=== PATIENT | female | born 1965 | race Caucasian/White ===

== ENCOUNTER 2017-01-15 09:50 | Emergency (ER) | payer MEDICAID ==
[~2017-01-15] VITALS: Ht 172.7 cm; Wt 79.4 kg
[~2017-01-15 09:50] MED LIST: ARTHROTEC50 MG PO; ATARAX,VISTARIL50 MG PO; CIPROFLOXACIN500 MG PO; CLARITIN10 MG PO; EFFEXOR75 MG PO; IRON50 MG PO; NICOTINE T21 MG/24 H T; NORCO 325 MG-51 TAB PO; PRILOSEC40 MG PO; PYRIDIATE200 MG PO; ROBAXIN750 MG PO; THERA1 TAB PO; VITAMIN B-11 TAB PO; Zofran4 MG PO
[2017-01-15 10:38] LABS: BASO % 0.4 % (0.0-1.0); EOS # 0.2 10*3/uL (0.0-0.4); EOS % 3.8 % (1.0-4.0); HEMATOCRIT 32.9 % (37.0-47.0); HEMOGLOBIN 10.8 g/dl (12.0-16.0); LYMPH # 0.6 10*3/uL (1.3-4.4); LYMPH % 11.5 % (27.0-41.0); MEAN CORPUSCULAR HGB 32.8 pg (27.0-31.0); MEAN CORPUSCULAR HGB CONC 32.8 g/dl (33.0-37.0); MEAN PLATELET VOLUME 9.4 fl (9.6-12.3); MONO # 0.5 10*3/uL (0.1-1.0); MONO % 8.6 % (3.0-9.0); NEUT % 75.3 % (47.0-73.0); PLATELET COUNT AUTOMATED 303 10*3/uL (130-400); RED BLOOD COUNT 3.29 10*6/uL (4.10-5.10); RED CELL DISTRI WIDTH 12.9 % (0-14.5); WHITE BLOOD COUNT 5.2 10*3/uL (4.8-10.8)
[2017-01-15 10:52] LABS: ALBUMIN 2.7 gm/dl (3.1-4.5); ALKALINE PHOSPHATASE 180 U/L (45-117); BILIRUBIN, TOTAL 0.3 mg/dl (0.2-1.0); BUN 7 mg/dl (7-24); CARBON DIOXIDE 25 mmol/L (21-32); CHLORIDE 105 mmol/L (98-107); EST GLOM FILT AFRICAN AMERICAN > 60 ml/min; GLUCOSE 94 mg/dL (65-99); SGOT/AST 26 IU/L (3-35); SGPT/ALT 46 U/L (12-78); SODIUM 139 mmol/L (136-145); TOTAL PROTEIN 6.9 gm/dL (6.4-8.2)
[2017-01-15 11:09] LABS: BILIRUBIN 1+ (NEGATIVE); BLOOD NEGATIVE (NEGATIVE); CLARITY CLOUDY (CLEAR); COLOR YELLOW (YELLOW); GLUCOSE NEGATIVE (NEGATIVE); KETONE TRACE (NEGATIVE); LEUKO ESTERASE NEGATIVE (NEGATIVE); NITRITE NEGATIVE (NEGATIVE); PROTEIN TRACE (NEGATIVE); SPECIFIC GRAVITY 1.015 (1.005-1.030)
[2017-01-15 11:33] LABS: BACTERIA TRACE; RBC 0-2 rbc/hpf (0-2); URINE REFLEX COMMENT NO (NO)
== END 2017-01-15 15:06 | disposition short-term general hospital (02) ==
LOC: ED 09:50
PROVIDERS: Nurse Practitioner Family
DX: K46.0 Unspecified abdominal hernia with obstruction, without gangrene (principal); D64.9 Anemia, unspecified; R03.0 Elevated blood-pressure reading, without diagnosis of hypertension; E46 Unspecified protein-calorie malnutrition; F17.200 Nicotine dependence, unspecified, uncomplicated; K21.9 Gastro-esophageal reflux disease without esophagitis; Z79.899 Other long term (current) drug therapy; Z88.5 Allergy status to narcotic agent; Z90.710 Acquired absence of both cervix and uterus; Z98.84 Bariatric surgery status; Z98.890 Other specified postprocedural states; Z88.1 Allergy status to other antibiotic agents; Z88.8 Allergy status to other drugs, medicaments and biological substances

== ENCOUNTER → 2017-01-28 | Outpatient (CLI) | payer MEDICAID ==
[~2017-01-28] MED LIST changes: +EFFEXOR XR37.5 MG PO; +IBU800 M1 PO; +LASIX20 MG PO; +PRILOSEC20 M1 PO
== END | disposition home or self-care (01) ==
LOC: US 13:29
DX: R60.0 Localized edema (principal)

== ENCOUNTER 2017-01-29 10:57 | Emergency (ER) | payer MEDICAID ==
[~2017-01-29] VITALS: Ht 172.7 cm; Wt 94.3 kg
[~2017-01-29 10:57] MED LIST changes: -EFFEXOR XR37.5 MG PO; -IBU800 M1 PO; -LASIX20 MG PO; -PRILOSEC20 M1 PO
[2017-01-29] MEDS ORDERED: EFFEXOR XR37.5 MG PO (11:06)
[2017-01-29] MEDS ORDERED: PRILOSEC20 M1 PO (11:06)
[2017-01-29] MEDS ORDERED: IBU800 M1 PO (11:07)
[2017-01-29] MEDS ORDERED: LASIX20 MG PO (11:07)
[2017-01-29 11:52] LABS: HEMATOCRIT 31.1 % (37.0-47.0); HEMOGLOBIN 9.7 g/dl (12.0-16.0); MEAN CELL VOLUME 100.6 fl (81.0-99.0); MEAN CORPUSCULAR HGB 31.4 pg (27.0-31.0); MEAN CORPUSCULAR HGB CONC 31.2 g/dl (33.0-37.0); MEAN PLATELET VOLUME 10.1 fl (9.6-12.3); PLATELET COUNT AUTOMATED 612 10*3/uL (130-400); RED BLOOD COUNT 3.09 10*6/uL (4.10-5.10); RED CELL DISTRI WIDTH 13.6 % (0-14.5); WHITE BLOOD COUNT 8.6 10*3/uL (4.8-10.8)
[2017-01-29 12:01] LABS: INTERNATIONAL NORM RATIO 1.2 (2.0-3.5); PROTHROMBIN TIME 13.2 SECONDS (9.0-12.4)
[2017-01-29 12:06] LABS: ALBUMIN 1.8 gm/dl (3.1-4.5); ALKALINE PHOSPHATASE 179 U/L (45-117); BILIRUBIN, TOTAL 0.6 mg/dl (0.2-1.0); BUN 10 mg/dl (7-24); CARBON DIOXIDE 29 mmol/L (21-32); CHLORIDE 106 mmol/L (98-107); EST GLOM FILT AFRICAN AMERICAN > 60 ml/min; GLUCOSE 72 mg/dL (65-99); POTASSIUM 3.2 mmol/L (3.5-5.1); SGOT/AST 19 IU/L (3-35); SGPT/ALT 12 U/L (12-78); SODIUM 145 mmol/L (136-145); TOTAL PROTEIN 6.3 gm/dL (6.4-8.2)
[2017-01-29 12:10] LABS: BASOPHIL # 0.2 10*3/uL (0-0.1); BASOPHILS 2 % (0-1); LYMPHOCYTE # 1.2 10*3/uL (1.3-4.4); METAMYELOCYTES 1 % (0-0); MONOCYTE # 0.4 10*3/uL (0.1-1.0); NEUTROPHIL # 6.7 10*3/uL (2.3-7.9); NEUTROPHILS 78 % (47-73); PLATELET SUFFICIENCY HIGH (NORMAL); TOTAL CELLS COUNTED 100 #CELLS
== END 2017-01-29 14:54 | disposition short-term general hospital (02) ==
LOC: ED 10:57
PROVIDERS: Emergency Medicine
DX: K56.60 Unspecified intestinal obstruction (principal); K21.9 Gastro-esophageal reflux disease without esophagitis; F17.200 Nicotine dependence, unspecified, uncomplicated; D64.9 Anemia, unspecified; Z90.710 Acquired absence of both cervix and uterus; Z98.890 Other specified postprocedural states; Z85.048 Personal history of other malignant neoplasm of rectum, rectosigmoid junction, and anus; Z98.84 Bariatric surgery status; Z79.899 Other long term (current) drug therapy; Z88.5 Allergy status to narcotic agent; Z88.1 Allergy status to other antibiotic agents

== ENCOUNTER 2017-02-07 19:08 | Emergency (ER) | payer OTHER ==
[~2017-02-07] VITALS: Ht 172.7 cm; Wt 81.6 kg
[~2017-02-07 19:08] MED LIST changes: +EFFEXOR XR37.5 MG PO; +IBU800 M1 PO; +LASIX20 MG PO; +PRILOSEC20 M1 PO
[2017-02-07 20:20] LABS: HEMATOCRIT 29.9 % (37.0-47.0); HEMOGLOBIN 9.5 g/dl (12.0-16.0); MEAN CORPUSCULAR HGB 31.1 pg (27.0-31.0); MEAN CORPUSCULAR HGB CONC 31.8 g/dl (33.0-37.0); MEAN PLATELET VOLUME 10.3 fl (9.6-12.3); PLATELET COUNT AUTOMATED 499 10*3/uL (130-400); RED BLOOD COUNT 3.05 10*6/uL (4.10-5.10); RED CELL DISTRI WIDTH 14.6 % (0-14.5); WHITE BLOOD COUNT 9.1 10*3/uL (4.8-10.8)
[2017-02-07 20:37] LABS: ALBUMIN 1.9 gm/dl (3.1-4.5); ALKALINE PHOSPHATASE 187 U/L (45-117); BILIRUBIN, TOTAL 0.3 mg/dl (0.2-1.0); BUN 2 mg/dl (7-24); CARBON DIOXIDE 24 mmol/L (21-32); CHLORIDE 105 mmol/L (98-107); EST GLOM FILT AFRICAN AMERICAN > 60 ml/min; GLUCOSE 106 mg/dL (65-99); POTASSIUM 3.9 mmol/L (3.5-5.1); SGOT/AST 17 IU/L (3-35); SGPT/ALT 11 U/L (12-78); SODIUM 141 mmol/L (136-145); TOTAL PROTEIN 6.3 gm/dL (6.4-8.2)
[2017-02-07 20:38] LABS: LYMPHOCYTE # 0.4 10*3/uL (1.3-4.4); MONOCYTE # 0.2 10*3/uL (0.1-1.0); NEUTROPHIL # 8.6 10*3/uL (2.3-7.9); NEUTROPHILS 94 % (47-73); TOTAL CELLS COUNTED 100 #CELLS
[2017-02-07 20:39] LABS: PLATELET SUFFICIENCY HIGH (NORMAL); POLYCHROMASIA SLIGHT
[2017-02-07 20:40] LABS: BILIRUBIN, DIRECT 0.2 mg/dL (0.0-0.2)
[2017-02-07] MEDS ORDERED: SENOKOT PO (21:16)
== END 2017-02-08 00:55 | disposition short-term general hospital (02) ==
LOC: ED 19:08
PROVIDERS: Emergency Medicine
DX: K56.60 Unspecified intestinal obstruction (principal); K21.9 Gastro-esophageal reflux disease without esophagitis; Z88.6 Allergy status to analgesic agent; Z88.1 Allergy status to other antibiotic agents; Z79.899 Other long term (current) drug therapy; Z85.038 Personal history of other malignant neoplasm of large intestine; Z98.84 Bariatric surgery status; Z90.49 Acquired absence of other specified parts of digestive tract; Z98.890 Other specified postprocedural states

== ENCOUNTER 2017-02-22 00:53 | Emergency (ER) | payer OTHER ==
[~2017-02-22] VITALS: Ht 172.7 cm; Wt 77.1 kg
[~2017-02-22 00:53] MED LIST changes: +SENOKOT PO
[2017-02-22 01:25] LABS: BASO % 0.5 % (0.0-1.0); EOS # 0.4 10*3/uL (0.0-0.4); EOS % 4.7 % (1.0-4.0); HEMATOCRIT 36.8 % (37.0-47.0); HEMOGLOBIN 11.5 g/dl (12.0-16.0); LYMPH % 23.3 % (27.0-41.0); MEAN CELL VOLUME 100.5 fl (81.0-99.0); MEAN CORPUSCULAR HGB 31.4 pg (27.0-31.0); MEAN CORPUSCULAR HGB CONC 31.3 g/dl (33.0-37.0); MEAN PLATELET VOLUME 9.9 fl (9.6-12.3); MONO # 1.1 10*3/uL (0.1-1.0); MONO % 12.9 % (3.0-9.0); NEUT % 58.2 % (47.0-73.0); PLATELET COUNT AUTOMATED 518 10*3/uL (130-400); RED BLOOD COUNT 3.66 10*6/uL (4.10-5.10); RED CELL DISTRI WIDTH 18.4 % (0-14.5); WHITE BLOOD COUNT 8.5 10*3/uL (4.8-10.8)
[2017-02-22 01:41] LABS: ALBUMIN 2.3 gm/dl (3.1-4.5); ALKALINE PHOSPHATASE 254 U/L (45-117); BILIRUBIN, TOTAL 0.6 mg/dl (0.2-1.0); BUN 14 mg/dl (7-24); CARBON DIOXIDE 22 mmol/L (21-32); CHLORIDE 101 mmol/L (98-107); EST GLOM FILT AFRICAN AMERICAN 48 ml/min; GLUCOSE 98 mg/dL (65-99); MAGNESIUM 2.4 mg/dL (1.5-2.1); POTASSIUM 3.8 mmol/L (3.5-5.1); SGOT/AST 35 IU/L (3-35); SGPT/ALT 19 U/L (12-78); SODIUM 137 mmol/L (136-145); TOTAL PROTEIN 7.1 gm/dL (6.4-8.2); TROPONIN I < 0.015 ng/ml (<0.045)
[2017-02-22] MEDS ORDERED: MIRALAX POWDER255 GM PO (02:06)
[2017-02-22] MEDS ORDERED: DULCOLAX STOOL100 MG PO (02:07)
[2017-02-22] MEDS ORDERED: ZOFRAN4 MG PO (02:08)
== END 2017-02-22 05:39 | disposition short-term general hospital (02) ==
LOC: ED 00:53
PROVIDERS: Emergency Medicine Emergency Medical Services
DX: K56.60 Unspecified intestinal obstruction (principal); Z98.84 Bariatric surgery status; Z90.49 Acquired absence of other specified parts of digestive tract; K21.9 Gastro-esophageal reflux disease without esophagitis; F17.200 Nicotine dependence, unspecified, uncomplicated; Z88.1 Allergy status to other antibiotic agents; Z88.2 Allergy status to sulfonamides; Z88.6 Allergy status to analgesic agent; Z79.899 Other long term (current) drug therapy

== ENCOUNTER 2017-03-14 16:04 | Emergency (ER) | payer OTHER ==
[~2017-03-14] VITALS: Ht 172.7 cm; Wt 78.0 kg
[~2017-03-14 16:04] MED LIST changes: +DULCOLAX STOOL100 MG PO; +MIRALAX POWDER255 GM PO; +ZOFRAN4 MG PO
[2017-03-14] MEDS ORDERED: TPN ELECTROLYTE20 M1 IV (16:12)
[2017-03-14 17:07] LABS: BASO % 0.3 % (0.0-1.0); EOS # 0.3 10*3/uL (0.0-0.4); EOS % 3.8 % (1.0-4.0); HEMATOCRIT 25.5 % (37.0-47.0); HEMOGLOBIN 8.1 g/dl (12.0-16.0); LYMPH # 1.2 10*3/uL (1.3-4.4); LYMPH % 17.3 % (27.0-41.0); MEAN CELL VOLUME 102.4 fl (81.0-99.0); MEAN CORPUSCULAR HGB 32.5 pg (27.0-31.0); MEAN CORPUSCULAR HGB CONC 31.8 g/dl (33.0-37.0); MEAN PLATELET VOLUME 9.7 fl (9.6-12.3); MONO # 0.5 10*3/uL (0.1-1.0); MONO % 7.4 % (3.0-9.0); NEUT % 70.8 % (47.0-73.0); PLATELET COUNT AUTOMATED 533 10*3/uL (130-400); RED BLOOD COUNT 2.49 10*6/uL (4.10-5.10); RED CELL DISTRI WIDTH 17.9 % (0-14.5); WHITE BLOOD COUNT 7.1 10*3/uL (4.8-10.8)
[2017-03-14 17:24] LABS: ALBUMIN 1.8 gm/dl (3.1-4.5); ALKALINE PHOSPHATASE 141 U/L (45-117); BILIRUBIN, TOTAL 0.3 mg/dl (0.2-1.0); BUN 22 mg/dl (7-24); CARBON DIOXIDE 27 mmol/L (21-32); CHLORIDE 105 mmol/L (98-107); EST GLOM FILT AFRICAN AMERICAN > 60 ml/min; GLUCOSE 126 mg/dL (65-99); POTASSIUM 3.7 mmol/L (3.5-5.1); SGOT/AST 32 IU/L (3-35); SGPT/ALT 32 U/L (12-78); SODIUM 142 mmol/L (136-145); TOTAL PROTEIN 5.8 gm/dL (6.4-8.2)
== END 2017-03-14 18:31 | disposition short-term general hospital (02) ==
LOC: ED 16:04
PROVIDERS: Registered Nurse
DX: K56.60 Unspecified intestinal obstruction (principal); D64.9 Anemia, unspecified; M54.5 Low back pain; F17.200 Nicotine dependence, unspecified, uncomplicated; Z88.1 Allergy status to other antibiotic agents; Z88.6 Allergy status to analgesic agent; Z79.899 Other long term (current) drug therapy; Z90.49 Acquired absence of other specified parts of digestive tract; Z98.890 Other specified postprocedural states; Z90.710 Acquired absence of both cervix and uterus; Z98.84 Bariatric surgery status

== ENCOUNTER → 2017-04-28 | Outpatient (CLI) | payer OTHER ==
[~2017-04-28] MED LIST changes: +TPN ELECTROLYTE20 M1 IV
== END | disposition home or self-care (01) ==
LOC: LAB 12:26
DX: E53.8 Deficiency of other specified B group vitamins (principal)

== ENCOUNTER 2017-05-03 12:37 | Emergency (ER) | payer OTHER ==
[~2017-05-03] VITALS: Wt 72.1 kg
[2017-05-03 13:45] LABS: BILIRUBIN NEGATIVE (NEGATIVE); BLOOD NEGATIVE (NEGATIVE); CLARITY CLEAR (CLEAR); COLOR YELLOW (YELLOW); GLUCOSE NEGATIVE (NEGATIVE); KETONE NEGATIVE (NEGATIVE); LEUKO ESTERASE 1+ (NEGATIVE); NITRITE NEGATIVE (NEGATIVE); UROBILINOGEN 0.2 E.U./dl (0.2-1.0)
[2017-05-03 13:46] LABS: HEMATOCRIT 32.3 % (37.0-47.0); HEMOGLOBIN 10.1 g/dl (12.0-16.0); MEAN CELL VOLUME 95.8 fl (81.0-99.0); MEAN CORPUSCULAR HGB CONC 31.3 g/dl (33.0-37.0); MEAN PLATELET VOLUME 9.1 fl (9.6-12.3); PLATELET COUNT AUTOMATED 282 10*3/uL (130-400); RED BLOOD COUNT 3.37 10*6/uL (4.10-5.10); RED CELL DISTRI WIDTH 12.7 % (0-14.5); WHITE BLOOD COUNT 5.5 10*3/uL (4.8-10.8)
[2017-05-03 14:06] LABS: ALBUMIN 2.6 gm/dl (3.1-4.5); ALKALINE PHOSPHATASE 144 U/L (45-117); BUN 30 mg/dl (7-24); CHLORIDE 105 mmol/L (98-107); CREATININE 0.78 mg/dL (0.55-1.02); POTASSIUM 4.5 mmol/L (3.5-5.1); SGOT/AST 91 IU/L (3-35); SGPT/ALT 51 U/L (12-78); SODIUM 136 mmol/L (136-145); TOTAL PROTEIN 6.5 gm/dL (6.4-8.2)
[2017-05-03 14:06] LABS: BACTERIA 2+; CALCIUM OXALATE CRYSTALS 3+
[2017-05-03 14:12] LABS: BASOPHILS 1 % (0-1); PLATELET SUFFICIENCY NORMAL (NORMAL); TOTAL CELLS COUNTED 100 #CELLS
[2017-05-03 14:14] LABS: POLYCHROMASIA SLIGHT
[2017-05-03] MEDS ORDERED: TRAMADOL HCL50 MG PO (14:33)
== END 2017-05-03 15:00 | disposition home or self-care (01) ==
LOC: ED 12:37
PROVIDERS: Emergency Medicine
DX: M54.5 Low back pain (principal); R42 Dizziness and giddiness; K21.9 Gastro-esophageal reflux disease without esophagitis; F17.200 Nicotine dependence, unspecified, uncomplicated; Z88.6 Allergy status to analgesic agent; Z88.1 Allergy status to other antibiotic agents; Z79.899 Other long term (current) drug therapy

== ENCOUNTER → 2017-06-30 | Outpatient (CLI) | payer OTHER ==
[~2017-06-30] MED LIST changes: +TRAMADOL HCL50 MG PO
== END | disposition home or self-care (01) ==
LOC: RAD 06-23 08:00
DX: Z01.818 Encounter for other preprocedural examination (principal); L98.8 Other specified disorders of the skin and subcutaneous tissue

== ENCOUNTER → 2017-07-13 | Outpatient (CLI) | payer OTHER ==
[2017-07-13 10:34] LABS: HEMOGLOBIN 10.7 g/dl (12.0-16.0); MEAN CELL VOLUME 94.8 fl (81.0-99.0); MEAN CORPUSCULAR HGB 30.7 pg (27.0-31.0); MEAN CORPUSCULAR HGB CONC 32.4 g/dl (33.0-37.0); MEAN PLATELET VOLUME 10.1 fl (9.6-12.3); RED BLOOD COUNT 3.48 10*6/uL (4.10-5.10); RED CELL DISTRI WIDTH 18.8 % (0-14.5); WHITE BLOOD COUNT 4.4 10*3/uL (4.8-10.8)
[2017-07-13 10:55] LABS: ALBUMIN 1.9 gm/dl (3.1-4.5); ALKALINE PHOSPHATASE 239 U/L (45-117); BUN 6 mg/dl (7-24); CHLORIDE 110 mmol/L (98-107); CHOLESTEROL 77 mg/dL (<200); CREATININE 0.72 mg/dL (0.55-1.02); HDL CHOLESTEROL 51 mg/dl (40-60); LDL CHOLESTEROL 12 mg/dL (9-159); POTASSIUM 3.8 mmol/L (3.5-5.1); SGOT/AST 25 IU/L (3-35); SGPT/ALT 24 U/L (12-78); SODIUM 141 mmol/L (136-145); TOTAL PROTEIN 5.7 gm/dL (6.4-8.2); TRIGLYCERIDES 71 mg/dl (<150); VLDL CHOLESTEROL 14 mg/dL (6-40)
[2017-07-13 11:31] LABS: VITAMIN D, 25-HYDROXY 15.7 ng/mL (30-100)
== END | disposition home or self-care (01) ==
LOC: LAB 09:44
PROVIDERS: Family Medicine
DX: R53.83 Other fatigue (principal); K46.9 Unspecified abdominal hernia without obstruction or gangrene; R10.9 Unspecified abdominal pain; E55.9 Vitamin D deficiency, unspecified; E78.00 Pure hypercholesterolemia, unspecified; D64.9 Anemia, unspecified

== ENCOUNTER → 2017-07-23 | Outpatient (CLI) | payer OTHER | END | disposition home or self-care (01) | LOC: LAB 11:56 | DX: R05 Cough (principal); E16.2 Hypoglycemia, unspecified ==

== ENCOUNTER 2017-07-31 16:08 | Inpatient (IN) | payer OTHER ==
[~2017-07-31] VITALS: Ht 171.4 cm; Wt 72.6 kg
--- NOTE | ~2017-07-31 | WRIGHTHP ---
[place], [place] PATIENT HISTORY AND PHYSICAL EXAM NAME[id number] UN[facility] #: [id number] ROOM: 507 DOCTOR: DORIE STANLEY MD BIRTHDATE: [birth year] DOS: 07/31/2017 CONTINUATION DICTATION PAST MEDICAL HISTORY: 1. The patient severe protein-calorie malnutrition. 2. Disability and failure to thrive. 3. History of gastric bypass surgery 17 years back. 4. Conklin-Germain syndrome history. 5. History of alcohol abuse and dependence. 6. History of nicotine smoke dependence. The patient presented to the Emergency Department with adverse reaction to allergic reaction from Z-ELIZABETH, which she had taken a week earlier and was just finishing the treatment. The patient had developed swelling in her legs, rash in her lower extremities, lower abdomen, some soreness in her mouth and she was feeling weak. After evaluation in the Emergency Department, she was admitted and started on Solu-Medrol, Phenergan and diuresis with Lasix. The patient started improving with treatment. REVIEW OF SYSTEMS: LUNGS: No increasing shortness of breath or wheezing. GASTROINTESTINAL: No nausea, vomiting, diarrhea or constipation. CARDIOVASCULAR: No chest pains or palpitations. FAMILY HISTORY: Noncontributory. MEDICATIONS: Omeprazole, loratadine, Effexor, ibuprofen, sennosides, MiraLax, Colace, ondansetron. ALLERGIES: Known allergies to CODEINE, SULFUR, BACTRIM. PHYSICAL EXAMINATION: GENERAL: Alert, oriented x 3, moderately obese, generalized weakness. HEENT AND NECK: Extraocular movements are intact. Sclerae are anicteric. Oral mucosa is moist and clean. No obvious facial weakness. Neck is supple without any lymphadenopathy. No thyromegaly. No JVD. No carotid arterial bruits. LUNGS: Clear to auscultation. No wheezing. No rhonchi. CARDIOVASCULAR SYSTEM: Heart rate is regular in rate and rhythm. S1 and S2 normally audible. No significant murmur or any other abnormal cardiac sounds. ABDOMEN: Soft, nontender. No obvious organomegaly. Bowel sounds are present. No obvious herniation. The patient also has multiple scars from multiple previous abdominal surgeries in her lower abdomen and 2 fistulas, 1 in the midline below the umbilicus and 1 in the right lower quadrant. EXTREMITIES: 3+ leg and pedal edema CENTRAL NERVOUS SYSTEM: Alert and oriented x 3. Cranial nerves II-XII are intact. Speech is normal. The patient is able to move all extremities. Normal muscle strength. Deep tendon reflexes are equal on both sides. Plantars were downgoing. SKIN: With red striae over her lower extremities and lower abdomen. [place], [place] PATIENT HISTORY AND PHYSICAL EXAM NAME: ILENE WALKER UNIT #: [id number] ROOM: [facility] DOCTOR: DORIE STANLEY MD BIRTHDATE: [birth year] LABORATORY DATA: Hemoglobin 9.8, white cell count of 4500. Albumin level of 1.9 only. IMPRESSION: 1. Drug reaction to Z-ELIZABETH, treated with Solu-Medrol, Benadryl, diuresis with Lasix. The patient is starting to feel better. 2. Severe protein calorie malnutrition related to multiple bowel surgeries in the past. 3. History of colorectal cancer, status post resection in 2010 with fistulous, evaluated by Infectious Disease specialist. The patient to follow up with the GI surgeons for repeat surgery. The patient also seen by Dr. Hebert, the general surgeon here. 4. Dehydration and elevation of BUN and creatinine, improved with hydration, normal saline. 5. Chronic leukopenia and anemia from uncertain etiology. DORIE STANLEY MD CM:HISPHYS:PATIENT HISTORY AND PHYSICAL EXAMINATION 06 49 DORIE STANLEY MD 08/02/171850 interface
--- NOTE | ~2017-07-31 | PR ---
[place], [place] PROGRESS NOTE NAME: ILENE WALKER UNIT #: [id number] ROOM: 507 DOCTOR: DORIE STANLEY MD BIRTHDATE: [birth year] DOS: 08/02/2017 SUBJECTIVE: The patient is feeling much better with treatment with diuresis and Solu-Medrol and Benadryl. She is responding to treatment well. OBJECTIVE: VITAL SIGNS: Stable. GENERAL APPEARANCE: The patient is alert and oriented x 3, in no visible distress. HEENT AND NECK: Exam within normal limits. CARDIOVASCULAR SYSTEM: Heart rate is regular in rate and rhythm. S1 and S2 normally audible. LUNGS: Clear to auscultation. ABDOMEN: Soft, nontender. No obvious organomegaly. Bowel sounds are present. EXTREMITIES: Reduced leg edema. The patient has striae still over her lower extremities. IMPRESSION: 1. Overall poor health, severe protein calorie malnutrition and malnourishment related to multiple bowel surgeries. 2. Drug rash and leg edema related to ____. 3. Hypoalbuminemia, improving with diuresis with IV Lasix. 4. Chronic leukopenia and anemia related to her health status. Hemoglobin and white cell counts are being monitored. 5. 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 The patient to follow up as an outpatient with her GI surgeons. 6. Dehydration and elevation of BUN and creatinine has resolved with hydration and normal saline. DORIE STANLEY MD CM:PNTRANS 10 11 DORIE STANLEY MD 08/02/17 221 interface
--- NOTE | ~2017-07-31 | WRIGHTHP ---
[place], [place] PATIENT HISTORY AND PHYSICAL EXAM NAME: ILENE WALKER UNIT #: [id number] ROOM: 507 DOCTOR: LIZETH RATLIFF,DORIE Cosby BIRTHDATE: [birth year] DOS: 07/31/2017 HISTORY OF PRESENT ILLNESS: The patient is a 52-year-old female with a past medical history of: 1. Colorectal cancer, status post surgery in 2010 and fistulas. 2. History of gastric bypass surgery in year 1999. 3. History of cholecystectomy. 4. Previous history of renal abscess. 5. Multiple hernia surgeries DICTATION ENDS HERE DORIE STANLEY MD CM:HISPHYS:PATIENT HISTORY AND PHYSICAL EXAMINATION 1506 1627 DORIE STANLEY MD 08/03/17 1046 CHANCE CAUSEY.R
--- NOTE | ~2017-07-31 | CON ---
[place], [place] REPORT OF CONSULTATION NAME: ILENE WALKER UNIT #: [id number] ROOM: 507 DOCTOR: EDUAR LILLY,DECEMBER BIRTHDATE: [birth year] DOS: HISTORY OF PRESENT ILLNESS: The patient is a pleasant 52-year-old female who came to the Emergency Room with a swelling of her lower extremities. She has recently been on Z-ELIZABETH for upper respiratory infection, but no other antibiotics. She has lower abdominal chronic fistula from surgery that she had in January of this year. She had had an infected up abdominal mesh, which was removed in [place]. She does have plans of possibly repairing the fistula in September. She is very malnourished with low albumin, lower extremity edema. She has had no fevers. WBCs are 3.4. Also complains of her mouth burning when she eats or drinks. PAST MEDICAL HISTORY: As above as well as , cholecystectomy, hysterectomy, tonsils and adenoidectomy, gastric bypass, multiple hernia surgeries, renal abscess. SOCIAL HISTORY: She has greater than 66-isyg-euin history of smoking, states she stopped recently, occasional social alcohol use. Denies illicit drug use. CURRENT MEDICATIONS: Include Lac-Hydrin, nystatin, Effexor, Claritin, Wellbutrin, Prilosec, Benadryl, Solu-Medrol, Zofran, Motrin, Colace. LABORATORY DATA: WBC is 3.4, platelets 176. BUN 7, creatinine 0.94. Lactic acid 1.3. Blood and urine cultures negative. REVIEW OF SYSTEMS: As above in history of present illness. She has been afebrile since admission. PHYSICAL EXAMINATION: VITAL SIGNS: Show temperature 98.3, pulse 64, respirations 18, BP 107/63: GENERAL: A 52-year-old female, in no acute distress. HEAD, EYES, EARS, NOSE AND THROAT: Normocephalic. Tongue bright red and tender. LUNGS: Clear to auscultation bilaterally. Respirations even and unlabored. HEART: Regular rhythm. No murmur appreciated. ABDOMEN: Soft, extensive scarring, lower abdomen with small wound with purulent discharge. No tenderness. EXTREMITIES: +2 edema bilateral of lower extremities with cracking dry skin. No signs of cellulitis. SKIN: Warm, pale, dry, free of rashes. ASSESSMENT AND PLAN: Abdominal fistula for which no antibiotics are indicated at this point, as well as thrush for which nystatin swish and swallow has already been ordered. I did discuss the case with Dr. Hyde and Dr. Jessi Bateman. No further antibiotics are indicated at this point. Follow up on her cultures. ADDENDUM To the Infectious Disease consult on the patient from August 01. After [place], [place] REPORT OF CONSULTATION NAME: ILENE WALKER UNIT #: [id number] ROOM: [facility] DOCTOR: EDUAR LILLYDECEMBER BIRTHDATE: [birth year] reviewing the labs, microbiology and radiographs, I agree with the above plans as described. We will follow the patient up clinically and adjust accordingly. SUMIT WITT CNP JESSI BATEMAN MD CM:CONSTR:REPORT OF CONSULTATION 1636 08/03/17 0230 interface
--- NOTE | ~2017-07-31 | WRIGHTHP ---
[place], [place] PATIENT HISTORY AND PHYSICAL EXAM [id number] UNIT #: [id number] ROOM: 507 DOCTOR: DORIE STANLEY MD BIRTHDATE: [birth year] DOS: 07/31/2017 HISTORY OF PRESENT ILLNESS: The patient is a 52-year-old female with a past medical history of Colorectal cancer, status post surgery in 2010 and fistulas, history of gastric bypass surgery in year 1999, history of cholecystectomy, previous history of renal abscess, and multiple hernia surgeries. The patient presented with a drug allergic reaction from Z-ELIZABETH with skin rash, itching, leg edema, some irritation in her throat. The patient was taking this antibiotic for respiratory and sinus infection recently, about 5 days back. In the Emergency Department, she was found to have leg edema, red lines running over her lower abdomen, back and legs and the symptoms were getting progressively worse since Wednesday. After evaluation in the Emergency Department, she was found to have acute kidney injury with some elevation of creatinine, leukopenia, drug reaction and recommended for admission for the management. After admission, the patient says her leg swelling and rash is improving. The patient still has some irritation in her mouth and a sore throat. No chest pain. No shortness of breath. No GI or urinary symptoms. REVIEW OF SYSTEMS: LUNGS: No increasing shortness of breath or wheezing. GASTROINTESTINAL: No nausea, vomiting, diarrhea or constipation, but she has chronic fistulas in her lower abdomen and left lower quadrant, which drained slightly after her bowel surgery this year in April 2017. CARDIOVASCULAR: No palpitations or chest pains. FAMILY HISTORY: Noncontributory. SOCIAL HISTORY: Denies smoking cigarettes, alcohol and drug abuse. HOME MEDICATIONS: Omeprazole, Claritin, Effexor, ibuprofen, furosemide, Colace, Zofran. ALLERGIES: Known allergies to CODEINE, BACTRIM. PHYSICAL EXAMINATION: GENERAL: Alert, oriented x 3, in no visible distress. HEENT AND NECK: Extraocular movements are intact. Sclerae are anicteric. Oral mucosa is moist and clean. No obvious facial weakness. Neck is supple without any lymphadenopathy. No thyromegaly. No JVD. No carotid arterial bruits. LUNGS: Clear to auscultation. No wheezing. No rhonchi. CARDIOVASCULAR SYSTEM: Heart rate is regular in rate and rhythm. S1 and S2 normally audible. No significant murmur or any other abnormal cardiac sounds. ABDOMEN: The patient has healed surgical scars and two draining fistulas, one below the umbilicus and one to the left lower quadrant. EXTREMITIES: She has 2-3+ leg and pedal edema and pink striae, which are vertical is on her lower extremities. CENTRAL NERVOUS SYSTEM: Alert and oriented x 3. Cranial nerves II-XII are intact. Speech is normal. The patient is able to move all extremities. Normal muscle strength. Deep tendon reflexes are equal on both sides. Plantars were downgoing. [place], [place] PATIENT HISTORY AND PHYSICAL EXAM NAME: ILENE WALKER UNIT #: [id number] ROOM: [facility] DOCTOR: DORIE STANLEY MD BIRTHDATE: [birth year] LABORATORY DATA: Normal serum electrolytes. Potassium low at 3.2. Hemoglobin 9, white cell count low at 3400. Serum albumin low at 1.9. BUN and creatinine 13 and 1.2, improved to normal after hydration. IMPRESSION AND PLAN: 1. The patient with severe drug reaction to BACTRIM, leg edema, skin rash, stomatitis and pharyngitis, all improving with treatment with Solu-Medrol, Benadryl and diuresis with Lasix. 2. Candidal stomatitis, being treated with nystatin. 3. Suboptimal health with anemia and leukopenia and severe protein calorie malnutrition, apparently related to previous bowel surgeries. The patient apparently also has history of bowel resection for colon cancer in 2010. 4. Bowel resection in February 2017. 5. Chronic leukopenia from uncertain etiology. 6. Severe protein calorie malnutrition. DORIE STANLEY MD CM:HISPHYS:PATIENT HISTORY AND PHYSICAL EXAMINATION 1547 1655 DORIE STANLEY MD 08/03/17 1046 interface
--- NOTE | ~2017-07-31 | DS ---
[place], [place] DISCHARGE SUMMARY NAME: ILENE WALKER UNIT #: [id number] ROOM: 507 DOCTOR: DORIE STANLEY MD BIRTHDATE: [birth year] DOS: 08/03/2017 DISCHARGE DIAGNOSES: 1. Severe drug reaction to BACTRIM, resolved. 2. Candidiasis dermatitis, treated with nystatin. 3. Severe protein-calory malnutrition. 4. Chronic leukopenia from uncertain etiology. 5. Bowel resection in February 2017. 6. The patient with fistulas after gastric bypass surgery in 1999. 7. History of colorectal cancer, status post resection in 2010. 8. Multiple hernia surgeries. 9. History of renal abscess. HOSPITAL COURSE: The patient presented with what appeared like severe allergic reaction, skin rash, striae, leg edema and she was treated with corticosteroids and Benadryl and diuresis and her condition has resolved. The patient also seen by Cardiology and she was found to have multifocal atrial tachycardia, which was evaluated by retail presentation specialist. Dr. Mia Nicole. The patient is normal sinus rhythm now. The patient can get further cardiology workup and she has been asked to follow up with the retail presentation specialist. LABORATORY DATA: Cardiac enzymes were negative. TSH was normal. Blood cultures were negative. The patient needs to follow up with her surgeons who were following her for the fistulas. White cell count low at 3400, which is chronic, hemoglobin at 9 and stable. Normal serum electrolytes. DISCHARGE MANAGEMENT: Venlafaxine 37.5 mg daily, loratadine 10 mg daily, Effexor 150 mg daily, Wellbutrin SR 150 mg a day, omeprazole 40 mg a day, ibuprofen p.r.n., Colace 100 mg b.i.d. [place], [place] DISCHARGE SUMMARY NAME: ILENE WALKER UNIT #: [id number] ROOM: 507 DOCTOR: DORIE STANLEY MD BIRTHDATE: [birth year] DORIE STANLEY MD CM:DISCHARG 48 32 DORIE STANLEY MD 08/03/171933 interface
--- NOTE | 2017-07-31 00:10 | NUR ---
PT. STATED RELIEF OF NAUSEA AND PAIN AT THIS TIME. STILL C/O OF ITCHING. AWAITING [facility] VERIFICATION OF BENADRYL.
[~2017-07-31 16:08] MED LIST changes: -SENOKOT PO; +SENOKOT8.6 MG PO
[2017-07-31 16:15] VITALS: BP 121/59
[2017-07-31 17:59] LABS: BASO % 0.9 % (0.0-1.0); EOS # 0.3 10*3/uL (0.0-0.4); EOS % 6.1 % (1.0-4.0); HEMATOCRIT 30.6 % (37.0-47.0); HEMOGLOBIN 9.8 g/dl (12.0-16.0); LYMPH # 1.1 10*3/uL (1.3-4.4); LYMPH % 25.5 % (27.0-41.0); MEAN CORPUSCULAR HGB 31.7 pg (27.0-31.0); MEAN PLATELET VOLUME 10.1 fl (9.6-12.3); MONO # 0.4 10*3/uL (0.1-1.0); MONO % 9.8 % (3.0-9.0); NEUT # 2.5 10*3/uL (2.3-7.9); NEUT % 57.5 % (47.0-73.0); PLATELET COUNT AUTOMATED 211 10*3/uL (130-400); RED BLOOD COUNT 3.09 10*6/uL (4.10-5.10); RED CELL DISTRI WIDTH 19.9 % (0-14.5); WHITE BLOOD COUNT 4.3 10*3/uL (4.8-10.8)
--- NOTE | 2017-07-31 18:00 | NUR ---
PT PLACED ON CONTINOURS PULSE OX AFTER MORPHINE ADMINISTRATION. 99%
[2017-07-31 18:18] LABS: ALBUMIN 1.9 gm/dl (3.1-4.5); CREATININE 1.2 mg/dL (0.55-1.02); POTASSIUM 4.3 mmol/L (3.5-5.1); TOTAL PROTEIN 5.4 gm/dL (6.4-8.2)
[2017-07-31 18:20] LABS: ACT PARTIAL THROMBO TIME 26.7 SECONDS (20.8-31.5)
[2017-07-31 19:43] LABS: BILIRUBIN NEGATIVE (NEGATIVE); BLOOD NEGATIVE (NEGATIVE); CLARITY CLEAR (CLEAR); COLOR YELLOW (YELLOW); GLUCOSE NEGATIVE (NEGATIVE); KETONE NEGATIVE (NEGATIVE); LEUKO ESTERASE 1+ (NEGATIVE); NITRITE NEGATIVE (NEGATIVE); PH 5.5 (5.0-9.0); SPECIFIC GRAVITY <= 1.005 (1.005-1.030); UROBILINOGEN 0.2 E.U./dl (0.2-1.0)
[2017-07-31 19:49] LABS: BACTERIA 2+; RBC 0-2 rbc/hpf (0-2)
[2017-07-31 20:25] VITALS: BP 116/80
--- NOTE | 2017-07-31 20:27 | NUR ---
A 52, admitted to 5E, under the services of Dr. LIZETH RATLIFF,DORIE Cosby with a diagnosis of PALOMA. Chief complaint is LOWER LEG EDEMS. Patient arrived via stretcher from ER. Monitor applied. Initial assessment completed. Vital signs taken and recorded. DR. LIZETH RATLIFF,DORIE Cosby notified of admission to the unit. Orders received. See assessment for past medical history, medications and allergies. Patient and/or family oriented to unit. [facility] visitation policy reviewed. Clothing/patient valuable form completed. STEPHANIE ELIZABETH
[2017-07-31 20:30] VITALS: BP 116/80
--- NOTE | 2017-07-31 20:30 | NUR ---
A 52, admitted to 5E, under the services of Dr. LIZETH RATLIFF,DORIE Cosby with a diagnosis of ACUTE KIDNEY INJURY. Chief complaint is PAIN, ITCHING, SWELLING TO BLE. Patient arrived via ambulatory from ER. Monitor applied. Initial assessment completed. Vital signs taken and recorded. DR. LIZETH RATLIFF,DORIE Cosby notified of admission to the unit. ORDERS RECEIVED. See assessment for past medical history, medications and allergies. Patient and/or family oriented to unit. Clothing/patient valuable form completed. GERMÁN MOSELEY
[2017-07-31] MEDS ORDERED: PRILOSEC20 M1 PO (20:35)
[2017-07-31] MEDS ORDERED: IRON18 MG PO (20:36)
[2017-07-31] MEDS ORDERED: VITAMIN D5000 UNIT PO (20:37)
[2017-07-31] MEDS ORDERED: BUPROPION HCL150 M1 PO (20:41)
[2017-07-31] MEDS ORDERED: AVPAK AZITHROM250 M1 PO (20:42)
--- NOTE | 2017-07-31 20:44 | NUR ---
MED REC COMPLETED WITH PATIENT ALERT AND ORIENTED TO PERSON PLACE AND TIME. STATES WAS TAKING A ZPACK WHEN THIS ALL STARTED. ADDED TO MED REC WITH COMMENT. ALSO ADDED TO ALLERGY LIST
--- NOTE | 2017-07-31 21:53 | NUR ---
DR. GARRETT CONTACTED AT THIS TIME FOR CONSULT. PER DR. GARRETT, COVER SURGICAL WOUND SITES WITH DRY DRESSING. HE WILL SEE THE PT. IN THE MORNING.
--- NOTE | 2017-07-31 22:00 | NUR ---
SPOKE WITH ID AT THIS TIME. ID WILL SEE HER IN THE MORNING FOR DRAINING SURGICAL WOUND CONSULT.
--- NOTE | 2017-07-31 23:41 | NUR ---
PT. C/O NAUSEA AND PAIN TO BLE 5/10. PRN ZOFRAN AND MOTRIN ADM. AT THIS TIME.
[2017-08-01] VITALS: BP 125/87
--- NOTE | 2017-08-01 00:05 | NUR ---
SPOKE WITH DR. STANLEY AT THIS TIME IN REGARDS TO PTS. CONSTANT ITCHING. RECEIVED ORDER OF BENADRYL Q 6H PRN FOR ITCHING.
--- NOTE | 2017-08-01 00:59 | NUR ---
BENADRYL ADM. AT THIS TIME FOR PT. C/O ITCHING. WILL MONITOR FOR EFFECTIVENESS.
[2017-08-01 06:26] LABS: BASO % 0.3 % (0.0-1.0); EOS % 0.6 % (1.0-4.0); LYMPH # 0.4 10*3/uL (1.3-4.4); LYMPH % 10.3 % (27.0-41.0); MEAN CELL VOLUME 98.2 fl (81.0-99.0); MEAN CORPUSCULAR HGB 31.6 pg (27.0-31.0); MEAN CORPUSCULAR HGB CONC 32.1 g/dl (33.0-37.0); MEAN PLATELET VOLUME 10.2 fl (9.6-12.3); MONO # 0.1 10*3/uL (0.1-1.0); MONO % 2.3 % (3.0-9.0); NEUT # 2.9 10*3/uL (2.3-7.9); NEUT % 85.9 % (47.0-73.0); PLATELET COUNT AUTOMATED 176 10*3/uL (130-400); RED BLOOD COUNT 2.85 10*6/uL (4.10-5.10); RED CELL DISTRI WIDTH 19.6 % (0-14.5); WHITE BLOOD COUNT 3.4 10*3/uL (4.8-10.8)
[2017-08-01 06:54] LABS: BUN 7 mg/dl (7-24); CHLORIDE 106 mmol/L (98-107); CREATININE 0.94 mg/dL (0.55-1.02)
[2017-08-01 06:57] LABS: POTASSIUM 3.2 mmol/L (3.5-5.1); SODIUM 140 mmol/L (136-145)
[2017-08-01 08:00] VITALS: BP 98/50
--- NOTE | 2017-08-01 08:00 | NUR ---
CALL FROM [employer] THAT PT IS IN [facility]-TACH. UPON ENTEREING THE ROOM, PT IS STANDING, TALKING ON TELEPHONE ORDERING BREAKFAST. ALSO SCRATCHIN AT HER CHEST AREA. PT DENIES C/O CHEST PAIN OR S.O.B, DENIES VISUAL CHANGES. NO OBVIOUS S/S DISTRESS NOTED. WILL CONTINUE TO MONITOR. SEE SHIFT ASSESSMENT.
--- NOTE | 2017-08-01 08:29 | NUR ---
MEDICATED PO ORDERED PER PT REQUEST WITH BENADRYL FOR C/O ITCHING & MOTRIN FOR C/O "BURNING, TINGLING, ACHING LEGS" BILATERALLY. SEE EMAR.
--- NOTE | 2017-08-01 09:10 | NUR ---
DR GARRETT IN TO SEE PT, VIEWED WOUNDS TO ABDOMEN WELL SMALL AMOUNT GREENISH DRAINAGE. NO NEED TO CULTURE WOUND PER DR GARRETT.
[2017-08-01 12:00] VITALS: BP 107/63
--- NOTE | 2017-08-01 15:22 | NUR ---
DR STANLEY IN TO SEE PT.
[2017-08-01 16:00] VITALS: BP 115/68
--- NOTE | 2017-08-01 16:34 | NUR ---
DR STANLEY NOTIFIED OF HEMATURIA, NO NEW ORDERS. INFORMED UA & UC HAD PREVIOUSLY BEEN SENT.
[2017-08-01 20:00] VITALS: BP 111/68
--- NOTE | 2017-08-01 21:21 | NUR ---
PATIENT MEDICATED WITH PRN MOTRIN FOR PAIN IN LEGS RATED 8/10 ON A 0/10 PAIN SCALE
--- NOTE | 2017-08-01 22:49 | NUR ---
MEDICATED WITH PRN BENEDRYL FOR C/O ITCHINESS
[2017-08-02] VITALS: BP 107/63
--- NOTE | 2017-08-02 06:56 | NUR ---
PATIENT RESTING IN BED WITH NO S/S OF DISTRESS. BED IN LOWEST POSITION, CALL LIGHT IN REACH
[2017-08-02 07:11] LABS: BUN 9 mg/dl (7-24); CHLORIDE 109 mmol/L (98-107); CREATININE 0.76 mg/dL (0.55-1.02); POTASSIUM 3.8 mmol/L (3.5-5.1); SODIUM 141 mmol/L (136-145)
[2017-08-02 08:00] VITALS: BP 99/50
--- NOTE | 2017-08-02 08:00 | NUR ---
LAB RESULTS AND ORDERS REVIEWED. NO ACUTE DISTRESS NOTED AT THIS TIME. PT RESTING IN BED. CALL LIGHT IN REACH.
--- NOTE | 2017-08-02 09:35 | NUR ---
Desktop Analyst in to talk to patient. Patient states lives at HOME with HER . There are 14 steps in the home. Physician: DR MORAN Pharmacy: [facility] Home health services: NONE Patient's level of ADLs: INDEPENDENT Patient has working utilities: YES DME: NONE Follow-up physician's appointment after d/c: PREFERS TO MAKE HER OWN APPT Does patient want to access PORTAL?: Discharge plan HOME. SARANYA CHOWDARY
--- NOTE | 2017-08-02 11:02 | NUR ---
DEBRA SPOKE WITH PT ABOUT DISCHARGE PLANS AND 'S RECOMMENDATIO FOR SNF. pT REFUSES SNF. PT WILLING TO ACCEPT HOME HEALTH SERVICES [facility] OR [facility].
[2017-08-02 12:00] VITALS: BP 109/61
--- NOTE | 2017-08-02 15:11 | NUR ---
ILENE WALKER [id number] Please refer to the physician's history and physical for past medical history, comorbid conditions, and allergies. Diagnosis: ACUTE KIDNEY INJURY,LEUKOPENIA,PLEURAL EFFUSSION Omid Score: 22,LOW OR NO RISK WOUND DESCRIPTIONS: Location of the wound: Left lower quadrant Type of wound: Thickness: Full Size: 0.2cm 0.2cm x 0.4cm Tunneling: none Undermining: none Sinus Tract: none Presence of Exudate: Serous Amount: Light Color: Harris Odor: None Periwound Skin Appearance: Normal Wound edges: approximated Pain (associated with wound): patient states tender to touch at time of assessment How does patient state this happened? patient states she had surgery at [facility] and this area was from a drain from that surgery and never healed. Location of the wound: midline ABD Type of wound: surgical Thickness: Full Size: 0.5cm x 0.5cm 0.3cm Tunneling: none Undermining: none Sinus Tract: none Presence of Exudate: Serous Amount: Light Color: Harris Odor: None Periwound Skin Appearance: Normal Wound edges: approximated Pain (associated with wound): patient states tender to touch during assessment How does patient state this happened? patient states she had surgery at [facility] Surface the patient is resting on: Isoflex SKIN PREVENTION RECOMMENDATION: 1. Pressure redistribution support surface as appropriate 2. Elevate heels 3. Remove boots/TEDS every shift and reapply 4. Head of bed 30 degrees as tolerated 5. Assess nutrition and hydration 6. Manage moisture 7. Avoid the use of containment devices while in bed 8. Use absorptive products on surfaces limit layers of linens on bed 9. Turn and reposition every 1-2 hours in bed and every 1 hour in chair as tolerated 10. Weight shifts every 15 minutes while up in chair 11. Offloading with pillows or device to keep heels elevated off bed 12. Monitor skin at least every shift 13. Inspect under medical devices twice a day WOUND TREATMENT RECOMMENDATIONS: Cleanse wounds with normal saline and cover with 4x4s or ABD and secure with paper tape.
--- NOTE | 2017-08-02 15:36 | NUR ---
PHYSICAL THERAPY Physical Therapy Evaluation completed this date. See eval document for further details. Based on the I demonstrated with all functional testing, no ongoing PT intervention is needed at this time. Recommend d/c home [place] [id number] based on chart review and PT eval. Shagufta Wade, PT
[2017-08-02 16:00] VITALS: BP 114/51
--- NOTE | 2017-08-02 19:57 | NUR ---
PATIENT RESTING IN BED WITH NO S/S OF DISTRESS. WATCHING TV. DENIES ANY NEEDS AT THIS TIME. BED IN LOWEST POSITION, CALL LIGHT IN REACH
[2017-08-02 20:00] VITALS: BP 101/58
--- NOTE | 2017-08-02 21:41 | NUR ---
PATIENT MEDICATED WITH PRN MOTRIN FOR C/O PAIN IN THE LEGS RATED 6/10 ON A 0/10 PAIN SCALE
--- NOTE | 2017-08-02 22:06 | NUR ---
TOBACCO STRIPPING MACHINE OPERATOR CALLED. PATIENT IS HAVING EPISODES OF PAT WITH FREQEUENT PAC'S. STAT EKG ORDERED PER POLICY
--- NOTE | 2017-08-02 22:38 | NUR ---
DR GLASER AWARE OF PATIENT HAVING FREQUENT PAC'S AND GOING INTO PAT WITH HR IN THE 130'S. PATIENT DENIES CHEST PAIN OR SHORTNESS OF BREATH BUT DOES STATE SHE CAN FEEL PALPITATIONS. DR GLASER ORDERED CARDIOLOGY CONSULT FOR IN THE MORNING AND IF IT HAPPENS AGAIN TO CALL HER. ALSO MADE AWARE OF CALCIUM OF 7.3. STATES THAT IS OK.
--- NOTE | 2017-08-02 22:49 | NUR ---
DR FONTANEZ'S ANSWERING SERVICE AWARE OF CONSULT. AWAITING CALL BACK
[2017-08-03] VITALS: BP 105/55
--- NOTE | 2017-08-03 01:21 | NUR ---
DR GLASER AWARE OF PATIENT HAVING MORE FREQUENT PAC'S AND PAT. STATES THEY ARE NOTHING TO WORRY ABOUT. NO ORDERS RECEIVED.
[2017-08-03 07:21] LABS: BUN 8 mg/dl (7-24); CHLORIDE 109 mmol/L (98-107); SODIUM 140 mmol/L (136-145)
[2017-08-03 08:00] VITALS: BP 103/58
[2017-08-03 08:12] LABS: RHEUMATOID ARTHRITIS FACTOR <10.0 IU/mL (0.0-13.9)
[2017-08-03 12:00] VITALS: BP 128/76
--- NOTE | 2017-08-03 14:54 | NUR ---
[facility] ACCEPT PT'S INSURANCE. SW WILL MAKE REFERRAL TO [facility] WHEN PT IS DISCHARGED.
--- NOTE | 2017-08-03 14:56 | NUR ---
DRSG CHANGED PER ORDERS.
[2017-08-03 16:00] VITALS: BP 120/70
--- NOTE | 2017-08-03 16:33 | NUR ---
PT RESTING IN BED, NO DISTRESS NOTED. NO VOICED C/O. CALL LIGHT WITHIN REACH. WILL MONITOR
--- NOTE | 2017-08-03 18:53 | NUR ---
PT REFUSED DC PHOTOS OF ABD WOUNDS
--- NOTE | 2017-08-03 19:01 | NUR ---
Discharge instructions reviewed with patient/family. Patient receptive and verbalizes understanding. Follow-up care arranged. Written instructions given to patient/family. EZEKIEL SHARPE
--- NOTE | 2017-08-04 09:21 | NUR ---
SW FAXED HOME HEALTH REFERRAL TO [facility].
== END 2017-08-03 19:01 | disposition home health service (06) | DRG 606 ==
LOC: ED 16:08 → 5E 19:15 → EDHOLD 19:15 → 5E 19:25
PROVIDERS: Emergency Medicine; Nurse Practitioner; ADMIT Internal Medicine
DX: R21 Rash and other nonspecific skin eruption (principal); E43 Unspecified severe protein-calorie malnutrition; L51.1 Stevens-Johnson syndrome; K63.2 Fistula of intestine; B37.89 Other sites of candidiasis; N17.9 Acute kidney failure, unspecified; B37.0 Candidal stomatitis; I47.1 Supraventricular tachycardia; E86.0 Dehydration; B37.2 Candidiasis of skin and nail; I50.810 Right heart failure, unspecified; J02.9 Acute pharyngitis, unspecified; K13.70 Unspecified lesions of oral mucosa; R60.0 Localized edema; L90.6 Striae atrophicae; K21.9 Gastro-esophageal reflux disease without esophagitis; T37.0X5A Adverse effect of sulfonamides, initial encounter; F10.10 Alcohol abuse, uncomplicated; I49.1 Atrial premature depolarization; R26.2 Difficulty in walking, not elsewhere classified; D64.9 Anemia, unspecified; L98.8 Other specified disorders of the skin and subcutaneous tissue; L30.8 Other specified dermatitis; D72.819 Decreased white blood cell count, unspecified; Z90.49 Acquired absence of other specified parts of digestive tract; Z98.84 Bariatric surgery status; Z85.038 Personal history of other malignant neoplasm of large intestine; Z88.2 Allergy status to sulfonamides; Z88.6 Allergy status to analgesic agent; Z90.710 Acquired absence of both cervix and uterus; Z98.891 History of uterine scar from previous surgery; Z82.3 Family history of stroke; Z80.9 Family history of malignant neoplasm, unspecified; Z79.899 Other long term (current) drug therapy; Z87.891 Personal history of nicotine dependence; Y92.89 Other specified places as the place of occurrence of the external cause; Z87.440 Personal history of urinary (tract) infections; Z68.24 Body mass index [BMI] 24.0-24.9, adult

== ENCOUNTER 2017-09-07 07:38 | Emergency (ER) | payer OTHER ==
[~2017-09-07] VITALS: Ht 172.7 cm; Wt 70.3 kg
[~2017-09-07 07:38] MED LIST changes: +AVPAK AZITHROM250 M1 PO; +BUPROPION HCL150 M1 PO; +IRON18 MG PO; +VITAMIN D5000 UNIT PO
[2017-09-07 08:53] LABS: BASO % 0.7 % (0.0-1.0); EOS % 0.5 % (1.0-4.0); HEMATOCRIT 34.2 % (37.0-47.0); HEMOGLOBIN 11.1 g/dl (12.0-16.0); LYMPH # 0.6 10*3/uL (1.3-4.4); LYMPH % 10.8 % (27.0-41.0); MEAN CELL VOLUME 104.6 fl (81.0-99.0); MEAN CORPUSCULAR HGB 33.9 pg (27.0-31.0); MEAN CORPUSCULAR HGB CONC 32.5 g/dl (33.0-37.0); MEAN PLATELET VOLUME 9.5 fl (9.6-12.3); MONO # 0.3 10*3/uL (0.1-1.0); MONO % 4.7 % (3.0-9.0); NEUT # 4.9 10*3/uL (2.3-7.9); PLATELET COUNT AUTOMATED 189 10*3/uL (130-400); RED BLOOD COUNT 3.27 10*6/uL (4.10-5.10); RED CELL DISTRI WIDTH 14.8 % (0-14.5); WHITE BLOOD COUNT 5.9 10*3/uL (4.8-10.8)
[2017-09-07 09:12] LABS: ALBUMIN 1.9 gm/dl (3.1-4.5); ALKALINE PHOSPHATASE 138 U/L (45-117); BUN 12 mg/dl (7-24); CHLORIDE 109 mmol/L (98-107); CREATININE 0.98 mg/dL (0.55-1.02); LIPASE 37 U/L (73-393); POTASSIUM 4.2 mmol/L (3.5-5.1); SGOT/AST 53 IU/L (3-35); SGPT/ALT 27 U/L (12-78); SODIUM 139 mmol/L (136-145); TOTAL PROTEIN 5.4 gm/dL (6.4-8.2)
[2017-09-07 12:50] LABS: BILIRUBIN NEGATIVE (NEGATIVE); BLOOD NEGATIVE (NEGATIVE); CLARITY SL CLOUDY (CLEAR); COLOR YELLOW (YELLOW); GLUCOSE NEGATIVE (NEGATIVE); KETONE NEGATIVE (NEGATIVE); LEUKO ESTERASE 2+ (NEGATIVE); NITRITE NEGATIVE (NEGATIVE); PH 5.5 (5.0-9.0); UROBILINOGEN 0.2 E.U./dl (0.2-1.0)
[2017-09-07 13:07] LABS: WBC 21-30 wbc/hpf (0-5)
[2017-09-07 13:08] LABS: BACTERIA 2+; CALCIUM OXALATE CRYSTALS 1+
== END 2017-09-07 16:14 | disposition short-term general hospital (02) ==
LOC: ED 07:38
PROVIDERS: Emergency Medicine
DX: K56.699 Other intestinal obstruction unspecified as to partial versus complete obstruction (principal); K21.9 Gastro-esophageal reflux disease without esophagitis; F17.200 Nicotine dependence, unspecified, uncomplicated; Z88.6 Allergy status to analgesic agent; Z88.1 Allergy status to other antibiotic agents; Z88.2 Allergy status to sulfonamides; Z79.899 Other long term (current) drug therapy; Z98.84 Bariatric surgery status; Z90.710 Acquired absence of both cervix and uterus

== ENCOUNTER 2017-12-13 06:22 | Emergency (ER) | payer OTHER ==
[~2017-12-13] VITALS: Ht 170.1 cm; Wt 63.5 kg
[2017-12-13 06:53] LABS: HEMATOCRIT 33.1 % (37.0-47.0); HEMOGLOBIN 10.5 g/dl (12.0-16.0); MEAN CELL VOLUME 108.2 fl (81.0-99.0); MEAN CORPUSCULAR HGB 34.3 pg (27.0-31.0); MEAN CORPUSCULAR HGB CONC 31.7 g/dl (33.0-37.0); MEAN PLATELET VOLUME 9.7 fl (9.6-12.3); PLATELET COUNT AUTOMATED 265 10*3/uL (130-400); RED BLOOD COUNT 3.06 10*6/uL (4.10-5.10); RED CELL DISTRI WIDTH 14.6 % (0-14.5); WHITE BLOOD COUNT 4.6 10*3/uL (4.8-10.8)
[2017-12-13 07:08] LABS: ALBUMIN 1.6 gm/dl (3.1-4.5); ALKALINE PHOSPHATASE 163 U/L (45-117); BUN 5 mg/dl (7-24); CHLORIDE 108 mmol/L (98-107); CREATININE 0.74 mg/dL (0.55-1.02); POTASSIUM 3.2 mmol/L (3.5-5.1); SGOT/AST 26 IU/L (3-35); SGPT/ALT 17 U/L (12-78); SODIUM 142 mmol/L (136-145); TOTAL PROTEIN 4.9 gm/dL (6.4-8.2)
[2017-12-13 07:18] LABS: PLATELET SUFFICIENCY NORMAL (NORMAL); TOTAL CELLS COUNTED 100 #CELLS
[2017-12-13] MEDS ORDERED: CLOBETASOL EMOL15 GM T (08:14)
[2017-12-13] MEDS ORDERED: MEDROL DOSEPAK4 MG PO (08:14)
== END 2017-12-13 08:25 | disposition home or self-care (01) ==
LOC: ED 06:22
PROVIDERS: Emergency Medicine Emergency Medical Services
DX: L30.8 Other specified dermatitis (principal); K21.9 Gastro-esophageal reflux disease without esophagitis; F17.200 Nicotine dependence, unspecified, uncomplicated; Z90.710 Acquired absence of both cervix and uterus; Z98.890 Other specified postprocedural states; Z98.84 Bariatric surgery status; Z79.899 Other long term (current) drug therapy; Z88.1 Allergy status to other antibiotic agents; Z88.5 Allergy status to narcotic agent; Z88.8 Allergy status to other drugs, medicaments and biological substances

== ENCOUNTER 2018-01-21 23:37 | Emergency (ER) | payer OTHER ==
[~2018-01-21] VITALS: Ht 172.7 cm; Wt 65.3 kg
[~2018-01-21 23:37] MED LIST changes: +CLOBETASOL EMOL15 GM T; +MEDROL DOSEPAK4 MG PO; +PREDNISONE20 M1 PO; +VENLAFAXINE H37.5 M3 PO
[2018-01-22 00:22] LABS: BILIRUBIN NEGATIVE (NEGATIVE); BLOOD NEGATIVE (NEGATIVE); CLARITY CLEAR (CLEAR); COLOR YELLOW (YELLOW); GLUCOSE NEGATIVE (NEGATIVE); KETONE TRACE (NEGATIVE); LEUKO ESTERASE 1+ (NEGATIVE); NITRITE NEGATIVE (NEGATIVE); SPECIFIC GRAVITY 1.025 (1.005-1.030); UROBILINOGEN 0.2 E.U./dl (0.2-1.0)
[2018-01-22 00:31] LABS: HEMATOCRIT 30.7 % (37.0-47.0); HEMOGLOBIN 9.7 g/dl (12.0-16.0); MEAN CORPUSCULAR HGB 35.4 pg (27.0-31.0); MEAN CORPUSCULAR HGB CONC 31.6 g/dl (33.0-37.0); MEAN PLATELET VOLUME 9.4 fl (9.6-12.3); PLATELET COUNT AUTOMATED 402 10*3/uL (130-400); RED BLOOD COUNT 2.74 10*6/uL (4.10-5.10); RED CELL DISTRI WIDTH 16.6 % (0-14.5); WHITE BLOOD COUNT 3.8 10*3/uL (4.8-10.8)
[2018-01-22 00:42] LABS: EPITHELIAL CELLS 35-40
[2018-01-22 00:51] LABS: ALBUMIN 1.6 gm/dl (3.1-4.5); ALKALINE PHOSPHATASE 180 U/L (45-117); BUN 5 mg/dl (7-24); CHLORIDE 113 mmol/L (98-107); CREATININE 0.71 mg/dL (0.55-1.02); LIPASE 30 U/L (73-393); POTASSIUM 4.3 mmol/L (3.5-5.1); SGOT/AST 25 IU/L (3-35); SGPT/ALT 20 U/L (12-78); SODIUM 144 mmol/L (136-145); TOTAL PROTEIN 5.4 gm/dL (6.4-8.2)
[2018-01-22 00:55] LABS: TROPONIN I < 0.015 ng/ml (<0.045)
[2018-01-22 00:58] LABS: BASOPHILS 1 % (0-1); PLATELET SUFFICIENCY NORMAL (NORMAL); TOTAL CELLS COUNTED 100 #CELLS
== END 2018-01-22 03:52 | disposition short-term general hospital (02) ==
LOC: ED 23:37
PROVIDERS: Emergency Medicine Emergency Medical Services
DX: K56.690 Other partial intestinal obstruction (principal); K21.9 Gastro-esophageal reflux disease without esophagitis; F17.200 Nicotine dependence, unspecified, uncomplicated; Z90.710 Acquired absence of both cervix and uterus; Z98.84 Bariatric surgery status; Z79.899 Other long term (current) drug therapy; Z88.1 Allergy status to other antibiotic agents; Z88.5 Allergy status to narcotic agent; Z88.8 Allergy status to other drugs, medicaments and biological substances

== ENCOUNTER → 2018-03-17 | Outpatient (CLI) | payer OTHER ==
[~2018-03-17] MED LIST changes: +ADVAIR 250/501 EA INH; +Accuneb 0.1.25 MG/3 INH; +CEFTRIAXON2 GM/50 ML IV; +FUROSEMIDE40 MG PO; +NYSTATIN CREAM15 GM T; +POTASSIUM CHLO20 ME4 PO; +ULTRAM50 MG PO; +VENTOLIN,PR2 MG/5 ML PO; +ZOFRAN ODT4 MG SL; +Zofran4 MG SL
== END | disposition home or self-care (01) ==
LOC: CP 10:11
DX: F17.200 Nicotine dependence, unspecified, uncomplicated (principal)

== ENCOUNTER 2018-03-28 18:32 | Inpatient (IN) | payer OTHER ==
[~2018-03-28] VITALS: Ht 172.7 cm; Wt 76.7 kg
--- NOTE | ~2018-03-28 | PR ---
[place], [place] PROGRESS NOTE NAME: ILENE WALKER UNIT #: [id number] ROOM: 522 DOCTOR: ANA DOW MD,CARLOS BIRTHDATE: [birth year] DOS: 04/03/2018 SUBJECTIVE: She has been doing very well at this time, started on IV Rocephin for continuation of the management for acute pneumonia. The coughing has been improving. No symptoms of shortness of breath or chest pain at rest. OBJECTIVE: VITAL SIGNS: Normal temperature this morning, highest temperature 99.4 degree Fahrenheit, respiratory rate 20, heart rate of 80, blood pressure 116/66. Pulse ox saturation on 3 liters nasal cannula is 95% saturation. HEENT: Examination shows head was atraumatic. Eyes nonicterus. NECK: Supple. CARDIOVASCULAR: S1, S2 audible. LUNGS: Crackles noted in the left mid and lower portion of the lung. The right lung was clear. There was no wheezing. ABDOMEN: Soft, nontender. Bowel sounds are present. EXTREMITIES: Without acute edema. IMPRESSION: 1. Gram-negative pneumonia with Escherichia coli, currently treated with the antibiotics and IV Rocephin 2 g daily. 2. The patient with over debility, still remains persistent. 3. Hyperkalemia still noted. PLAN OF MANAGEMENT: Additional 40 mEq potassium will be given orally today in addition to 20 mEq already taken by the patient. Repeat BMP in the morning. The discharge planning for the patient is to be started by the Social Service tomorrow with PICC line placement for the patient and continuation of intravenous antibiotic outpatient for additional 7 days. CARLOS PEREZ MD CM:PNTRANS [id number] CARLOS DOW MD 04/03/18 1259 interface
--- NOTE | ~2018-03-28 | PR ---
[place], [place] PROGRESS NOTE NAME: ILENE WALKER UNIT #: [id number] ROOM: 522 DOCTOR: KENNEDI GLASER MD BIRTHDATE: [birth year] DOS: 03/31/2018 SUBJECTIVE: The patient states that she feels better. Still has a sore throat, but her cough is improving. She did undergo bronchoscopy and the pathology is pending. OBJECTIVE: VITAL SIGNS: Blood pressure is 111/68, pulse of 84, respirations 20, temperature 97.8. LUNGS: Diminished breath sounds. HEART: ____. ABDOMEN: Obese. EXTREMITIES: With decreased edema, rashes clearing on the extremities as well as in the buttock and the abdominal wall. Less drainage from the fistula. LABORATORY DATA: SGOT, SGPT is improving to ____ this morning, potassium is normal. Calcium is up to 7.1. White blood cell count is 8.1, hemoglobin 8.4, hematocrit 25.3, platelets 146. Urine culture shows heavy gram-negative bacteria and heavy yeast, which is E. coli, resistant to Floxin. ASSESSMENT AND PLAN: The patient who presents with: 1. Cough and shortness of breath with the possibility of hypersensitivity pneumonitis. Awaiting study of the bronchial washings. Discussed with Dr. Del Rosario. 2. Enterocutaneous fistula. Awaiting repair by [facility]. 3. Abnormal LFTs of unknown etiology. They are definitely improving. 4. Hypoproteinemia and hypokalemia and hypocalcemia. There is definite improvement in all these with the changes in her diet. Leg swelling has also improved. 5. Urinary tract infection with Escherichia coli, resistant to Floxin. We will continue Zosyn. We will discontinue Levaquin. Add ____. KENNEDI GLASER MD CM:PNTRANS [id number] KENNEDI GLASER MD 03/31/18 1614 interface
--- NOTE | ~2018-03-28 | PR ---
[place], [place] PROGRESS NOTE NAME: SALMA WALKER UNIT #: [id number] ROOM: 522 DOCTOR: SHAYNE SALMA BIRTHDATE: [birth year] DOS: 03/31/2018 SUBJECTIVE: The patient seen and evaluated today. She is status post bronchoscopy. She admits to shortness of breath and cough. She also admits to hoarseness. She states that she is otherwise feeling okay. She denies any fevers, chills, lightheadedness, chest pain, nausea, vomiting, diarrhea or lower extremity edema. She denies any hemoptysis, hematemesis, melena or hematochezia at this time. OBJECTIVE: VITAL SIGNS: Temperature 98.2, heart rate 86, respirations 18, blood pressure 106/73, pulse ox is 92% on 2 liters nasal cannula. She is satting 87% on room air. HEENT: Head is atraumatic. Eyes are nonicteric. NECK: Supple. CARDIOVASCULAR: S1, S2 audible. LUNGS: The patient continues to have diffuse wheezing. This is slightly improved from yesterday. No crackles noted. ABDOMEN: Soft, nontender, nondistended with bowel sounds present. EXTREMITIES: No acute edema. DERMATOLOGICAL: Visible skin, no lesions or rashes. LABORATORY DATA: White blood cells 8.1, hemoglobin 8.4, hematocrit 25.3, platelet count 146,000. CMP: Sodium 138, potassium 3.5, chloride 107, carbon dioxide 22, BUN 5, creatinine 0.69. AST 152, ALT 140, alkaline phosphatase 216. Albumin is 1.2 today. Hepatitis panel is negative. Cell count from the bronchial washings is neutrophil predominant consistent with an infectious process. Gram stain from the first bronchial washing specimen shows many white blood cells, rare gram-positive cocci in pairs, rare gram-positive bacilli. Culture specimen: 1. Preliminary results, early gram-negative bacilli. 2. Results of the urine culture show heavy Gram-negative bacteria and heavy yeast. 3. Blood culture showed no bacterial growth. IMPRESSION: 1. Interstitial infiltration related to acute pneumonia, gram-negative infection, currently treated with IV Zosyn. 2. Cough, mostly related to current active pneumonia. PLAN OF TREATMENT: Continue IV Zosyn. Levaquin was used previously and has been stopped. Monitor culture. Antibiotics will be adjusted according to culture results. Other supportive care to be continued. Oxygen supplementation as needed and bronchodilators. Additional treatment changes will be based on the progression of the illness. Salma Rodriguez DO [place], [place] PROGRESS NOTE NAME: SALMA WALKER UNIT #: [id number] ROOM: 522 DOCTOR: SALMA RODRIGUEZ DO BIRTHDATE: [birth year] CARLOS PEREZ MD CM:PNTRANS [phone] SALMA RODRIGUEZ DO 04/01/18 0304 interface
--- NOTE | ~2018-03-28 | PR ---
[place], [place] PROGRESS NOTE NAME: [facility]ENE [facility]ALKER [id number] UNIT #: [id number] ROOM: 522 DOCTOR: ANA DOW MDCARLOS BIRTHDATE: [birth year] DOS: 04/01/2018 PULMONARY PROGRESS NOTE SUBJECTIVE: The patient was independently seen and examined with offv-ri-cvql encounter, history was confirmed. Physical exam was performed. All the labs were reviewed. The patient change in medical management if necessary was ordered with the patient personally for today's assessment. The note done by the medical affairs manager was approved as well. The patient noted comfortable at this time without any acute distress. She has been noted symptoms of chest pain and hemoptysis. Coughing has been improving, resolving since bronchoscopy. Shortness breath was also improving. There were no symptoms of chest pain or wheezing. The patient denies any edema or pain of the lower extremity. Denies symptoms of nausea or vomiting. Denies symptoms of abdominal pain. Denies symptoms of hematemesis, melena, or hematochezia. Remaining systems were reviewed. They were noted all negative. OBJECTIVE: VITAL SIGNS: The patient showed normal temperature, respiration 16, heart rate of 94, blood pressure 106/68-134/65. The pulse oxygen saturation on 2 liters 93% saturation. HEENT: Examination shows head was atraumatic. Eyes nonicterus. NECK: Supple. CARDIOVASCULAR: S1, S2 audible. LUNGS: Basilar crackles, no wheezing. ABDOMEN: Soft, nontender, bowel sounds present. EXTREMITIES: Without any acute edema. LABORATORY DATA: Culture of the bronchial washing, the patient was noted with light growth of gram-negative bacilli, which are noted sensitive to cephalosporins and other antibiotics including IV Zosyn. CBC noted within normal WBC count, hemoglobin 8.5, hematocrit 25.9, platelet count 141,000. BMP this morning, normal BUN and creatinine. Anti-Dominga-1 antibody negative. Chest x-ray, which was ordered this morning showed basilar area of infiltration noted new finding as compared with the previous chest x-ray. IMPRESSION: 1. Acute pneumonia, the patient was noted with Escherichia coli at this time with the clinical improvement in the pneumonia noted, but the chest x-ray was noted adverse finding today. Possibility of some fluid overload. The patient cannot be completely excluded. The patient with localized edema of the lower part of the lungs. 2. Anemia of chronic disease. PLAN OF MANAGEMENT: Repeat a chest x-ray in the morning, patient after diuresis, which will be ordered in the form of Lasix to reassess. The patient's antibiotic was discontinue Zosyn and started on Ceftin high dose of 500 mg p.o. b.i.d. The infiltration patient remains persistent. Certainly, the antibiotic might need to be switched again intravenously. Otherwise, monitor respiratory [place], [place] PROGRESS NOTE NAME: ILENE WALKER UNIT #: [id number] ROOM: 522 DOCTOR: ANA DOW MD,CARLOS BIRTHDATE: [birth year] status. At this time, she remains afebrile. She does have a leukocytosis. Usual care, plan of therapy and care would be continues in progress. Supportive care therapy, plan of management and care plan. CARLOS PEREZ MD CM:PNTRANS [phone] CARLOS DOW MD 04/01/181855 interface
--- NOTE | ~2018-03-28 | PR ---
[place], [place] PROGRESS NOTE NAME: ILENE WALKER UNIT #: [id number] ROOM: 522 DOCTOR: ANA DOW MD,CARLOS BIRTHDATE: [birth year] DOS: 04/04/2018 SUBJECTIVE: The patient noted comfortable at this time. Mild cough was noted without any sputum expectoration. Denies symptoms of chest pain or any hemoptysis. The workup for the interstitial lung disease also became available noted with mild elevation of IgE level for the patient with elevation of serum aldolase. The workup for the vasculitis for the patient and IgG for the patient was noted as normal. OBJECTIVE: VITAL SIGNS: Normal temperature, respiratory rate 18, heart rate 72, blood pressure 120/75 to 112/70. Pulse ox saturation 5 liters nasal cannula 100% saturation at rest. HEENT: Examination shows head was atraumatic. Eyes nonicterus. NECK: Supple. CARDIOVASCULAR: S1, S2 audible. LUNGS: Noted without any wheezing. Mild crackles in the left side of the lung. ABDOMEN: Soft and nontender. EXTREMITIES: Without acute edema. LABORATORY DATA: BMP was noted potassium 3.3, otherwise normal. Antinuclear antibodies were negative. Aldolase was moderately elevated at 32.8. IgE was noted as 628. Acid-fast bacilli smears from the bronchial washing noted as negative smears. Pending culture results. IMPRESSION: Persistent mild hypokalemia with use of the diuretic, which was ordered at this time. Baseline supplement potassium 20 mEq was also noted previously, might require high amount of supplementation. She was given 40 mEq of potassium today orally. Antibiotic will be arranged for this patient as a 2 g Rocephin IV daily for 7 days and outpatient followup for the patient will be scheduled. In the meantime, continue other supportive therapy, plan of management. CARLOS PEREZ MD CM:PNTRANS [phone] CARLOS DOW MD 04/14/18 0853 interface
--- NOTE | ~2018-03-28 | CON ---
[place], [place] REPORT OF CONSULTATION NAME: ILENE WALKER UNIT #: [id number] ROOM: 522 DOCTOR: JENIFFER GENAO MD BIRTHDATE: [birth year] DOS: 03/30/2018 GASTRO ENDOSCOPIC REPORT HISTORY OF PRESENT ILLNESS: This is a 52-year-old patient with complex GI history, multi-abdominal surgeries, abdominal pain, shortness of breath, bronchitis, concern. Chest x-ray with possible interstitial infiltrate or pneumonia, enterocutaneous fistula of the bowel, history of complex bowel surgeries, mesh and removal of the mesh because of complications enterocutaneous fistulization all have been recognized. Her white blood cell was 5.9, H and H of 9 and 28, macrocytic indices at the time of admission with comprehensive metabolic panel, electrolyte elevated creatinine at 1.3. Potassium and electrolytes have been re-corrected. Lactic acid baseline was 2.[address] scan of the chest was done on her, bilateral upper lobe prominent ground-glass opacities, possible infiltrate pneumonia. Platelet function test was 100, normal. PAST MEDICAL HISTORY: Associated with bronchitis, colorectal carcinoma, partial colectomy , abdominal herniations, Enterocutaneous fistulization, status post mesh and failure and removal, abdominal hernia repair. PAST SURGICAL HISTORY: Partial colectomy, mesh removal and bariatric surgery, repair of abdominal hernia. SOCIAL HISTORY: Two pack smoker, has stopped, old history of alcohol. FAMILY HISTORY: Noncontributory. ALLERGIES: CODEINE, ERYTHROMYCIN, SULFA DRUGS, SURGICAL Tapes, PAPER ONES, PAPER BRAND. REVIEW OF SYSTEMS: HEENT: Denies double vision, blurred vision. RESPIRATORY: Admits to shortness of breath. CARDIOVASCULAR: Denies chest pain. DIGESTIVE SYSTEM: No hematemesis, no hematochezia; however, history of bariatric surgery, history of enterocutaneous fistula, who is on the schedule with [facility] for repair. PHYSICAL EXAMINATION: VITAL SIGNS: Relatively frail patient. HEENT: Head normocephalic, nontraumatic. Mouth and buccal mucosa benign, pale. There is aphthae ulcer in the right angle of the lip. NECK: Supple, no thyromegaly, no cervical lymphadenopathy. CHEST: Symmetric anatomy rhonchi through both lungs anteroposteriorly along with the decreased air entry, along with the wheezes diffusely. HEART: Normal sinus rhythm, no gallop, no murmur. ABDOMEN: Globular herniation on the surface can be noticed. There is a fistula formation in the left lower quadrant. Left upper, impression, left lower quadrant on the dressing. Bowel sounds present. No hepato-organomegaly can be [place], [place] REPORT OF CONSULTATION NAME: ILENE WALKER UNIT #: [id number] ROOM: 522 DOCTOR: JENIFFER GENAO MD BIRTHDATE: [birth year] elicited through this. EXTREMITIES: Stasis dermatitis still 2+ edema scaling of the skin. All has been noticed. NEUROLOGIC: Fully alert, oriented to time and place, person. Difficulty was with the speech with a raspy voice. Suspected pharyngitis. IMPRESSION: Shortness of breath, bronchitis, pneumonia, enterocutaneous fistula, colorectal carcinoma, status post partial colectomy, status post multiple abdominal hernia repair with mesh rejection and removal and all has been noticed. PLAN AND DISCUSSION: The patient on the schedule for enterocutaneous fistula repair in the [facility], already on the schedule and she is planning to be assessed and addressed on her schedule in the next couple of weeks. Therefore, we are withholding further GI investigation here at the present time, we are addressing with antibiotic for UTI, heavy gram-negative bacilli and anemia of H and H of 8.5 and 25.6 is noticed. We are keeping her on PPI bronchoscopy today, work in progress. OTHER ADJUNCTIVE DIAGNOSES: As has been already dictated in past medical and surgical history. Thank you very much indeed. JENIFFER GENAO MD CM:CONSTR:REPORT OF CONSULTATION 1242 03/30/18 0411 interface
--- NOTE | ~2018-03-28 | PR ---
[place], [place] PROGRESS NOTE NAME: ILENE WALKER UNIT #: [id number] ROOM: 522 DOCTOR: CARLOS MOLINA MD BIRTHDATE: [birth year] DOS: 03/31/2018 PULMONARY ADDENDUM NOTE SUBJECTIVE: The patient independently seen and examined in gsey-yn-efvs encounter. History was confirmed. Physical examination performed. The labs were reviewed. Assessment and management note were personally completed. She has a bronchoscopy done yesterday. BAL specimen was obtained from the left upper lobe as well. Bronchial washing sent for all the cultures. The patient was noted with reduction of the cough. The patient has been noted complete resolution. Denies symptoms of chest pain. Shortness breath was still reported. She denies any symptoms of abdominal pain. No chest pain. Denies symptoms of nausea, vomiting or any extremities pain or skin rashes. Remaining systems were reviewed. They were noted all negative. PHYSICAL EXAMINATION: VITAL SIGNS: For the patient which are recorded shows a normal temperature, respiratory rate 20, heart rate 84, blood pressure 111/68 to 112/67. The pulse ox saturation on 3 liter nasal cannula 94%-96% saturation recorded. HEENT: Examination shows head was atraumatic. Eyes nonicterus. NECK: Supple. CARDIOVASCULAR: S1, S2 is audible. LUNGS: Bowel sounds present. No tenderness. ABDOMEN: Mildly obese. VISIBLE SKIN: No lesions or rashes. CENTRAL NERVOUS SYSTEM: Cranial nerves 2-12 intact. EXTREMITIES: Without any acute edema. No clubbing or cyanosis. MUSCULOSKELETAL: No gross deformities. LABORATORY DATA: CMP this morning noted, AST 52, ALT 140, alkaline 216. Left upper lobe BAL was noted no bacterial growth. The culture of one of the left upper lobe specimens noted with finding of culture of light growth of gram-negative bacilli, pending identification and sensitivity. Gram stain for the patient, moderate white blood cells, no microorganism noted one of the cultures and the other one, many white blood cells, rare gram-positive cocci in pairs, rare gram-positive bacilli. BAL differential of the cell count, the patient was noted with predominance of lymphocytes and neutrophils 76%, highly suggestive of acute inflammatory process. Fungal stain noted as negative with pending culture results. Acid-fast bacillus smear and cultures were pending. IMPRESSION: 1. The patient who has been currently noted interstitial infiltration related to acute pneumonia, gram-negative infection, currently treated with IV Zosyn. The Levaquin was also used previously, which has been discontinued. 2. The patient with a cough is still noted mostly related to current acute pneumonia with other debility. PLAN OF TREATMENT: Plan of therapy, continuation of the IV Zosyn. Monitor culture results for the changes. Antibiotics to be done as needed afterwards. [place], [place] PROGRESS NOTE NAME: ILENE WALKER UNIT #: [id number] ROOM: 522 DOCTOR: ANA DOW MD,CARLOS BIRTHDATE: [birth year] Other supportive plan of management and progress will be continued. Usual care, other therapy, plan of management and treatment. Additional treatment changes will be made based on progression of the illness. CARLOS PEREZ MD CM:SOLOMON [phone] CARLOS DOW MD 03/31/18 1258 interface
--- NOTE | ~2018-03-28 | PR ---
[place], [place] PROGRESS NOTE NAME: ILENE WALKER UNIT #: [id number] ROOM: 522 DOCTOR: DORIE STANLEY MD BIRTHDATE: [birth year] DOS: 04/01/2018 SUBJECTIVE: The patient says she is improving. OBJECTIVE: VITAL SIGNS: Blood pressure 108/65, heart rate 90 beats per minute, breathing 20 times per minute, temperature 98.5 degrees Fahrenheit. GENERAL APPEARANCE: The patient is alert and oriented x 3, generalized weakness, in no visible distress. HEENT AND NECK: Exam within normal limits. CARDIOVASCULAR SYSTEM: Heart rate is regular in rate and rhythm. S1 and S2 normally audible. LUNGS: Clear to auscultation. ABDOMEN: Soft, nontender. No obvious organomegaly. Bowel sounds are present. EXTREMITIES: Without significant cyanosis or edema. IMPRESSION: 1. The patient with bilateral pneumonic infiltrates with acute over chronic respiratory failure, treated with antibiotics. 2. Severe protein-calorie malnutrition. The patient working with dietary. 3. The patient with colonic fistula, reevaluated by Dr. Willis. DORIE STANLEY MD CM:PNTRANS [id number] DORIE STANLEY MD 04/02/18 0330 interface
--- NOTE | ~2018-03-28 | WRIGHTHP ---
[place], [place] PATIENT HISTORY AND PHYSICAL EXAM NAME: [id number] UNIT #: [id number] ROOM: 522 DOCTOR: KENNEDI GLASER MD BIRTHDATE: [birth year] DOS: 03/28/2018 HISTORY OF PRESENT ILLNESS: The patient is 52 years old. The patient is not known to me, patient of Dr. Benitez. She was admitted. She comes in with complaints of cough and sputum production. She has had a cough, which is productive of scant amounts of sputum, most of the time, she is unable to cough up any mucus. She denies having any chest pains or palpitations, does not have any fever or chills. She has chronic leakage of stool from her fistula on to her abdominal wall and chronic irritation of the skin of both her legs, buttock and the abdominal wall. She denies having any nausea and emesis, but does not eat right. PAST MEDICAL HISTORY: Significant for history of gastric bypass surgery in 1999, history of hernia repair with mesh. The mesh was later removed because of complications resulting in a colonic fistula, history of colorectal CA, protein-calorie malnutrition, angular cheilosis, history of alcohol usage, history of a renal abscess. MEDICATIONS: She is currently on are venlafaxine 112 mg daily, potassium 20 daily, omeprazole 40 daily, multivitamin 1 tablet daily. SOCIAL HISTORY: Smoker of about half to 1 pack of cigarettes a day. States that she is dry of alcohol. PHYSICAL EXAMINATION: VITAL SIGNS: Graphic trend shows a pressure of 142/70, pulse of 76, respirations 14, afebrile. LUNGS: Diminished breath sounds. HEART: Regular. ABDOMEN: Obese with a lot of stool leaking on her abdominal wall. EXTREMITIES: Swollen with excoriations bilaterally with a large area of redness in the buttock area as well as perirectal and perineal area. LABORATORY DATA: Shows a WBC count of 5.9, hemoglobin 9.2, hematocrit 28.0, platelets 222. Comprehensive glucose 94, BUN 8, creatinine 1.32, sodium 137, potassium 3.2, chloride 109, bicarbonate 17, calcium 6.8, protein 4.4, albumin 1.3, SGOT 672, SGPT is 212. ASSESSMENT AND PLAN: 1. The patient with extensive medical problems, comes in with complaints of cough and increasing shortness of breath. Chest x-ray done in the Emergency Room shows possibility of pneumonia, left upper lobe. A CT of the chest was done to further delineate which shows bilateral upper lobe ground glass opacities, which most likely is infectious versus vascular congestion. She is placed on IV antibiotics. Dr. Del Rosario has been consulted and the patient is also ordered IV diuretics and an echocardiogram. 2. Severe protein-calorie malnutrition with extremely poor albumin level which is causing the calcium levels to go down. Calcium will be treated with 1 amp of calcium gluconate. We will try to give her increased protein in her diet and also supplement her potassium. [place], [place] PATIENT HISTORY AND PHYSICAL EXAM NAME: ILENE WALKER UNIT #: [id number] ROOM: 522 DOCTOR: KENNEDI GLASER MD BIRTHDATE: [birth year] 3. Fistula, which is continuing to leak stool on her abdominal wall. A CT of the abdomen and pelvis will be ordered, especially with the abnormal LFTs. 4. Abnormal LFTs, asked Dr. Willis for an opinion. KENNEDI GLASER MD CM:HISPHYS:PATIENT HISTORY AND PHYSICAL EXAMINATION [id number] KENNEDI GLASER MD 03/29/18 0846 interface
--- NOTE | ~2018-03-28 | PR ---
[place], [place] PROGRESS NOTE NAME: SALMA WALKER UNIT #: [id number] ROOM: 522 DOCTOR: SHAYNE OTM WHITESALMA BIRTHDATE: [birth year] DOS: 04/01/2018 SUBJECTIVE: The patient is feeling a little bit better today. She states that she is less short of breath. She still admits to cough. She is not bringing up much sputum. Her voice remains hoarse. She denies any fevers, chills, lightheadedness, chest pain, abdominal pain, nausea, vomiting, hemoptysis, hematemesis or hematochezia. PHYSICAL EXAMINATION: VITAL SIGNS: Temperature is 98.3, heart rate is 88, respirations are 24, blood pressure is 116/69, pulse ox is 96% on room air. While the patient was resting this morning, her respirations were 16. She was satting 93% on 2 liters by nasal cannula. HEENT: Head is atraumatic. Eyes are nonicteric. NECK: Supple. CARDIOVASCULAR: S1, S2 is audible. LUNGS: Diffuse wheezing. No crackles. ABDOMEN: Soft, nontender, nondistended. Bowel sounds present. Visible skin. No lesions or rashes. CENTRAL NERVOUS SYSTEM: Cranial nerves 2-12 grossly intact. No focal deficit. EXTREMITIES: No acute edema. MUSCULOSKELETAL: No gross deformities. LABORATORY DATA: CBC today, white blood cells 10.1, hemoglobin 8.5, hematocrit 25.9, platelet count 141,000. BMP today, sodium 137, potassium 3.7, chloride 106, CO2 of 23, BUN 4, creatinine 0.57. Culture of the bronchial washings is growing E. coli sensitive to Zosyn. The culture is also sensitive to several p.o. medications including cephalosporins. Urine is also growing E. coli, which is sensitive to p.o. cephalosporins. Blood culture showed no bacterial growth. Chest x-ray obtained today is consistent with pneumonia. IMPRESSION: 1. Interstitial infiltration related to gram-negative pneumonia. 2. Cough. This is mostly related to her current active pneumonia. PLAN OF TREATMENT: IV Zosyn has been discontinued. Ceftin 500 mg b.i.d. has been started. The patient has been weaned off oxygen. Continue supportive management. No further adjustments to patient's treatment at this time. Salma Bella DO [place], [place] PROGRESS NOTE NAME: OSMAN WALKERGUS Regan UNIT #: [id number] ROOM: 2 DOCTOR: SALMA BELLA DO BIRTHDATE: [birth year] CARLOS PEREZ MD CM:SOLOMON [id number] SALMA BELLA DO 04/01/182115 interface
--- NOTE | ~2018-03-28 | PR ---
[place], [place] PROGRESS NOTE NAME: ILENE WALKER UNIT #: [id number] ROOM: 522 DOCTOR: DORIE STANLEY MD BIRTHDATE: [birth year] DOS: SUBJECTIVE: The patient with generalized weakness and failure to thrive, waiting for PICC line placement as ordered by Dr. Del Rosario for IV antibiotics at home. PHYSICAL EXAMINATION: VITAL SIGNS: Blood pressure 116/66, heart rate 80 beats per minute, breathing 20 times per minute, temperature afebrile. GENERAL APPEARANCE: The patient is alert and oriented x 3, generalized weakness, in no visible distress. HEENT AND NECK: Exam within normal limits. CARDIOVASCULAR SYSTEM: Heart rate is regular in rate and rhythm. S1 and S2 normally audible. LUNGS: Clear to auscultation. ABDOMEN: Soft, nontender. No obvious organomegaly. Bowel sounds are present. EXTREMITIES: Without significant cyanosis or edema. IMPRESSION: 1. Bilateral pneumonia and acute over chronic respiratory failure, being treated with antibiotics, Ramos and Dr. De lRosario getting a PICC line placed, so she can go home with antibiotics. 2. Severe protein calorie malnutrition, being followed by dietary and she is on nutritional supplements. 3. Chronic enterocutaneous fistula, being reevaluated by Dr. Willis. 4. Major depression, recurrent, mild, treated with venlafaxine. 5. Gastroesophageal reflux disease and esophagitis, she is being treated with omeprazole. DORIE STANLEY MD CM:PNTRANS [id number] DORIE STANLEY MD 04/03/18 2301 interface
--- NOTE | ~2018-03-28 | PR ---
[place], [place] PROGRESS NOTE NAME: ILENE WALKER UNIT #: [id number] ROOM: 522 DOCTOR: ANA DOW MD,CARLOS BIRTHDATE: [birth year] DOS: 04/02/2018 SUBJECTIVE: She was noted comfortable at this time with reduction in shortness of breath, coughing has been improving gradually. There were no symptoms of chest pain. The patient given diuretics yesterday with significant diuresis noted. Denies symptoms of nausea, vomiting, diarrhea, abdominal pain, generalized weakness and fatigued were slowly improving. Denies symptoms of abdominal pain or hemoptysis. MEDICATIONS: Reviewed. They were noted all negative. PHYSICAL EXAMINATION: VITAL SIGNS: Normal temperature, respiratory rate 20, heart rate 84, blood pressure 109/68. The pulse oxygen saturation noted on 2 liters 93% saturation. HEENT: Head was atraumatic. Eyes nonicterus. NECK: Supple. CARDIOVASCULAR: S1, S2 audible. LUNGS: Occasional crackles noted in the left lung. There was no wheezing. ABDOMEN: Soft, nontender. Bowel sounds present. EXTREMITIES: Without any acute edema. VISIBLE SKIN: No lesions or rashes. MUSCULOSKELETAL: Without deformities, lesions or redness or tenderness. CENTRAL NERVOUS SYSTEM: Cranial nerves 2-12 intact. LABORATORY DATA: BMP was noted with potassium 3.0, otherwise normal. The chest x-ray done this morning shows improvement of the pleural fluid with persistent infiltration, consolidation noted in the left lower lobe. IMPRESSION: 1. Acute pneumonia with Escherichia coli, currently treated with antibiotics. Resolution of the fluid overload and bilateral pleural fluid. 2. Hyperkalemia secondary to diuretics. PLAN OF MANAGEMENT: Addition of 28, potassium was ordered with the baseline use of port 20 mg, potassium. The repeat BMP in the morning. The Ceftin was discontinued. The patient started on intravenous antibiotic because of persistent consolidation and infiltration. Consideration for discharge, the patient tomorrow morning with PICC line insertion at home and intravenous antibiotic. The Rocephin started a 2 gram IV daily. Other supportive therapy, plan of management and care plan. Additional treatment changes will be done based on progression of the illness. [place], [place] PROGRESS NOTE NAME: ILENE WALKER UNIT #: [id number] ROOM: 522 DOCTOR: CARLOS MOLINA MD BIRTHDATE: [birth year] CARLOS PEREZ MD CM:PNTRANS [id number] CARLOS DOW MD 04/02/18 1936 interface
--- NOTE | ~2018-03-28 | WRIGHTHP ---
[place], [place] PATIENT HISTORY AND PHYSICAL EXAM NAME: ILENE WALKER UNIT #: [id number] ROOM: 522 DOCTOR: JENIFFER GENAO MD BIRTHDATE: [birth year] DOS: 03/28/2018 CHIEF COMPLAINT: A 52-year-old patient has presented with multiple problems, among which has been abdominal fistulization with complex history of bowel surgery. Large ventral herniation. PAST MEDICAL HISTORY: Colectomy for colonic carcinoma and the enterocutaneous fistulization, status post mesh repair and failure of the repair. PAST SURGICAL HISTORY: Colectomy as mentioned above. She has been able to eat here. No nausea, vomiting, no diarrhea has been reported. Her CBC, H and H 8 and 25. Plans is to be on [facility] follow up with her surgeon for enterocutaneous fistula repair and herniation of the entire abdomen. REVIEW OF SYSTEMS: RESPIRATORY: No shortness of breath, no chest pain. DIGESTIVE SYSTEM: No hematemesis, no hematochezia, no diarrhea, nausea, vomiting. PHYSICAL EXAMINATION: VITAL SIGNS: Stable. HEENT: Benign. NECK: Supple, no thyromegaly. CHEST: Symmetric anatomy, decreased air entry. HEART: Normal sinus rhythm, no gallop, no murmur. ABDOMEN: Herniation of numerous area also on the surface of the abdomen, bowel and fistulization was noticed. Bowel sounds present. EXTREMITIES: 1+ pedal edema. NEUROLOGIC: Alert, oriented to time, place, person. IMPRESSION: Enterocutaneous fistula. PLAN: Defer to surgical followup in [facility] as she has already preplanned. Thank you very much indeed. [place], [place] PATIENT HISTORY AND PHYSICAL EXAM NAME: ILENE WALKER UNIT #: [id number] ROOM: 522 DOCTOR: JENIFFER GENAO MD BIRTHDATE: [birth year] JENIFFER GENAO MD CM:HISPHYS:PATIENT HISTORY AND PHYSICAL EXAMINATION [id number] JENIFFER GENAO MD 04/13/18 0715 interface
--- NOTE | ~2018-03-28 | PR ---
[place], [place] PROGRESS NOTE NAME[id number] UNIT #: [id number] ROOM: 522 DOCTOR: ANA DOW MDCARLOS BIRTHDATE: [birth year] DOS: 03/30/2018 PULMONARY PROGRESS NOTE SUBJECTIVE: The patient was independently seen and examined for today's visit. The history was completed, physical exam performed, and labs reviewed. Assessment and management personally completed. Note done by the medical coding manager was approved as well. The patient was noted n.p.o. past midnight for bronchoscopy. She has not been noted symptoms of chest pain or hemoptysis. Shortness of breath was noted with [id number] nonproductive cough. There were no symptoms of chest pain. No edema or pain of the lower extremities. Denies symptoms of abdominal pain. Review of systems of the patient was completed, otherwise noted as negative. The abdominal pain seems to be better. The remaining systems were reviewed, they were noted all negative. OBJECTIVE: VITAL SIGNS: Which has been recorded showed normal temperature, respiratory rate 18, heart rate 87, blood pressure 107/63 to 132/65. The pulse oxygen saturation on room air was 97% saturation. HEENT: Head was atraumatic, eyes nonicterus. NECK: Supple. CARDIOVASCULAR: S1, S2 audible. LUNGS: The patient was noted without any wheeze or crackles. ABDOMEN: Soft, nontender. Moderate obesity. Bowel sounds present. EXTREMITIES: Without any acute edema. VISIBLE SKIN: No lesions or rashes. LABORATORY AND DIAGNOSTIC DATA: Blood culture in the lab for the patient noted no bacterial growth from 03/28/2018 at this time. CBC this morning, hemoglobin 8.5, WBC count normal, platelet count normal. Urine culture with heavy growth of gram-negative bacilli. CMP of the patient this morning, BUN 6, creatinine was normal, potassium 3.1. The patient had CT scan of the abdomen, which was done without contrast, ordered by Dr. Tasha Wong, for assessment of the abdominal pain. The radiology report was noted redemonstration of broad-based ventral protrusion containing multiple bowel loops, mild wall thickening involving several loops consistent with underlying enteritis suggested. C-reactive protein was elevated at 9.01. ESR was noted at 13. IMPRESSION: 1. The patient has been currently noted with abnormal infiltration, ground glass opacity involving the upper lungs predominantly and some segments of the lungs, currently n.p.o. for bronchoscopy. 2. Abdominal pain, enteritis, viral etiology and other etiology remains in consideration. 3. Chronic moderate obesity as well. PLAN OF MANAGEMENT: Proceed with bronchoscopy with BAL specimen as planned for [place], [place] PROGRESS NOTE NAME: ILENE WALKER UNIT #: [id number] ROOM: 522 DOCTOR: ANA DOW MD,CARLOS BIRTHDATE: [birth year] this patient today. Continuation of bronchodilators, oxygen supplementation, and other medical management, plan of care and therapies. Additional treatment changes will be made based on the available new data. No changes otherwise in treatment need to be done today. CARLOS PEREZ MD CM:SOLOMON [id number] CARLOS DOW MD 03/30/18 1147 interface
--- NOTE | ~2018-03-28 | CON ---
[place], [place] REPORT OF CONSULTATION [id number] UNIT #: [id number] ROOM: 522 DOCTOR: CARLOS MOLINA MD BIRTHDATE: [birth year] DOS: 03/29/2018 CONSULTATION REQUESTED BY: Dr. Tasha Wong. REASON FOR CONSULTATION: Abnormal CT scan of the chest and possible consideration for bronchoscopy. HISTORY OF PRESENT ILLNESS: A 52-year-old white female presented to the hospital. The patient has been noted with symptoms of increased shortness of breath ongoing for the past few days with increased coughing. The coughing has been noted with small amount of sputum expectoration at times. The symptoms were not associated with symptoms of chest pain. She does have some symptoms of wheezing. Denies symptoms of fever with that. She has been admitted to the hospital. The patient has been assessed in the hospital and underwent CT scan of the chest that was completed yesterday as well that has been noted with evidence of ground glass opacity with pulmonary infiltration. REVIEW OF SYSTEMS: CONSTITUTIONAL: Fatigue and tiredness noted. Denies symptoms of fever or chills. EYES: Denies burning, redness, or tenderness. EARS, NOSE, THROAT SYMPTOMS: Denies sore throat, hoarseness, otalgia, postnasal drainage, or epistaxis. CARDIOVASCULAR: No angina pain, edema, pain in lower extremity. GASTROINTESTINAL: Denies dysphagia, nausea, vomiting, diarrhea, abdominal pain, hematemesis, melena, has a chronic colonic fistula at the abdomen with some leakage of the stool reported. GENITOURINARY SYMPTOMS: No dysuria, suprapubic pain, hematuria. MUSCULOSKELETAL: Denies acute joint pain, redness, or tenderness. SKIN: Denies any abnormal lesions or rashes except localization of abdomen at the site of the abdominal fistula. CENTRAL NERVOUS SYSTEM: No dizziness, headache, diplopia, syncopal episodes. Remaining systems were reviewed. They were noted all negative. PAST MEDICAL HISTORY: 1. The patient known with history of past morbid obesity, bariatric surgery in 1999. 2. Abdominal hernia repaired with mesh. 3. Removal of the mesh for complication from the mesh. 4. Chronic colonic fistula of the skin. 5. Colorectal cancer. The patient treated with partial colectomy. 6. History of protein-calorie malnutrition. SOCIAL HISTORY: The patient lives at home. She has been noted history of tobacco use, about a pack of cigarettes per day, stated not smoking cigarettes for about a month. Denies history of illicit drug use has been noted and history of alcohol use as well. PAST SURGICAL HISTORY: [place], [place] REPORT OF CONSULTATION NAME: ILENE WALKER UNIT #: [id number] ROOM: 522 DOCTOR: CARLOS MOLINA MD BIRTHDATE: [birth year] 1. Colorectal surgery partial colectomy. 2. Bariatric surgery in 1999. 3. Repair of the abdominal hernia with the mesh and later removal of the mesh as well. FAMILY HISTORY: Noncontributory. PHYSICAL EXAMINATION: GENERAL: A 52-year-old female who has been currently noted comfortably sitting on the bed without any acute distress this morning of assessment. The patient's height was recorded by the nursing staff on the current admission with height of 5 feet 8 inches, weight 169 pounds, BMI 25.7. VITAL SIGNS: For the patient shows a normal temperature 99.4 degree Fahrenheit, respiratory rate 18-20, heart rate of 104-68, blood pressure 98/81-112/66. Pulse oxygen saturation on room air was 97% saturation at rest. HEENT: Head was atraumatic. Eyes nonicterus. NECK: Supple. CARDIOVASCULAR: S1, S2 audible. LUNGS: The patient was noted without any wheezing or crackles. Breaths are noted mildly decreased bilaterally. ABDOMEN: Soft, bowel sounds present. EXTREMITIES: No acute edema. MUSCULOSKELETAL: No deformity. VISIBLE SKIN: No lesions or rashes. CENTRAL NERVOUS SYSTEM: Cranial nerves 2-12 intact without focal deficit. LABORATORY DATA: CBC yesterday, WBC count normal, hemoglobin 9.2, hematocrit 28.0, platelet count normal. CMP yesterday on admission, BUN 8, creatinine 1.32. CO2 of 17. Calcium uncorrected calcium 6.8. AST 672, ALT 212, alkaline phosphatase of 231. The ionized calcium noted mildly decreased at 4.33. Lactic acid 2.5 initially at 1.5. BMP was done this morning, normal BUN and creatinine. Potassium is decreased at 3.1, calcium still noted low at 6.5 without correction with albumin. The PT/INR were noted 1.6, PTT 34 this morning. Chest x-ray 1-view was noted interstitial marking increase in the upper lungs. The CT scan of chest, which was done without contrast was reviewed, mediastinal structure was noted essentially unremarkable. The finding noted limited because of the lack of IV contrast. The patient noted large ground glass opacity, which at present predominantly in the upper lung and somewhat in the periphery as well with scattered areas of ground glass opacities is noted right middle lobe as well as the left lower and the right lower lobe as well. A small tiny left pleural fluid noted, change of COPD and emphysema were visible. IMPRESSION: 1. Currently, the patient admitted to the hospital with recurrent respiratory symptoms were noted with current ground glass opacity with a differential diagnosis. The patient will be considered as a collagen vascular diseases, cryptogenic organizing pneumonia, acute hypersensitivity pneumonitis with the patient and acute eosinophilic pneumonia. Certainly, the differentials of infection to be considered bacterial, viral infections, as well as a [place], [place] REPORT OF CONSULTATION NAME: ILENE WALKER UNIT #: [id number] ROOM: 522 DOCTOR: ABENA MOLINA MDM BIRTHDATE: [birth year] pneumocystis as well in the differential diagnosis. 2. History of colon cancer, past colectomy. 3. History of bariatric surgery, with significant weight loss. 4. Hypocalcemia, most likely secondary to bariatric surgery and poor absorption of the calcium in the bone. 5. Abnormal liver function test. Etiology is unclear for the patient related to the infection. Hepatic steatosis viral infection and others to be explored. PLAN OF TREATMENT: The patient will benefit from bronchoscopy BAL specimen and the cultures to be obtained in the upper lobe including cytology. Monitor respiratory status closely. Usual workup for interstitial lung disease, which is available in this hospital has been ordered. Nicotine abstinence was advised. Continue other supportive therapy, plan of management and care plan. Usual treatment with further additional treatment changes will be made based on the progression of the illness and available any additional data. The patient was independently seen and examined for this consultation. History was personally obtained from the patient. Physical examination performed. All the labs were reviewed. The assessment and management of the patient for this note for this consultation was personally made as well for today's visit. The note done by the medical scientific liaison was approved as well. Obtain an ultrasound of the abdomen and/or CT scan of the chest for further assessment of current abnormal LFTs. Order the respiratory viral panel as well. Any additional treatment changes necessary will be ordered accordingly. CARLOS PEREZ MD CM:CONSTR:REPORT OF CONSULTATION 1104 03/29/18 6451 interface
--- NOTE | ~2018-03-28 | PR ---
[place], [place] PROGRESS NOTE NAME: ILENE WALKER UNIT #: [id number] ROOM: 522 DOCTOR: DORIE STANLEY MD BIRTHDATE: [birth year] DOS: 04/02/2018 SUBJECTIVE: The patient is feeling quite weak, but overall better, waiting for PICC line placement ordered by Dr. Del Rosario. OBJECTIVE: VITAL SIGNS: Blood pressure 109/68, heart rate 84 beats per minute, breathing 20 times per minute, temperature 98.2 degrees Fahrenheit. GENERAL APPEARANCE: The patient is alert and oriented x 3, generalized weakness, in no visible distress. HEENT AND NECK: Exam within normal limits. CARDIOVASCULAR SYSTEM: Heart rate is regular in rate and rhythm. S1 and S2 normally audible. LUNGS: Clear to auscultation. ABDOMEN: Soft, nontender. No obvious organomegaly. Bowel sounds are present. EXTREMITIES: Without significant cyanosis or edema. IMPRESSION: 1. The patient with bilateral pneumonia and acute over chronic respiratory failure, being treated with antibiotics, DuoNebs and Dr. Del Rosario, the manager administrative services, is following. 2. Severe protein calorie malnutrition, being followed by dietary and nutritional supplements. 3. Chronic enterocutaneous fistula, being reevaluated by Dr. Willis. DORIE STANLEY MD CM:PNTRANS [phone] DORIE STANLEY MD 04/03/18 0006 interface
--- NOTE | ~2018-03-28 | PR ---
[place], [place] PROGRESS NOTE [id number] UN[facility] #: [id number] ROOM: 522 DOCTOR: SHAYNE SALMA BIRTHDATE: [birth year] DOS: 03/30/2018 SUBJECTIVE: The patient was seen and evaluated today prior to bronchoscopy. She complains of no acute events overnight. She continues to be short of breath with a nonproductive cough. She denies any lightheadedness, headaches, chills, chest pain, hemoptysis, hematemesis, nausea, vomiting, diarrhea, melena or hematochezia. OBJECTIVE: VITAL SIGNS: Temperature 97.6, heart rate 92, respirations 18, blood pressure 112/70, pulse ox 96% on 3 liters nasal cannula. HEENT: Head is atraumatic. Eyes are nonicteric. NECK: Supple. CARDIOVASCULAR: S1, S2 audible. LUNGS: The patient has diffuse wheezing. No crackles noted. ABDOMEN: Soft, nontender, nondistended. Bowel sounds present. EXTREMITIES: No acute edema. SKIN: Visible skin, no lesions or rashes. LABORATORY DATA: CBC today, white blood cells 7.3, hemoglobin 8.5, hematocrit 25.6, platelet count ____. CMP today, sodium 173, potassium 3.1, chloride 107, BUN 6, creatinine 1.02, AST 308, ALT 205, alkaline phosphatase 245. LFTs are decreased from yesterday with the exception of alkaline phosphatase. Albumin today is 1.3. Workup for connective tissue diseases is pending. Acute hepatitis panel is also pending. Blood cultures thus far show no bacterial growth. Urine culture shows greater than 100,000 colonies of heavy Gram-negative bacteria. Abdominal CT shows mild wall thickening involving several loops of bowel suggesting an underlying enteritis. There is no evidence of obstruction. IMPRESSION: 1. Ground glass opacity of the upper lungs, predominantly. 2. Enteritis. 3. Transaminitis. 4. Chronic moderate obesity. PLAN OF MANAGEMENT: The patient is for bronchoscopy today. Continue antibiotics, DuoNebs, oxygen supplementation and other p.r.n. medications. Changes in therapy will be decided once results of bronchoalveolar lavage are received. No change in treatment for today. Salma Rodriguez DO [place], [place] PROGRESS NOTE NAME: SALMA WALKER UNIT #: [id number] ROOM: [facility] DOCTOR: SALMA RODRIGUEZ DO BIRTHDATE: [birth year] CARLOS PEREZ MD CM:SOLOMON [phone] SALMA RODRIGUEZ DO 03/31/18 0420 interface
--- NOTE | ~2018-03-28 | PROC NOTE ---
[place], [place] PROCEDURE NOTE NAME: ILENE WALKER UNIT #: [id number] ROOM: 522 DOCTOR: ANA DOW MD,CARLOS BIRTHDATE: [birth year] DOS: 03/30/2018 BRONCHOSCOPY NOTE PREOPERATIVE DIAGNOSIS: The patient with ground glass opacity mainly in the upper lung. The bronchial washing taken as a BAL specimen from the left upper lobe. ANESTHESIA: Conscious sedation. COMPLICATIONS: None. PROCEDURE DESCRIPTION: Informed consent obtained with the patient. She was brought to the OR and placed in supine position. Conscious sedation administered by the Anesthesia Department. After achieving proper sedation, airway introduced into the mouth. Bronchoscope advanced to the airway into laryngeal area. Epiglottis and vocal cords were seen. The bronchoscope advanced to the vocal cords and tracheal lumen. Tracheal lumen was noted with a small amount of secretion, which was present in the tracheal lumen and bilateral endobronchial tree for the patient's right upper, right middle, right lower, left upper, lingular lower lobes. All the secretions suctioned out and cleared off with the help of normal saline wash. The BAL specimen was also obtained from the left upper lobe subsegment. The procedure was tolerated by the patient without any complication. Postoperative findings will be discussed with the patient once the patient recovers from the effects of acute sedation. CARLOS PEREZ MD CM:PROCNOTE:PROCEDURE NOTE 1113 1504 CRALOS DOW MD
--- NOTE | ~2018-03-28 | PR ---
[place], [place] PROGRESS NOTE NAME: ILENE WALKER UNIT #: [id number] ROOM: 522 DOCTOR: KENNEDI GLASER MD BIRTHDATE: [birth year] DOS: SUBJECTIVE: The patient is doing well without any complaints. OBJECTIVE: VITAL SIGNS: Graphic trend shows a pressure of 109/65, pulse of 79, respirations 19, temperature 98. LUNGS: Clear. HEART: Regular. ABDOMEN: Obese. EXTREMITIES: Without any edema. LABORATORY DATA: AFB smear is negative. BMP, glucose 75, BUN 3, creatinine 0.65, sodium 141, potassium 3.3, chloride 106, bicarbonate 72. Blood cultures, no bacterial growth. ASSESSMENT AND PLAN: 1. Enterocutaneous fistula, for surgery soon. 2. Escherichia coli in the sputum, on IV antibiotics. PICC line to be placed and the patient to go home on Rocephin. KENNEDI GLASER MD CM:PNTRANS [id number] KENNEDI GLASER MD 04/05/18 0243 interface
--- NOTE | ~2018-03-28 | CON ---
[place], [place] REPORT OF CONSULTATION [id number] UN[facility] #: [id number] ROOM: 522 DOCTOR: SALMA BELLA DO BIRTHDATE: [birth year] DOS: 03/29/[address] Tasha Wong. REASON FOR CONSULTATION: Bronchoscopy. HISTORY OF PRESENTING ILLNESS: This patient is a 52-year-old female. She presented to [facility] with complaints of cough that she states is mostly dry. Cough has been present for 3 days and is associated with shortness of breath and hoarse voice as well as a sore throat. She states her legs also have been more swollen than normal and started to seep. She also admits to chills. She does have history of seasonal allergies. REVIEW OF SYSTEMS: CONSTITUTIONAL SYMPTOMS: Denies fatigue or tiredness. Admits to chills. Denies fever. EYES: Denies burning, redness or tenderness. EARS, NOSE, THROAT: Admits to sore throat, hoarseness, and allergies. Denies pain in the ears. CARDIOVASCULAR: Denies chest pain or pain in the lower extremities. Admits to swelling in the legs. GASTROINTESTINAL: Denies dysphagia, nausea, vomiting, diarrhea, abdominal pain, hematemesis, melena or hematochezia. Admits to abdominal fistulas adherent to skin that are seeping. GENITOURINARY: No dysuria, suprapubic pain, or hematuria. MUSCULOSKELETAL: No acute pains in the joints. SKIN: Admits to seeping from lower extremity lesions and abdominal fistulas. CENTRAL NERVOUS SYSTEM: Denies dizziness, headache, diplopia or syncopal episodes. PAST MEDICAL HISTORY: Colon cancer, angular cheilosis, alcohol use, renal abscess, depression, GERD, and peripheral edema. SURGICAL HISTORY: Gastric bypass in 1999, a hernia with mesh and later mesh removal for abdominal fistula, colon resection with removal of a 7 cm tumor. SOCIAL HISTORY: Former smoker up to 2 packs per day. She started at age 22 and quit 1 month ago. Former use of alcohol. Denies drug use. FAMILY HISTORY: Hypertension, colon cancer, coronary artery disease in her mother, diabetes and asthma. MEDICATIONS: Effexor, triamcinolone, K-Dur 20 mEq daily, nystatin ointment, Levaquin, Robitussin, Lasix 60 mg IV daily, omeprazole, Zosyn, DuoNebs and other p.r.n. medications. ALLERGIES: AZITHROMYCIN, CODEINE, BACTRIM AND PAPER TAPE. PHYSICAL EXAMINATION: GENERAL: Alert, oriented, appears in mild distress due to respiratory symptoms. [place], [place] REPORT OF CONSULTATION NAME: SALMA WALKER UNIT #: [id number] ROOM: 522 DOCTOR: SALMA BELLA DO BIRTHDATE: [birth year] VITAL SIGNS: Temperature of 99.3, pulse of 80, respirations 18, blood pressure 103/60, pulse ox 96% on room air. HEENT: Head is atraumatic. Eyes nonicteric. NECK: Supple. CARDIOVASCULAR: S1, S2 audible. No murmurs noted. LUNGS: Breath sounds are diminished bilaterally with diffuse wheezing. No crackles or rhonchi. ABDOMEN: Soft, nontender, nondistended. Bowel sounds are present. Fistulas are present and covered with dressing. VISIBLE SKIN: Multiple linear erythematous holley on the lower extremities with clear seepage. CENTRAL NERVOUS SYSTEM: Cranial nerves 2-12 grossly intact. No gross focal deficit. MUSCULOSKELETAL: No acute deformities. LABORATORY DATA: CBC: White blood cells 5.9, hemoglobin 9.2, hematocrit 28, and platelet count 222. ESR 13. BMP: Sodium 140, potassium 3.1, BUN of 7, creatinine 0.93, albumin 1.3, AST 672, ALT 212, alkaline phosphatase 231, total bilirubin 0.7. Lactic acid at baseline was 2.5 on admission. RADIOLOGY IMAGING: CT abdomen shows large broad-based ventral protrusion containing multiple bowel loops and mild wall thickening involving several loops suggestive of an underlying enteritis with no evidence of obstruction. Chest CT shows bilateral upper lobe predominant ground glass opacities, small left pleural effusion. Chest x-ray shows possible pneumonia. IMPRESSION: 1. Ground glass opacities on chest CT. Possible etiologies include hypersensitivity lung disease, acute interstitial pneumonia, viral pneumonia, congestive heart failure, pneumocystis pneumonia, connective tissue disease, protein alveolar proteinosis, and cancer is not ruled out. Peripheral distribution suggests hypersensitivity. 2. Severe protein calorie malnutrition. 3. Abdominal fistula. 4. Transaminitis. 5. Hypokalemia. PLAN OF MANAGEMENT: The patient will have a bronchoscopy tomorrow to better evaluate the possible etiologies for the ground glass appearance noted on chest CT. Continue antibiotics and DuoNebs. Immunoglobulin subclasses have been ordered. The workup for acute connective tissue disease has also been ordered. Dr. Willis has been consulted for evaluation of the elevated LFTs. Hepatitis panel is currently pending. Her primary team is managing her protein-calorie malnutrition as well as her electrolyte abnormalities. Further recommendations based on bronchoscopy and analysis of bronchioalveolar lavage. Salma Bella DO [place], [place] REPORT OF CONSULTATION NAME: SALMA WALKER UNIT #: [id number] ROOM: 522 DOCTOR: SALMA BELLA DO BIRTHDATE: [birth year] CARLOS PEREZ MD CM:CONSTR:REPORT OF CONSULTATION 1458 03/30/18 0450 interface
--- NOTE | ~2018-03-28 | PR ---
[place], [place] PROGRESS NOTE NAME: ILENE WALKER UNIT #: [id number] ROOM: 522 DOCTOR: KENNEDI GLASER MD BIRTHDATE: [birth year] DOS: 03/30/2018 SUBJECTIVE: The patient has quite a lot of sore throat and hoarse voice, but otherwise is feeling better. Cough has subsided. She does not have any drainage today from her fistula. OBJECTIVE: VITAL SIGNS: Blood pressure is 127/66, pulse of 20, respirations 18, temperature 98.8. LUNGS: Clear. HEART: Regular. ABDOMEN: Obese with no drainage today. EXTREMITIES: Without any edema. SKIN: Seems to be less moist looking and more dry. LABORATORY DATA: C-reactive protein is 9.01. CT of the abdomen and pelvis shows large ventral hernia, loops of bowel in it with enteritis. Urine culture shows gram-negative bacteria, no identification is available. Comprehensive glucose 75, BUN 6, creatinine 1.02, sodium 137, potassium 3.1, chloride 107, bicarbonate 20. LFTs show some improvement in SGOT and SGPT. C-reactive protein is pretty elevated this morning. ASSESSMENT AND PLAN: 1. The patient who presents with cough and increased shortness of breath that has underlying inflammatory process in the lungs. The patient is awaiting a bronchoscopy today. 2. Bilateral leg edema with echocardiogram showing normal LV function. This is most likely from protein calorie malnutrition and hypoproteinemia. 3. Ventral hernia with the bowel loops with fistula. The patient is to have surgery at [place] [facility] soon. 4. Urinary tract infection. Continue antibiotics. Once we have the cultures completed, we will change medications. 5. Hypokalemia. Supplementation will be given. 6. Abnormal liver function tests of unknown etiology, could be nonalcoholic steatohepatitis. The patient had a hepatitis profile, I do not have the results yet. CT of the abdomen did not show any pathology in the liver. We will repeat labs in the morning. Awaiting Dr. Willis's opinion. [place], [place] PROGRESS NOTE NAME: ILENE WALKER UNIT #: [id number] ROOM: 522 DOCTOR: KENNEDI GLASER MD BIRTHDATE: [birth year] KENNEDI GLASER MD CM:PNGUY [id number] KENNEDI GLASER MD 03/30/18 1729 interface
--- NOTE | ~2018-03-28 | EKG ---
[place], [place] ELECTROCARDIOGRAM REPORT NAME: ILENE WALKER UNIT #: [id number] ROOM: 522 DOCTOR: CLARK DRAFT REPORT BIRTHDATE: [birth year] [facility] Test Date: 2018-03-28 Test Time: 19:07:54 Pat Name: ILENE AWLKER Department: Room: Gender: F [employer]: : 1965 Requested By: AMY LEYVA Order Number: [id number] Reading MD: Will Cantu MD Measurements Intervals [place] Rate: 79 P: 81 AR: 136 QRS: 55 QRSD: 92 T: 47 QT: 365 QTc: 419 Interpretive Statements Sinus rhythm Low voltage, extremity and precordial leads Probable anteroseptal infarct, old Baseline wander in lead(s) I,II,aVR,aVL,V4 Electronically Signed On 03-28-2018 19:24:57 PDT by Will Cantu MD CM:EKGRPT:ELECTROCARDIOGRAM REPORT 06 23 AMY RODAS DRAFT REPORT AMY LEYVA M.D.
--- NOTE | ~2018-03-28 | DS ---
[place], [place] DISCHARGE SUMMARY NAME: ILENE WALKER UNIT #: [id number] ROOM: 522 DOCTOR: KENNEDI GLASER MD BIRTHDATE: [birth year] DOS: 04/04/2018 DIAGNOSES: 1. Pneumonia. 2. Gram-negative Escherichia coli, status post bronchoscopy with bronchoscopy cultures also showing Escherichia coli. 3. Enterocutaneous fistula. 4. Ventral hernia. 5. History of hernia repair. 6. History of gastric bypass. 7. History of colorectal cancer, status post colectomy, fistula. 8. History of protein-calorie malnutrition, moderate to severe. 9. Angular cheilosis. 10. History of alcohol abuse. 11. History of renal abscess. 12. Moderate cigarette smoker. HOSPITAL COURSE: The patient is 52-year-old, not known to me, comes in with complaints of cough and sputum production. The patient has chronic leakage of stool from her fistula and chronic irritation of the leg, abdominal wall as well as buttocks from this chronic drainage. She is supposed to have enterocutaneous fistula repaired at [facility] soon. After admission a sputum culture was ordered. Dr. Del Rosario was consulted for bronchoscopy. The patient was placed on multiple IV antibiotics. A CT showed pneumonia, left lower lobe. The patient had improvement slowly with antibiotics. Basic metabolic panel was normal except for hypokalemia, hypocalcemia and hypoproteinemia. High protein diet was ordered. Sputum cultures have grown E. coli and the patient is on appropriate antibiotics. Dr. Del Rosario feels that the patient may benefit from outpatient antibiotics. Elevated liver enzymes were noted, which was multifactorial. A hepatitis panel was done, which was ruled out. Liver enzymes have slowly come down. The patient is stable and improved this morning. The plan is to discharge her home with PICC line, on Rocephin 2 grams IV daily for 10 days. Follow up with Dr. Benitez. Her home medications are being continued. [place], [place] DISCHARGE SUMMARY NAME: ILENE WALKER UNIT #: [id number] ROOM: 522 DOCTOR: KENNEDI GLASER MD BIRTHDATE: [birth year] KENNEDI GLASER MD CM:SHAISTA [id number] KENNEDI GLASER MD 04/27/18 0747 interface
[~2018-03-28 18:32] MED LIST changes: -ADVAIR 250/501 EA INH; -CEFTRIAXON2 GM/50 ML IV; -FUROSEMIDE40 MG PO; -NYSTATIN CREAM15 GM T; -POTASSIUM CHLO20 ME4 PO; -VENTOLIN,PR2 MG/5 ML PO; -Zofran4 MG SL
[2018-03-28 18:33] VITALS: BP 125/81
[2018-03-28] MEDS ORDERED: FUROSEMIDE40 MG PO (18:35)
[2018-03-28] MEDS ORDERED: POTASSIUM CHLO20 ME4 PO (18:35)
[2018-03-28 18:47] VITALS: BP 118/78
[2018-03-28 19:07] LABS: BASO % 0.3 % (0.0-1.0); EOS # 0.1 10*3/uL (0.0-0.4); HEMOGLOBIN 9.2 g/dl (12.0-16.0); LYMPH # 0.8 10*3/uL (1.3-4.4); LYMPH % 13.2 % (27.0-41.0); MEAN CORPUSCULAR HGB 32.9 pg (27.0-31.0); MEAN CORPUSCULAR HGB CONC 32.9 g/dl (33.0-37.0); MEAN PLATELET VOLUME 10.3 fl (9.6-12.3); MONO # 0.2 10*3/uL (0.1-1.0); MONO % 3.2 % (3.0-9.0); NEUT # 4.8 10*3/uL (2.3-7.9); PLATELET COUNT AUTOMATED 222 10*3/uL (130-400); RED CELL DISTRI WIDTH 14.9 % (0-14.5); WHITE BLOOD COUNT 5.9 10*3/uL (4.8-10.8)
[2018-03-28 19:23] LABS: ALBUMIN 1.3 gm/dl (3.1-4.5); ALKALINE PHOSPHATASE 231 U/L (45-117); BUN 8 mg/dl (7-24); CHLORIDE 109 mmol/L (98-107); CREATININE 1.32 mg/dL (0.55-1.02); POTASSIUM 3.2 mmol/L (3.5-5.1); SGOT/AST 672 IU/L (3-35); SGPT/ALT 212 U/L (12-78); SODIUM 137 mmol/L (136-145); TOTAL PROTEIN 4.4 gm/dL (6.4-8.2)
[2018-03-28 19:26] LABS: TROPONIN I < 0.015 ng/ml (<0.045)
[2018-03-28 21:15] VITALS: BP 116/68
[2018-03-28 21:50] VITALS: BP 113/55; BP 116/68
[2018-03-28 22:40] VITALS: BP 125/85
[2018-03-29] VITALS: BP 112/66
[2018-03-29 07:00] LABS: BUN 7 mg/dl (7-24); CHLORIDE 111 mmol/L (98-107); CREATININE 0.93 mg/dL (0.55-1.02); POTASSIUM 3.1 mmol/L (3.5-5.1); SODIUM 140 mmol/L (136-145)
[2018-03-29 08:00] VITALS: BP 96/81
[2018-03-29 08:57] LABS: ACT PARTIAL THROMBO TIME 34.3 SECONDS (20.8-31.5); INTERNATIONAL NORM RATIO 1.6 (2.0-3.5)
[2018-03-29 09:56] LABS: BILIRUBIN NEGATIVE (NEGATIVE); BLOOD TRACE-INTACT (NEGATIVE); CLARITY SL CLOUDY (CLEAR); COLOR YELLOW (YELLOW); GLUCOSE NEGATIVE (NEGATIVE); KETONE NEGATIVE (NEGATIVE); LEUKO ESTERASE 3+ (NEGATIVE); NITRITE NEGATIVE (NEGATIVE); UROBILINOGEN 0.2 E.U./dl (0.2-1.0)
[2018-03-29 10:02] LABS: BACTERIA 2+; EPITHELIAL CELLS 21-30; MUCOUS TRACE; WBC TNTC wbc/hpf (0-5)
[2018-03-29 12:00] VITALS: BP 103/60
[2018-03-29 16:00] VITALS: BP 100/63
[2018-03-29 21:33] VITALS: BP 104/61; BP 118/68
[2018-03-30] VITALS (10 sets, daily range): BP systolic 101–145; BP diastolic 57–70
[2018-03-30 06:41] LABS: BASO % 0.3 % (0.0-1.0); EOS % 0.1 % (1.0-4.0); HEMATOCRIT 25.6 % (37.0-47.0); HEMOGLOBIN 8.5 g/dl (12.0-16.0); LYMPH # 0.5 10*3/uL (1.3-4.4); LYMPH % 6.5 % (27.0-41.0); MEAN CORPUSCULAR HGB 32.2 pg (27.0-31.0); MEAN CORPUSCULAR HGB CONC 33.2 g/dl (33.0-37.0); MEAN PLATELET VOLUME 10.2 fl (9.6-12.3); MONO # 0.3 10*3/uL (0.1-1.0); MONO % 3.5 % (3.0-9.0); NEUT # 6.5 10*3/uL (2.3-7.9); NEUT % 88.9 % (47.0-73.0); PLATELET COUNT AUTOMATED 172 10*3/uL (130-400); RED BLOOD COUNT 2.64 10*6/uL (4.10-5.10); WHITE BLOOD COUNT 7.3 10*3/uL (4.8-10.8)
[2018-03-30 07:15] LABS: ALBUMIN 1.3 gm/dl (3.1-4.5); ALKALINE PHOSPHATASE 245 U/L (45-117); BUN 6 mg/dl (7-24); CHLORIDE 107 mmol/L (98-107); CREATININE 1.02 mg/dL (0.55-1.02); POTASSIUM 3.1 mmol/L (3.5-5.1); SGOT/AST 308 IU/L (3-35); SGPT/ALT 205 U/L (12-78); SODIUM 137 mmol/L (136-145); TOTAL PROTEIN 4.5 gm/dL (6.4-8.2)
[2018-03-30 08:11] LABS: HEPATITIS B SURFACE AG Negative (Negative); HEPATITIS C VIRUS ANTIBODY <0.1 s/co (0.0-0.9)
[2018-03-30 08:11] LABS: IMMUNOGLOBULIN M, QNT 82 mg/dL (26-217); RHEUMATOID ARTHRITIS FACTOR <10.0 IU/mL (0.0-13.9)
[2018-03-30 11:50] LABS: BF LYMPHOCYTES 4 %; BF MACROPHAGES 20 %; BF NEUTROPHILS 76 %
[2018-03-30 15:07] LABS: ATYPICAL PANCA <1:20 titer (Neg:<1:20); CYTOPLASMIC (C-ANCA) <1:20 titer (Neg:<1:20)
[2018-03-30 18:08] LABS: ALDOLASE 002030 32.8 U/L (3.3-10.3); ANGIOTENSIN-CONVERTING ENZYME 72 U/L (14-82)
[2018-03-31] VITALS: BP 111/68
[2018-03-31 06:31] LABS: BASO % 0.1 % (0.0-1.0); EOS % 0.5 % (1.0-4.0); HEMATOCRIT 25.3 % (37.0-47.0); HEMOGLOBIN 8.4 g/dl (12.0-16.0); LYMPH # 0.6 10*3/uL (1.3-4.4); LYMPH % 7.4 % (27.0-41.0); MEAN CELL VOLUME 97.3 fl (81.0-99.0); MEAN CORPUSCULAR HGB 32.3 pg (27.0-31.0); MEAN CORPUSCULAR HGB CONC 33.2 g/dl (33.0-37.0); MEAN PLATELET VOLUME 10.7 fl (9.6-12.3); MONO # 0.3 10*3/uL (0.1-1.0); MONO % 3.7 % (3.0-9.0); NEUT # 7.1 10*3/uL (2.3-7.9); NEUT % 87.7 % (47.0-73.0); PLATELET COUNT AUTOMATED 146 10*3/uL (130-400); WHITE BLOOD COUNT 8.1 10*3/uL (4.8-10.8)
[2018-03-31 07:05] LABS: IGG SUBCLASS 1 564 mg/dL (248-810); IGG SUBCLASS 2 345 mg/dL (130-555); IGG SUBCLASS 3 33 mg/dL (15-102); IGG SUBCLASS 4 34 mg/dL (2-96); IMMUNOGLOBULIN G, QNT 980 mg/dL (700-1600)
[2018-03-31 07:07] LABS: ALBUMIN 1.2 gm/dl (3.1-4.5); BUN 5 mg/dl (7-24); CHLORIDE 107 mmol/L (98-107); CREATININE 0.69 mg/dL (0.55-1.02); POTASSIUM 3.5 mmol/L (3.5-5.1); SGOT/AST 152 IU/L (3-35); SGPT/ALT 140 U/L (12-78); SODIUM 138 mmol/L (136-145)
[2018-03-31 07:11] LABS: ALKALINE PHOSPHATASE 216 U/L (45-117); TOTAL PROTEIN 4.5 gm/dL (6.4-8.2)
[2018-03-31 08:00] VITALS: BP 116/78
[2018-03-31 12:00] VITALS: BP 106/73
[2018-03-31 15:06] LABS: ACID FAST SPEC PROCESSING Concentration (.)
[2018-03-31 16:00] VITALS: BP 105/59
[2018-03-31 20:00] VITALS: BP 134/65
[2018-04-01] VITALS: BP 100/68
[2018-04-01 06:21] LABS: BASO % 0.2 % (0.0-1.0); EOS # 0.1 10*3/uL (0.0-0.4); EOS % 0.8 % (1.0-4.0); HEMATOCRIT 25.9 % (37.0-47.0); HEMOGLOBIN 8.5 g/dl (12.0-16.0); LYMPH # 0.7 10*3/uL (1.3-4.4); LYMPH % 6.5 % (27.0-41.0); MEAN CELL VOLUME 98.5 fl (81.0-99.0); MEAN CORPUSCULAR HGB 32.3 pg (27.0-31.0); MEAN CORPUSCULAR HGB CONC 32.8 g/dl (33.0-37.0); MEAN PLATELET VOLUME 10.6 fl (9.6-12.3); MONO # 0.3 10*3/uL (0.1-1.0); MONO % 3.1 % (3.0-9.0); NEUT # 8.9 10*3/uL (2.3-7.9); NEUT % 87.8 % (47.0-73.0); PLATELET COUNT AUTOMATED 141 10*3/uL (130-400); RED BLOOD COUNT 2.63 10*6/uL (4.10-5.10); RED CELL DISTRI WIDTH 15.3 % (0-14.5); WHITE BLOOD COUNT 10.1 10*3/uL (4.8-10.8)
[2018-04-01 06:44] LABS: BUN 4 mg/dl (7-24); CHLORIDE 106 mmol/L (98-107); CREATININE 0.57 mg/dL (0.55-1.02); POTASSIUM 3.7 mmol/L (3.5-5.1); SODIUM 137 mmol/L (136-145)
[2018-04-01 09:05] LABS: IMMUNOGLOBULIN IgE 002170 628 IU/mL (0-100)
[2018-04-01 12:00] VITALS: BP 116/69
[2018-04-01 16:00] VITALS: BP 108/65
[2018-04-01 20:00] VITALS: BP 111/61
[2018-04-02] VITALS: BP 133/81
[2018-04-02 06:46] LABS: BUN 4 mg/dl (7-24); CHLORIDE 105 mmol/L (98-107); CREATININE 0.44 mg/dL (0.55-1.02); SODIUM 140 mmol/L (136-145)
[2018-04-02 08:00] VITALS: BP 124/76
[2018-04-02 11:25] VITALS: BP 109/68
[2018-04-02 16:00] VITALS: BP 122/71
[2018-04-02 20:00] VITALS: BP 114/71
[2018-04-03] VITALS: BP 115/72
[2018-04-03 08:00] VITALS: BP 116/66
[2018-04-03 08:27] LABS: BUN 3 mg/dl (7-24)
[2018-04-03 08:42] LABS: CHLORIDE 108 mmol/L (98-107); CREATININE 0.33 mg/dL (0.55-1.02); POTASSIUM 3.1 mmol/L (3.5-5.1); SODIUM 144 mmol/L (136-145)
[2018-04-03 12:00] VITALS: BP 130/78
[2018-04-03 16:00] VITALS: BP 118/75
[2018-04-03 20:00] VITALS: BP 137/85
[2018-04-04] VITALS: BP 112/70
[2018-04-04 06:26] LABS: BUN 3 mg/dl (7-24); CHLORIDE 106 mmol/L (98-107); CREATININE 0.35 mg/dL (0.55-1.02); POTASSIUM 3.3 mmol/L (3.5-5.1); SODIUM 141 mmol/L (136-145)
[2018-04-04 08:00] VITALS: BP 120/75; BP 20/75
[2018-04-04 12:00] VITALS: BP 109/65
[2018-04-04] MEDS ORDERED: CEFTRIAXON2 GM/50 ML IV (14:25)
[2018-04-15] MEDS ORDERED: ADVAIR 250/501 EA INH (15:42)
[2018-04-15] MEDS ORDERED: VENTOLIN,PR2 MG/5 ML PO (15:43)
[2018-04-15] MEDS ORDERED: NYSTATIN CREAM15 GM T (16:01)
[2018-05-04 12:05] LABS: ACID FAST CULTURE Positive (.); M AVIUM COMPLEX Negative (.); M GORDONAE Not Indicated (.); M KANSASII Not Indicated (.); M TUBERCULOSIS COMPLEX Negative (.)
== END 2018-04-04 16:42 | disposition home health service (06) | DRG 853 ==
LOC: ED 18:32 → 5E 20:55 → EDHOLD 20:55 → 5E 21:09
PROVIDERS: Emergency Medicine; Internal Medicine; Internal Medicine Critical Care Medicine
PROC: 0BC98ZZ Extirpation of Matter from Lingula Bronchus, Via Natural or Artificial Opening Endoscopic (ICD-10-PCS; principal; 2018-03-30)
PROC: 0B9G8ZX Drainage of Left Upper Lung Lobe, Via Natural or Artificial Opening Endoscopic, Diagnostic (ICD-10-PCS; 2018-03-30)
PROC: 0BC48ZZ Extirpation of Matter from Right Upper Lobe Bronchus, Via Natural or Artificial Opening Endoscopic (ICD-10-PCS; 2018-03-30)
PROC: 0BC88ZZ Extirpation of Matter from Left Upper Lobe Bronchus, Via Natural or Artificial Opening Endoscopic (ICD-10-PCS; 2018-03-30)
PROC: 0BC58ZZ Extirpation of Matter from Right Middle Lobe Bronchus, Via Natural or Artificial Opening Endoscopic (ICD-10-PCS; 2018-03-30)
PROC: 0BC38ZZ Extirpation of Matter from Right Main Bronchus, Via Natural or Artificial Opening Endoscopic (ICD-10-PCS; 2018-03-30)
PROC: 0BC78ZZ Extirpation of Matter from Left Main Bronchus, Via Natural or Artificial Opening Endoscopic (ICD-10-PCS; 2018-03-30)
PROC: 0BC68ZZ Extirpation of Matter from Right Lower Lobe Bronchus, Via Natural or Artificial Opening Endoscopic (ICD-10-PCS; 2018-03-30)
PROC: 0BCB8ZZ Extirpation of Matter from Left Lower Lobe Bronchus, Via Natural or Artificial Opening Endoscopic (ICD-10-PCS; 2018-03-30)
PROC: 0BC18ZZ Extirpation of Matter from Trachea, Via Natural or Artificial Opening Endoscopic (ICD-10-PCS; 2018-03-30)
PROC: 02HV33Z Insertion of Infusion Device into Superior Vena Cava, Percutaneous Approach (ICD-10-PCS; 2018-04-04)
DX: A41.9 Sepsis, unspecified organism (principal); J15.6 Pneumonia due to other Gram-negative bacteria; J96.20 Acute and chronic respiratory failure, unspecified whether with hypoxia or hypercapnia; E43 Unspecified severe protein-calorie malnutrition; K63.2 Fistula of intestine; N17.9 Acute kidney failure, unspecified; N39.0 Urinary tract infection, site not specified; F33.0 Major depressive disorder, recurrent, mild; K21.0 Gastro-esophageal reflux disease with esophagitis; D63.8 Anemia in other chronic diseases classified elsewhere; E83.51 Hypocalcemia; E87.5 Hyperkalemia; R65.20 Severe sepsis without septic shock; F17.210 Nicotine dependence, cigarettes, uncomplicated; A08.4 Viral intestinal infection, unspecified; E66.8 Other obesity; B96.20 Unspecified Escherichia coli [E. coli] as the cause of diseases classified elsewhere; R74.0 Nonspecific elevation of levels of transaminase and lactic acid dehydrogenase [LDH]; T50.2X5A Adverse effect of carbonic-anhydrase inhibitors, benzothiadiazides and other diuretics, initial encounter; R62.7 Adult failure to thrive; E87.6 Hypokalemia; Z16.23 Resistance to quinolones and fluoroquinolones; E77.8 Other disorders of glycoprotein metabolism; K43.9 Ventral hernia without obstruction or gangrene; Z98.84 Bariatric surgery status; Z85.038 Personal history of other malignant neoplasm of large intestine; Z88.1 Allergy status to other antibiotic agents; Z88.5 Allergy status to narcotic agent; Z88.8 Allergy status to other drugs, medicaments and biological substances; Z90.710 Acquired absence of both cervix and uterus; Z98.891 History of uterine scar from previous surgery; Z80.9 Family history of malignant neoplasm, unspecified; Z82.3 Family history of stroke; Y92.89 Other specified places as the place of occurrence of the external cause; Z68.25 Body mass index [BMI] 25.0-25.9, adult

== ENCOUNTER 2018-04-12 17:40 | Emergency (ER) | payer OTHER ==
[~2018-04-12] VITALS: Ht 172.7 cm; Wt 65.8 kg
[~2018-04-12 17:40] MED LIST changes: +CEFTRIAXON2 GM/50 ML IV; +FUROSEMIDE40 MG PO; +POTASSIUM CHLO20 ME4 PO
[2018-04-12 18:21] LABS: BASO # 0.1 10*3/uL (0.0-0.1); BASO % 1.8 % (0.0-1.0); EOS # 0.3 10*3/uL (0.0-0.4); EOS % 5.8 % (1.0-4.0); HEMATOCRIT 26.6 % (37.0-47.0); HEMOGLOBIN 8.2 g/dl (12.0-16.0); LYMPH # 1.1 10*3/uL (1.3-4.4); LYMPH % 20.6 % (27.0-41.0); MEAN CELL VOLUME 106.8 fl (81.0-99.0); MEAN CORPUSCULAR HGB 32.9 pg (27.0-31.0); MEAN CORPUSCULAR HGB CONC 30.8 g/dl (33.0-37.0); MEAN PLATELET VOLUME 10.7 fl (9.6-12.3); MONO # 0.5 10*3/uL (0.1-1.0); MONO % 9.7 % (3.0-9.0); NEUT # 3.2 10*3/uL (2.3-7.9); NEUT % 61.7 % (47.0-73.0); PLATELET COUNT AUTOMATED 307 10*3/uL (130-400); RED BLOOD COUNT 2.49 10*6/uL (4.10-5.10); RED CELL DISTRI WIDTH 17.5 % (0-14.5); WHITE BLOOD COUNT 5.1 10*3/uL (4.8-10.8)
[2018-04-12 18:35] LABS: ALBUMIN 1.2 gm/dl (3.1-4.5); ALKALINE PHOSPHATASE 119 U/L (45-117); BUN 6 mg/dl (7-24); CHLORIDE 117 mmol/L (98-107); CREATININE 0.51 mg/dL (0.55-1.02); POTASSIUM 4.4 mmol/L (3.5-5.1); SGOT/AST 22 IU/L (3-35); SGPT/ALT 20 U/L (12-78); SODIUM 145 mmol/L (136-145); TOTAL PROTEIN 5.2 gm/dL (6.4-8.2)
[2018-04-12 18:53] LABS: BILIRUBIN NEGATIVE (NEGATIVE); BLOOD NEGATIVE (NEGATIVE); CLARITY SL CLOUDY (CLEAR); COLOR YELLOW (YELLOW); GLUCOSE NEGATIVE (NEGATIVE); KETONE NEGATIVE (NEGATIVE); LEUKO ESTERASE 2+ (NEGATIVE); NITRITE NEGATIVE (NEGATIVE); SPECIFIC GRAVITY 1.015 (1.005-1.030); UROBILINOGEN 0.2 E.U./dl (0.2-1.0)
[2018-04-12 19:04] LABS: BACTERIA 2+; EPITHELIAL CELLS 20-25
[2018-04-12] MEDS ORDERED: Zofran4 MG SL (20:01)
[2018-04-15] MEDS ORDERED: ADVAIR 250/501 EA INH (15:42)
[2018-04-15] MEDS ORDERED: VENTOLIN,PR2 MG/5 ML PO (15:43)
[2018-04-15] MEDS ORDERED: NYSTATIN CREAM15 GM T (16:01)
== END 2018-04-12 20:20 | disposition home or self-care (01) ==
LOC: ED 17:40
PROVIDERS: Emergency Medicine
DX: R11.2 Nausea with vomiting, unspecified (principal); R19.7 Diarrhea, unspecified; R10.84 Generalized abdominal pain; F17.200 Nicotine dependence, unspecified, uncomplicated; K21.9 Gastro-esophageal reflux disease without esophagitis; Z98.890 Other specified postprocedural states; Z90.710 Acquired absence of both cervix and uterus; Z98.84 Bariatric surgery status; Z79.899 Other long term (current) drug therapy; Z88.5 Allergy status to narcotic agent; Z88.1 Allergy status to other antibiotic agents; Z88.8 Allergy status to other drugs, medicaments and biological substances

== ENCOUNTER → 2018-04-14 | Outpatient (CLI) | payer OTHER ==
[~2018-04-14] MED LIST changes: +ADVAIR 250/501 EA INH; +NYSTATIN CREAM15 GM T; +VENTOLIN,PR2 MG/5 ML PO; +Zofran4 MG SL
[2018-04-14 14:01] LABS: HEMATOCRIT 29.8 % (37.0-47.0); HEMOGLOBIN 8.9 g/dl (12.0-16.0); MEAN CELL VOLUME 109.6 fl (81.0-99.0); MEAN CORPUSCULAR HGB 32.7 pg (27.0-31.0); MEAN CORPUSCULAR HGB CONC 29.9 g/dl (33.0-37.0); MEAN PLATELET VOLUME 10.8 fl (9.6-12.3); RED BLOOD COUNT 2.72 10*6/uL (4.10-5.10); RED CELL DISTRI WIDTH 17.6 % (0-14.5); WHITE BLOOD COUNT 6.9 10*3/uL (4.8-10.8)
[2018-04-14 14:15] LABS: ALBUMIN 1.3 gm/dl (3.1-4.5); ALKALINE PHOSPHATASE 130 U/L (45-117); BUN 6 mg/dl (7-24); CHLORIDE 114 mmol/L (98-107); CREATININE 0.55 mg/dL (0.55-1.02); POTASSIUM 3.8 mmol/L (3.5-5.1); SGOT/AST 24 IU/L (3-35); SGPT/ALT 22 U/L (12-78); SODIUM 143 mmol/L (136-145); TOTAL PROTEIN 5.7 gm/dL (6.4-8.2)
== END | disposition home or self-care (01) ==
LOC: LAB 13:18
PROVIDERS: Family Medicine
DX: R53.83 Other fatigue (principal); J18.9 Pneumonia, unspecified organism

== ENCOUNTER → 2018-04-15 | Outpatient (CLI) | payer OTHER | END | disposition home or self-care (01) | LOC: RAD 04-14 14:47 | DX: J18.9 Pneumonia, unspecified organism (principal); R06.02 Shortness of breath; R53.83 Other fatigue ==

== ENCOUNTER → 2018-05-04 | Outpatient (CLI) | payer OTHER ==
[~2018-05-04] MED LIST changes: +FERROUS SULFAT325 MG PO; +MULTIVITAMINS1 EAC5 PO; +PROAIR HFA8.5 GM INH; +VENLAFAXINE75 M1 PO
== END | disposition home or self-care (01) ==
LOC: RAD 09:36
DX: R07.81 Pleurodynia (principal)

== ENCOUNTER 2018-06-10 16:30 | Emergency (ER) | payer OTHER ==
[~2018-06-10] VITALS: Ht 172.7 cm; Wt 63.5 kg
--- NOTE | ~2018-06-10 | EKG ---
[place], [place] ELECTROCARDIOGRAM REPORT NAME: ILENE WALKER UNIT #: [id number] ROOM: DOCTOR: EPIPHANY DRAFT REPORT BIRTHDATE: [birth year] [facility] Test Date: 2018-06-10 Test Time: 16:43:21 Pat Name: ILENE WALKER Department: ER Room: 4 Gender: F [employer] Former: EKG.PA : 1965 Requested By: STEPHANIE SAMUEL Order Number: [id number] Reading MD: Gwendolyn Mayorga MD Measurements Intervals [place] Rate: 111 P: 68 SD: 109 QRS: 53 QRSD: 73 T: 57 QT: 287 QTc: 390 Interpretive Statements Sinus tachycardia Atrial premature complexes Probable anteroseptal infarct, old Compared to ECG 03/28/2018 19:07:54 Atrial premature complex(es) now present Sinus rhythm no longer present Myocardial infarct finding still present Electronically Signed On 06-12-2018 9:15:29 PDT by Gwendolyn Mayorga MD CM:EKGRPT:ELECTROCARDIOGRAM REPORT 1643 0915 STEPHANIE SAMUEL MD EPIPHANY DRAFT REPORT STEPHANIE SAMUEL MD
[~2018-06-10 16:30] MED LIST changes: -FERROUS SULFAT325 MG PO; -MULTIVITAMINS1 EAC5 PO; -PROAIR HFA8.5 GM INH; -VENLAFAXINE75 M1 PO
[2018-06-10 16:49] LABS: BILIRUBIN NEGATIVE (NEGATIVE); BLOOD NEGATIVE (NEGATIVE); CLARITY CLEAR (CLEAR); COLOR YELLOW (YELLOW); GLUCOSE NEGATIVE (NEGATIVE); KETONE NEGATIVE (NEGATIVE); LEUKO ESTERASE 1+ (NEGATIVE); NITRITE NEGATIVE (NEGATIVE); PH 5.5 (5.0-9.0); UROBILINOGEN 0.2 E.U./dl (0.2-1.0)
[2018-06-10 17:01] LABS: BACTERIA TRACE
[2018-06-10 17:12] LABS: HEMATOCRIT 29.1 % (37.0-47.0); HEMOGLOBIN 9.2 g/dl (12.0-16.0); MEAN CORPUSCULAR HGB 34.5 pg (27.0-31.0); MEAN CORPUSCULAR HGB CONC 31.6 g/dl (33.0-37.0); MEAN PLATELET VOLUME 10.5 fl (9.6-12.3); PLATELET COUNT AUTOMATED 215 10*3/uL (130-400); RED BLOOD COUNT 2.67 10*6/uL (4.10-5.10); WHITE BLOOD COUNT 7.4 10*3/uL (4.8-10.8)
[2018-06-10 17:21] LABS: ACT PARTIAL THROMBO TIME 30.1 SECONDS (20.8-31.5); INTERNATIONAL NORM RATIO 1.1 (2.0-3.5)
[2018-06-10 17:30] LABS: ALBUMIN 1.3 gm/dl (3.1-4.5); ALKALINE PHOSPHATASE 235 U/L (45-117); BUN 3 mg/dl (7-24); CHLORIDE 113 mmol/L (98-107); CREATININE 0.78 mg/dL (0.55-1.02); SGOT/AST 71 IU/L (3-35); SGPT/ALT 31 U/L (12-78); SODIUM 145 mmol/L (136-145); TOTAL PROTEIN 5.3 gm/dL (6.4-8.2)
[2018-06-10 17:36] LABS: TROPONIN I < 0.015 ng/ml (<0.045)
[2018-06-10 17:40] LABS: PLATELET SUFFICIENCY NORMAL (NORMAL); ROULEAUX SLIGHT; TOTAL CELLS COUNTED 100 #CELLS
[2018-06-10 17:41] LABS: BURR CELLS FEW; POLYCHROMASIA SLIGHT
[2018-07-20] MEDS ORDERED: CLARITIN10 MG PO (12:53)
[2018-07-20] MEDS ORDERED: VENLAFAXINE75 M1 PO (12:53)
[2018-07-20] MEDS ORDERED: VITAMIN D5000 UNIT PO (12:54)
[2018-07-20] MEDS ORDERED: MULTIVITAMINS1 EAC5 PO (12:54)
[2018-07-20] MEDS ORDERED: PRILOSEC20 M1 PO (12:54)
[2018-07-20] MEDS ORDERED: FERROUS SULFAT325 MG PO (12:55)
[2018-07-20] MEDS ORDERED: PROAIR HFA8.5 GM INH (12:55)
== END 2018-06-11 02:26 | disposition short-term general hospital (02) ==
LOC: ED 16:30
PROVIDERS: Emergency Medicine
DX: L03.311 Cellulitis of abdominal wall (principal); R06.02 Shortness of breath; M79.605 Pain in left leg; M79.604 Pain in right leg; R51 Headache; K21.9 Gastro-esophageal reflux disease without esophagitis; Z85.038 Personal history of other malignant neoplasm of large intestine; Z88.1 Allergy status to other antibiotic agents; Z88.5 Allergy status to narcotic agent; Z88.2 Allergy status to sulfonamides

== ENCOUNTER → 2018-07-20 | Outpatient (CLI) | payer OTHER ==
[~2018-07-20] MED LIST changes: +FERROUS SULFAT325 MG PO; +MULTIVITAMINS1 EAC5 PO; +PROAIR HFA8.5 GM INH; +VENLAFAXINE75 M1 PO
--- NOTE | ~2018-07-20 | ST ---
[place], [place] EXERCISE STRESS TEST REPORT NAME: ILENE WALKER UNIT #: [id number] ROOM: DOCTOR: ANGIE FONTANEZ MD BIRTHDATE: [birth year] DOS: 07/20/2018 EXERCISE STRESS TEST INDICATIONS: Abnormal electrocardiogram, preoperative assessment prior to abdominal surgery. PROCEDURE: The patient was scheduled to walk on a full Olegario protocol stress test. She was able to walk on the warmup stage at 0.7 miles per hour. However, whenever we went into the exercise stage at 1.7 she felt that the belt was going too fast, felt lightheaded, felt like she was going to trip and fall and asked us to stop the treadmill within 5 seconds of our going into exercise stage. She did not have chest pain, but did not achieve enough exercise to call the test diagnostic. The test had to be stopped for the patient's safety. IMPRESSION: Inadequate stress test. ANGIE FONTANEZ MD CM:STRESS:EXERCISE STRESS TEST REPORT 1403 0152 ANGIE FONTANEZ MD
== END | disposition home or self-care (01) ==
LOC: CARD 03:33
DX: Z01.810 Encounter for preprocedural cardiovascular examination (principal); R94.39 Abnormal result of other cardiovascular function study; R06.09 Other forms of dyspnea; R06.02 Shortness of breath

== ENCOUNTER → 2018-08-03 | Outpatient (CLI) | payer OTHER ==
--- NOTE | ~2018-08-03 | ST ---
[place], [place] EXERCISE STRESS TEST REPORT NAME: ILENE WALKER UNIT #: [id number] ROOM: DOCTOR: CHERRIE WITT MD BIRTHDATE: [birth year] DOS: 08/03/2018 LEXISCAN STRESS EKG REPORT REFERRING PHYSICIAN: Dr. Wilcox, Cardiology. INDICATION: Preop clearance of chest pain. The patient underwent standard protocol Lexiscan stress EKG. The patient's baseline EKG showed sinus bradycardia with heart rates of 57 with blood pressure at baseline of 92/58. The patient's peak heart rate was 80 with blood pressure 192/54. The patient had no chest pain, no ischemic changes, no significant arrhythmias. SUMMARY OF FINDINGS: Unremarkable Lexiscan stress EKG. Please see separate report for perfusion scan results. CHERRIE WITT MD CM:STRESS:EXERCISE STRESS TEST REPORT 1025 1050 CHERRIE WITT MD
== END | disposition home or self-care (01) ==
LOC: CARD 04:15
DX: Z01.818 Encounter for other preprocedural examination (principal); R94.31 Abnormal electrocardiogram [ECG] [EKG]; I51.9 Heart disease, unspecified; R53.81 Other malaise

== ENCOUNTER 2019-05-09 11:47 | Emergency (ER) | payer OTHER ==
[~2019-05-09] VITALS: Ht 175.2 cm; Wt 53.1 kg
[2019-05-09 12:21] LABS: HEMATOCRIT 38.5 % (37.0-47.0); HEMOGLOBIN 12.4 g/dl (12.0-16.0); MEAN CELL VOLUME 110.6 fl (81.0-99.0); MEAN CORPUSCULAR HGB 35.6 pg (27.0-31.0); MEAN CORPUSCULAR HGB CONC 32.2 g/dl (33.0-37.0); MEAN PLATELET VOLUME 9.8 fl (9.6-12.3); PLATELET COUNT AUTOMATED 255 10*3/uL (130-400); RED BLOOD COUNT 3.48 10*6/uL (4.10-5.10); RED CELL DISTRI WIDTH 12.5 % (0-14.5); WHITE BLOOD COUNT 12.1 10*3/uL (4.8-10.8)
[2019-05-09 12:30] LABS: BILIRUBIN NEGATIVE (NEGATIVE); BLOOD NEGATIVE (NEGATIVE); CLARITY CLOUDY (CLEAR); COLOR YELLOW (YELLOW); GLUCOSE NEGATIVE (NEGATIVE); KETONE NEGATIVE (NEGATIVE); LEUKO ESTERASE 1+ (NEGATIVE); NITRITE POSITIVE (NEGATIVE); PH 6.5 (5.0-9.0)
[2019-05-09 12:39] LABS: ALBUMIN 2.3 gm/dl (3.1-4.5); ALKALINE PHOSPHATASE 420 U/L (45-117); BUN 9 mg/dl (7-24); CHLORIDE 105 mmol/L (98-107); CREATININE 0.68 mg/dL (0.55-1.02); POTASSIUM 3.9 mmol/L (3.5-5.1); SGOT/AST 88 IU/L (3-35); SGPT/ALT 62 U/L (12-78); SODIUM 138 mmol/L (136-145); TOTAL PROTEIN 6.6 gm/dL (6.4-8.2)
[2019-05-09 12:46] LABS: BACTERIA 4+
[2019-05-09 12:48] LABS: WBC 31-40 wbc/hpf (0-5)
[2019-05-09 12:58] LABS: BASOPHILS 1 % (0-1); PLATELET SUFFICIENCY NORMAL (NORMAL); TOTAL CELLS COUNTED 100 #CELLS
[2019-05-09 12:59] LABS: SCHISTOCYTES FEW
[2019-05-09] MEDS ORDERED: CEPHALEXIN500 M1 PO (13:57)
== END 2019-05-09 14:03 | disposition home or self-care (01) ==
LOC: ED 11:47
PROVIDERS: Nurse Practitioner Family
DX: N39.0 Urinary tract infection, site not specified (principal); I50.9 Heart failure, unspecified; J44.9 Chronic obstructive pulmonary disease, unspecified; K21.9 Gastro-esophageal reflux disease without esophagitis; F17.200 Nicotine dependence, unspecified, uncomplicated; Z88.1 Allergy status to other antibiotic agents; Z88.5 Allergy status to narcotic agent; Z88.2 Allergy status to sulfonamides; Z79.899 Other long term (current) drug therapy; Z90.710 Acquired absence of both cervix and uterus; Z90.49 Acquired absence of other specified parts of digestive tract

== ENCOUNTER 2019-07-04 15:14 | Inpatient (IN) | payer OTHER ==
[~2019-07-04] VITALS: Ht 172.7 cm; Wt 58.6 kg
--- NOTE | ~2019-07-04 | WRIGHTHP ---
[place], [place] PATIENT HISTORY AND PHYSICAL EXAM [id number] UNIT #: [id number] ROOM: 406 DOCTOR: KENNEDI GLASER MD BIRTHDATE: [birth year] DOS: 07/04/2019 HISTORY OF PRESENT ILLNESS: This patient has been sick for a few days. About 2 weeks ago, she has had a cough and shortness of breath, saw her PCP. She was already on Mucinex, advised to continue the medications. Because symptoms were not going away, she decided to come into the Emergency Room. She also had some pain when she takes a deep breath. She has aches and pains. She denies having any fever, any chills. She came to the ER, had routine x-ray, which showed bilateral pneumonia and was admitted. She denies having any fever or chills this morning. Denies having any abdominal pain, nausea, and emesis. She is a heavy smoker and requested a Nicotrol patch. PAST MEDICAL HISTORY: Rather extensive. 1. She was last hospitalized earlier this year when she underwent a small bowel resection for chronic small bowel obstruction. She also had a mesh removal and a biologic mesh placement. This has resulted in a poorly healing wound on her abdominal wall following a wound VAC placement. 2. Moderate cigarette smoker. 3. Major depression, recurrent. 4. Chronic peripheral neuropathy. 5. History of drug overdose, accidental. 6. Protein-calorie malnutrition, severe. 7. Chronic obstructive pulmonary disease. MEDICATIONS: That the patient currently is on are: Zofran 4 mg q.4 p.r.n., potassium 10 daily, Lasix 40 daily, venlafaxine 112.5 mg daily, vitamin D 5000 units daily, Prilosec 20 daily. SOCIAL HISTORY: Smoker of about half-pack of cigarettes a day. Denies using any alcohol. She lives at home. PHYSICAL EXAMINATION: GENERAL: She is awake and alert and oriented. VITAL SIGNS: Graphic trend shows a pressure of 102/61, pulse of 88, respirations 17, temperature 98.4 with T-max of 100.8. NECK: Supple. LUNGS: Diminished breath sounds. HEART: Regular. ABDOMEN: Soft, scaphoid with a small poorly healing wound on the abdominal wall. EXTREMITIES: Without any edema. SKIN: Has significant dryness noticed with some cracked noticed on her foot. LABORATORY DATA: Labs at the time of admission, no CBC was done in the ER. Glucose 126, BUN 8, creatinine 0.70, sodium 142, potassium 3.5, chloride 110, bicarbonate 25. Blood cultures, gram-positive cocci in 2 bottles. Chest x-ray shows left lower lobe pneumonia, right upper lobe pneumonia. ASSESSMENT AND PLAN: 1. Bilateral pneumonia, possible gram negative. The patient will be placed on [place], [place] PATIENT HISTORY AND PHYSICAL EXAM NAME: ILENE WALKER UNIT #: [id number] ROOM: [facility] DOCTOR: KENNEDI GLASER MD BIRTHDATE: [birth year] IV antibiotics. 2. Sepsis pattern with bacteremia noted. No lactic acid or the CBC was done in the ER, which will be ordered today. The patient is placed on IV antibiotics as well as IV vancomycin since we get the final culture results back. 3. Chronic obstructive pulmonary disease with mild exacerbation. IV steroids were ordered. 4. Moderate cigarette smoker. Start Habitrol patch. 5. Poorly healing lesion on the abdominal wall. We will advise honey dressings and for the xerostomia, the patient is advised Lac-Hydrin lotion as well as Aquaphor discussed with the patient's nurse in detail. KENNEDI GLASER MD CM:HISPHYS:PATIENT HISTORY AND PHYSICAL EXAMINATION 1434 1523 KENNEDI GLASER MD 07/05/19 1522 interface
--- NOTE | ~2019-07-04 | DS ---
[place], [place] DISCHARGE SUMMARY NAME: ILENE WALKER UNIT #: [id number] ROOM: 406 DOCTOR: KENNEDI GLASER MD BIRTHDATE: [birth year] DOS: 07/08/2019 DIAGNOSES: 1. Bilateral Strep pneumonia with Strep pneumonia, sepsis, resolved. 2. Chronic obstructive pulmonary disease. 3. Moderate cigarette smoker. 4. Protein-calorie malnutrition, severe. 5. Major depression, recurrent, moderate. 6. Chronic peripheral neuropathy. 7. History of accidental drug overdose. 8. Poorly healing wound of the abdomen. 9. History of abdominal surgery. HOSPITAL COURSE: The patient comes in with complaints of cough, shortness of breath. Please refer to H and P for details. She was found to have bilateral pneumonia on the chest x-ray, was placed on IV antibiotics. Blood cultures came back positive and was identified later Strep pneumoniae. The patient was continued on IV antibiotics. Wound care was ordered for her poorly healing wound on the abdominal wall, mild exacerbation of chronic obstructive pulmonary disease was noted for which she was given IV steroids. She improved well without any new complaints, cough and shortness of breath have subsided. Chest x-ray shows improvement in the pneumonia. Repeat blood cultures have come back negative, so the patient was discharged to home to be followed up as an outpatient. DISCHARGE MEDICATIONS: Iron 325 daily, breathing treatments with DuoNeb q. 4, multivitamin 1 tablet daily, omeprazole 40 daily, venlafaxine 75 daily, loratadine 10 daily, ondansetron 4 mg q. 6 hours p.r.n., Lasix 40 daily, gabapentin 300 b.i.d., vitamin B12 injections, melatonin 3 mg at bedtime, Levaquin 750 daily for 5 days and prednisone 5 b.i.d. for 10 days. [place], [place] DISCHARGE SUMMARY NAME: ILENE WALKER UNIT #: [id number] ROOM: 406 DOCTOR: KENNEDI GLASER MD BIRTHDATE: [birth year] KENNEDI GLASER MD CM:DISCHARG 0 6 KENNEDI GLASER MD 07/23/19 0919 interface
--- NOTE | ~2019-07-04 | PR ---
[place], [place] PROGRESS NOTE NAME: ILENE WALKER UNIT #: [id number] ROOM: 406 DOCTOR: KENNEDI GLASER MD BIRTHDATE: [birth year] DOS: SUBJECTIVE: The patient states that she feels slightly better, does not have any new complaints other than unable to sleep at night. OBJECTIVE: VITAL SIGNS: Blood pressure 118/69, pulse is 79, respirations 18, temperature 98.1. LUNGS: Diminished breath sounds. Clear. HEART: Regular. ABDOMEN: Soft, scaphoid. EXTREMITIES: Without any edema. LABORATORY DATA: Blood cultures 2 bottles of both showing Strep pneumoniae. ASSESSMENT AND PLAN: 1. Bilateral pneumonia caused by strep pneumonia, on intravenous antibiotics. Repeat blood cultures will be done today to see whether it is clearing. 2. Chronic obstructive pulmonary disease with moderate cigarette smoker. She has been using a Habitrol patch. 3. History of chronic peripheral neuropathy, on medications. 4. Primary insomnia. Add low dose of Ambien because we do not have melatonin in the hospital. 5. Xeroderma. KENNEDI GLASER MD CM:PNTRANS 17 KENNEDI GLASER MD 07/06/192116 interface
--- NOTE | ~2019-07-04 | EKG ---
[place], [place] ELECTROCARDIOGRAM REPORT NAME: ILENE WALKER UNIT #: [id number] ROOM: 406 DOCTOR: EPIPHANY DRAFT REPORT BIRTHDATE: [birth year] [facility] Test Date: 2019-07-06 Test Time: 01:38:26 Pat Name: ILENE WALKER Department: Room: 406 2 Gender: F Senior [employer]: [employer] : 1965 Requested By: KENNEDI GLASER Order Number: [id number] Reading MD: Lisa Rea MD Measurements Intervals [place] Rate: 87 P: 33 MN: 115 QRS: 42 QRSD: 81 T: 50 QT: 330 QTc: 397 Interpretive Statements Sinus rhythm Atrial premature complexes Borderline short [place] interval Probable left atrial enlargement Anteroseptal infarct, age indeterminate Compared to ECG 06/10/2018 16:43:21 Sinus tachycardia no longer present Myocardial infarct finding still present Electronically Signed On 07-07-2019 15:39:05 PDT by Lisa Rea MD CM:EKGRPT:ELECTROCARDIOGRAM REPORT [id number] 1539 KENNEDI GLASER MD EPIPHANY DRAFT REPORT KENNEDI GLASER MD
--- NOTE | ~2019-07-04 | PR ---
[place], [place] PROGRESS NOTE NAME: ILENE WALKER UNIT #: [id number] ROOM: 406 DOCTOR: KENNEDI GLASER MD BIRTHDATE: [birth year] DOS: 07/08/2019 SUBJECTIVE: The patient is resting, now feels good and is not having any complaints. OBJECTIVE: VITAL SIGNS: Graphic trend shows a pressure of 125/67, pulse of 83, respirations 18, temperature 98.7. LUNGS: Clear. HEART: Regular. ABDOMEN: Obese, soft, nontender. EXTREMITIES: Without any edema. LABORATORY DATA: Glucose is 87, BUN 9, creatinine 0.63, sodium 140, potassium 4.1, chloride 108. WBC count is 9.0, hemoglobin 10.2, hematocrit 32.9, platelets 259. Chest x-ray shows improving infiltrates. ASSESSMENT AND PLAN: 1. Bilateral pneumonia with strep pneumonia and Strep pneumoniae sepsis. The patient is definitely much better. Repeat blood cultures are negative. Chest x-ray shows improvement. Plan is to discharge her to home today on p.o. antibiotics. 2. Poorly healing wound on the abdominal wall. Advised Neosporin application. She has been getting honey dressings here. 3. Again, sepsis, which has resolved, ruled in, but resolving. Repeat cultures negative. 4. Chronic obstructive pulmonary disease with moderate cigarette smoker, advised smoking cessation. KENNEDI GLASER MD CM:PNTRANS 0928 1326 KENNEDI GLASER MD 07/08/19 1325 interface
--- NOTE | ~2019-07-04 | PR ---
[place], [place] PROGRESS NOTE NAME: ILENE WALKER UNIT #: [id number] ROOM: 406 DOCTOR: KENNEDI GLASER MD BIRTHDATE: [birth year] DOS: 07/07/2019 SUBJECTIVE: The patient is about the same. The patient feels much better this morning after the Ambien was started. She slept good. She is eating better, does not have any new complaints. Would like to have her monitor discontinued. OBJECTIVE: VITAL SIGNS: This morning, graphic trend shows a blood pressure 130/73, pulse of 70, respirations 17, temperature 98. LUNGS: Clear. HEART: Regular. ABDOMEN: Obese, soft, and nontender. EXTREMITIES: Without any edema. ASSESSMENT AND PLAN: 1. Bilateral pneumonia with Streptococcus pneumoniae growing in the blood. The patient is on IV antibiotics. 2. Sepsis with Streptococcus pneumoniae on IV antibiotics. Repeat blood cultures were ordered. We do not have the results yet on that. If the second blood cultures come back negative, the patient should be able to go home on p.o. antibiotics. 3. Poorly healing wound of the abdominal wall. Continue dressings. 4. Protein-calorie malnutrition. Advised to increase protein intake. KENNEDI GLASER MD CM:PNTRANS [id number] [phone] KENNEDI GLASER MD 07/07/191932 interface
[~2019-07-04 15:14] MED LIST changes: +CEPHALEXIN500 M1 PO
[2019-07-04 15:17] VITALS: BP 125/80
--- NOTE | 2019-07-04 17:12 | NUR ---
TORADOL "HELPED A LITTLE BIT", PT POSITIONED FOR COMFORT W/CALL LIGHT WITHIN TEACH AND SAFETY PRECAUTIONS INTACT.
--- NOTE | 2019-07-04 17:19 | NUR ---
PT WITH A TINY SCABBED/BLISGTERLIKE AREA TO LIP AND SMALL CRACKS IN FINGERS PT W/O EXUDATE OR BLEEDING AND NO TX REQUIRED @ THIS TIME.
[2019-07-04 17:20] VITALS: BP 106/61
[2019-07-04] MEDS ORDERED: NEURONTIN300 MG PO (17:30)
[2019-07-04] MEDS ORDERED: B121000 MCG/1 IM (17:32)
--- NOTE | 2019-07-04 17:58 | NUR ---
PT HAD INFLUENZA IMMUNIZATION 1WK AGO PER PCP.
--- NOTE | 2019-07-04 18:10 | NUR ---
A 54, admitted to , under the services of KENNEDI Pollard MD with a diagnosis of PNEUMONIA. Chief complaint is COLD SYMPTOMS. Patient arrived via stretcher from ER. Monitor applied. Initial assessment completed. Vital signs taken and recorded. KENNEDI POLLARD MD notified of admission to the unit. Orders received. See assessment for past medical history, medications and allergies. Patient and/or family oriented to unit. [address] visitation policy reviewed. Clothing/patient valuable form completed. TATIANNA RITCHIE
[2019-07-04] MEDS ORDERED: NATURE'S BLEND F1 MG PO (19:46)
[2019-07-04] MEDS ORDERED: MELATONIN3 M3 PO (19:46)
[2019-07-04 20:00] VITALS: BP 104/63
--- NOTE | 2019-07-04 20:16 | NUR ---
PT. HAS MULTIPLE COMPLAINTS. GIVE TYLENOL FOR HEADACHE AT 1945 ORDERED, PT. REQUESTING "SOMETHING STRONGER". RESP EASY AND REG NO DISTRESS.
[2019-07-05] VITALS: BP 90/48
--- NOTE | 2019-07-05 00:22 | NUR ---
PT. SLEEPING, TYLENOL EFFECTIVE.
--- NOTE | 2019-07-05 02:58 | NUR ---
TYLENOL GIVEN ORDERED FOR HEADACHE.
--- NOTE | 2019-07-05 03:04 | NUR ---
PT. STATES TYLENOL EFFECTIVE.
--- NOTE | 2019-07-05 06:20 | NUR ---
DR. GLASER NOTIFIED OF POSITIVE BLOOD CULTURES, ORDERS RECEIVED.
--- NOTE | 2019-07-05 07:17 | NUR ---
ILENE WALKER [id number] Please refer to the physician's history and physical for past medical history, comorbid conditions, and allergies. Diagnosis: SEPSIS PNEUMONIA Omid Score: 24,LOW OR NO RISK WOUND DESCRIPTIONS: Wound Number: 1 Location of the wound: umbilical area Type of wound: surigcal Thickness: Partial Size: 0.7cm x 0.7cm x 0.1cm Tunneling: none Undermining: none Sinus Tract: none Presence of Exudate: Serous Amount: Light Color: Red Odor: None Periwound Skin Appearance: Scar Wound edges: approximated Pain (associated with wound): none at time of assessment How does patient state this happened? pt stated she had surgery in September in [place] and had a wound vac placed after surgery and was in a medical induced come until november of this year. She stated that her abdominal has never completely healed but the surgeon stated to follow with her PCP. She stated she will continue to care for this at home. Wound Number: 2 Location of the wound: right plantar aspect of foot towards heel Type of wound: fissure Thickness: Partial Size: 0.1cm x 1.5cm x 0.1cm Tunneling: none Undermining: none Sinus Tract: none Presence of Exudate: Serosanguineous Amount: Light Color: Red Odor: None Periwound Skin Appearance: Dry and flaky Wound edges: approximated Pain (associated with wound): tender to touch How does patient state this happened? pt states she has had this off and on since she was a child and in the winter it is worse. Wound Number: 3 Location of the wound: right plantar aspect of foot towards toes Type of wound: fissure Thickness: Partial Size: 0.1cm x 1.5cm x 0.1cm Tunneling: none Undermining: none Sinus Tract: none Presence of Exudate: Serosanguineous Amount: Light Color: Red Odor: None Periwound Skin Appearance: Dry and flaky Wound edges: approximated Pain (associated with wound): tender to touch How does patient state this happened? pt states she has had this off and on since she was a child and in the winter it is worse. Wound Number: 4 Location of the wound: left plantar aspect of foot below 2nd toe Type of wound: callus Thickness: Full Size: 0.4cm x 0.3cm x <0.1cm Tunneling: none Undermining: none Sinus Tract: none Presence of Exudate: none Amount: None Color: Yellow Odor: None Periwound Skin Appearance: Normal Wound edges: approximated Pain (associated with wound): tender to touch How does patient state this happened? pt stated she had a wart removed in the past but is unsure if that is what it is again or not Surface the patient is resting on: Isoflex SKIN PREVENTION RECOMMENDATION: 1. Pressure redistribution support surface as appropriate 2. Elevate heels 3. Remove boots/TEDS every shift and reapply 4. Head of bed 30 degrees as tolerated 5. Assess nutrition and hydration 6. Manage moisture 7. Avoid the use of containment devices while in bed 8. Use absorptive products on surfaces limit layers of linens on bed 9. Turn and reposition every 1-2 hours in bed and every 1 hour in chair as tolerated 10. Weight shifts every 15 minutes while up in chair 11. Offloading with pillows or device to keep heels elevated off bed 12. Monitor skin at least every shift 13. Inspect under medical devices twice a day WOUND TREATMENT RECOMMENDATIONS: Consult podiatry for bilateral feet and toenail care. Cleanse bilateral feet with nss and apply lac-hydrin BID. Partial thickness guidelines: Cleanse umbilical area with nss and apply sureprep around the wound therahoney to wound bed and cover with optifoam gente. Patient is requesting to follow up with podiatry upon discharge
[2019-07-05 08:00] VITALS: BP 100/52
--- NOTE | 2019-07-05 08:41 | NUR ---
DR GLASER HERE TO SEE PT DR GLASER NOTIFIED OF WOUND RECOMMENDATIONS
[2019-07-05 08:49] LABS: BUN 8 mg/dl (7-24); CHLORIDE 110 mmol/L (98-107); POTASSIUM 3.5 mmol/L (3.5-5.1); SODIUM 142 mmol/L (136-145)
--- NOTE | 2019-07-05 09:00 | NUR ---
[employer] in to talk to patient. Patient states lives at home with . There are few steps in the home. Physician: nicola [facility]: [facility] [place] [facility]: none Patient's level of ADLs: INDEPENDENT Patient has working utilities: all working DME: none Follow-up physician's appointment after d/c: will be made by [facility] nurse director upon discharge Does patient want to access PORTAL?: no Discharge plan discussed with patient she states she lives at home with , is independent in adls and ambulation, she states she will return home when medically stable and denies any home needs, case management will follow. TELLY KERR
--- NOTE | 2019-07-05 09:08 | NUR ---
Spoke with Dr. Wong regarding wound care recommendation she stated to not consult podiatry for toenail care.
--- NOTE | 2019-07-05 10:30 | NUR ---
PT IN AND OUT OF [facility] WITH MULTIPLE PVCS DR GLASER NOTIFIED
[2019-07-05 12:00] VITALS: BP 102/61
--- NOTE | 2019-07-05 12:07 | NUR ---
UMBILICAL WOUND DRESSING DONE,PER ORDER.
[2019-07-05 14:55] LABS: HEMATOCRIT 29.8 % (37.0-47.0); HEMOGLOBIN 9.2 g/dl (12.0-16.0); MEAN CORPUSCULAR HGB 33.3 pg (27.0-31.0); MEAN CORPUSCULAR HGB CONC 30.9 g/dl (33.0-37.0); MEAN PLATELET VOLUME 9.6 fl (9.6-12.3); PLATELET COUNT AUTOMATED 278 10*3/uL (130-400); RED BLOOD COUNT 2.76 10*6/uL (4.10-5.10); RED CELL DISTRI WIDTH 12.6 % (0-14.5); WHITE BLOOD COUNT 7.9 10*3/uL (4.8-10.8)
[2019-07-05 15:29] LABS: TOTAL CELLS COUNTED 100 #CELLS
[2019-07-05 15:30] LABS: PLATELET SUFFICIENCY NORMAL (NORMAL)
[2019-07-05 16:00] VITALS: BP 94/65
--- NOTE | 2019-07-05 16:00 | NUR ---
DR GLASER NOTIFIED OF LAB RESULTS
--- NOTE | 2019-07-05 16:08 | NUR ---
PT INSTRUCTED ON USE OF IS. PT ABLE TO DEMONSTRATE PROPER TECHNIQUE. PT ACHIEVED [phone] CC. PT INSTRUCTED TO USE Q 1-2 HRS W/A
[2019-07-05 20:00] VITALS: BP 140/57
[2019-07-06] VITALS: BP 112/59
--- NOTE | 2019-07-06 00:35 | NUR ---
PATIENT COMPLAINING OF N/V. MEDICATED WITH PRN ZOFRAN. WILL CHECK EFFECTIVENESS.
[2019-07-06 04:00] VITALS: BP 118/69
[2019-07-06 05:36] LABS: HEMATOCRIT 31.3 % (37.0-47.0); HEMOGLOBIN 9.9 g/dl (12.0-16.0); MEAN CELL VOLUME 109.4 fl (81.0-99.0); MEAN CORPUSCULAR HGB 34.6 pg (27.0-31.0); MEAN CORPUSCULAR HGB CONC 31.6 g/dl (33.0-37.0); MEAN PLATELET VOLUME 10.1 fl (9.6-12.3); PLATELET COUNT AUTOMATED 273 10*3/uL (130-400); RED BLOOD COUNT 2.86 10*6/uL (4.10-5.10); RED CELL DISTRI WIDTH 12.6 % (0-14.5); WHITE BLOOD COUNT 12.4 10*3/uL (4.8-10.8)
[2019-07-06 06:06] LABS: BUN 8 mg/dl (7-24); CHLORIDE 110 mmol/L (98-107); CREATININE 0.55 mg/dL (0.55-1.02); POTASSIUM 4.2 mmol/L (3.5-5.1); SODIUM 139 mmol/L (136-145)
[2019-07-06 06:10] LABS: PLATELET SUFFICIENCY NORMAL (NORMAL); ROULEAUX SLIGHT; TOTAL CELLS COUNTED 100 #CELLS
[2019-07-06 06:11] LABS: SCHISTOCYTES FEW
--- NOTE | 2019-07-06 07:37 | NUR ---
AWARE OF RESULTS OF STREP PNA. STATED OK, REPEATS WILL BE DONE.
[2019-07-06 08:00] VITALS: BP 112/70
--- NOTE | 2019-07-06 09:59 | NUR ---
PATIENT MEDICATED WITH TYLENOL FOR C/O HEADACHE. WILL MONITOR
--- NOTE | 2019-07-06 10:00 | NUR ---
PATIENT MEDICATED WITH ZOFRAN FOR C/O SMALL EMESIS AFTER EATING. WILL MONITOR
--- NOTE | 2019-07-06 10:59 | NUR ---
TYLENOL EFFECTIVE FOR HEADACHE
--- NOTE | 2019-07-06 11:00 | NUR ---
ZOFRAN EFFECTIVE FOR NAUSEA.
[2019-07-06 12:00] VITALS: BP 131/78
[2019-07-06 16:00] VITALS: BP 134/79
--- NOTE | 2019-07-06 16:22 | NUR ---
Medicated pt as requested. Resting. Easy Respirations. Family visitng at bedside. No acute distress noted at this time.
--- NOTE | 2019-07-06 17:17 | NUR ---
ADMINISTERED IV TORADOL X 1 ORDERED FOR HEADACHE.
[2019-07-06 20:00] VITALS: BP 130/73
[2019-07-07] VITALS: BP 127/93
--- NOTE | 2019-07-07 06:39 | NUR ---
PATIENT MEDICATED WITH TYLENOL FOR COMPLAINTS OF A HEADACHE. MEDICATED WITH TYLENOL. WILL CHECK EFFECTIVENESS
[2019-07-07 07:32] LABS: BUN 10 mg/dl (7-24); CHLORIDE 109 mmol/L (98-107); CREATININE 0.55 mg/dL (0.55-1.02); SODIUM 141 mmol/L (136-145)
[2019-07-07 07:35] LABS: HEMATOCRIT 30.9 % (37.0-47.0); HEMOGLOBIN 9.8 g/dl (12.0-16.0); MEAN CELL VOLUME 110.4 fl (81.0-99.0); MEAN CORPUSCULAR HGB CONC 31.7 g/dl (33.0-37.0); MEAN PLATELET VOLUME 10.2 fl (9.6-12.3); PLATELET COUNT AUTOMATED 263 10*3/uL (130-400); RED CELL DISTRI WIDTH 12.6 % (0-14.5); WHITE BLOOD COUNT 8.5 10*3/uL (4.8-10.8)
[2019-07-07 08:01] LABS: ATYPICAL LYMPHS 1 % (0-0); PLATELET SUFFICIENCY NORMAL (NORMAL); TOTAL CELLS COUNTED 100 #CELLS
--- NOTE | 2019-07-07 09:00 | NUR ---
REAL TIME TRADER REMOVED PER ORDER.
--- NOTE | 2019-07-07 10:15 | NUR ---
PT COMPLAINING OF NAUSEA, MEDICATED WITH ZOFRAN PER PRN ORDER. WILL MONITOR FOR EFFECTIVENESS.
[2019-07-07 12:00] VITALS: BP 128/74
[2019-07-07 15:05] LABS: MYCOPLASMA PNEUMONIAE IGG 650 U/mL (0-99); MYCOPLASMA PNEUMONIAE IGM <770 U/mL (0-769)
[2019-07-07 16:00] VITALS: BP 133/72
[2019-07-07 20:00] VITALS: BP 135/76
[2019-07-08] VITALS: BP 114/96
--- NOTE | 2019-07-08 02:33 | NUR ---
24 HR chart check completed.
[2019-07-08 06:03] LABS: HEMATOCRIT 32.9 % (37.0-47.0); HEMOGLOBIN 10.2 g/dl (12.0-16.0); MEAN CORPUSCULAR HGB 34.1 pg (27.0-31.0); MEAN PLATELET VOLUME 9.8 fl (9.6-12.3); PLATELET COUNT AUTOMATED 259 10*3/uL (130-400); RED BLOOD COUNT 2.99 10*6/uL (4.10-5.10); RED CELL DISTRI WIDTH 12.7 % (0-14.5)
[2019-07-08 06:19] LABS: BUN 9 mg/dl (7-24); CHLORIDE 108 mmol/L (98-107); CREATININE 0.63 mg/dL (0.55-1.02); POTASSIUM 4.1 mmol/L (3.5-5.1); SODIUM 140 mmol/L (136-145)
[2019-07-08 06:21] LABS: VANCOMYCIN TROUGH 16.1 ug/mL (10-20)
[2019-07-08 07:37] LABS: PLATELET SUFFICIENCY NORMAL (NORMAL); TOTAL CELLS COUNTED 100 #CELLS
[2019-07-08 08:00] VITALS: BP 125/67
[2019-07-08] MEDS ORDERED: PREDNISONE5 MG PO (08:07)
[2019-07-08] MEDS ORDERED: LEVAQUIN750 M1 PO (08:07)
--- NOTE | 2019-07-08 09:50 | NUR ---
IN TO DO D/C PHOTOS, PT STATES HER IS ALREADY HERE WAITING AND SHE DOESN'T WANT TO WAIT.
--- NOTE | 2019-07-08 09:55 | NUR ---
Discharge instructions reviewed with patient/family. Patient receptive and verbalizes understanding. Follow-up care arranged. Written instructions given to patient/family. IV site removed. TAITANNA TENORIO
== END 2019-07-08 09:55 | disposition home or self-care (01) | DRG 720 ==
LOC: ED 15:14 → EDHOLD 17:15 → 4E 17:15
PROVIDERS: ADMIT Internal Medicine
DX: A40.3 Sepsis due to Streptococcus pneumoniae (principal); E46 Unspecified protein-calorie malnutrition; J13 Pneumonia due to Streptococcus pneumoniae; J44.1 Chronic obstructive pulmonary disease with (acute) exacerbation; F17.210 Nicotine dependence, cigarettes, uncomplicated; G62.9 Polyneuropathy, unspecified; F51.01 Primary insomnia; L85.0 Acquired ichthyosis; F32.9 Major depressive disorder, single episode, unspecified; J44.0 Chronic obstructive pulmonary disease with (acute) lower respiratory infection; Z88.1 Allergy status to other antibiotic agents; Z88.5 Allergy status to narcotic agent; Z88.2 Allergy status to sulfonamides; Z90.49 Acquired absence of other specified parts of digestive tract; Z98.84 Bariatric surgery status; Z90.710 Acquired absence of both cervix and uterus; Z82.3 Family history of stroke; Z82.49 Family history of ischemic heart disease and other diseases of the circulatory system; Z80.8 Family history of malignant neoplasm of other organs or systems; Z71.6 Tobacco abuse counseling; Z68.1 Body mass index [BMI] 19.9 or less, adult

== ENCOUNTER → 2019-10-07 | Outpatient (CLI) | payer OTHER ==
[~2019-10-07] MED LIST changes: +B121000 MCG/1 IM; +LEVAQUIN750 M1 PO; +MELATONIN3 M3 PO; +NATURE'S BLEND F1 MG PO; +NEURONTIN300 MG PO; +PREDNISONE5 MG PO
== END | disposition home or self-care (01) ==
LOC: RAD 12:46
DX: M19.071 Primary osteoarthritis, right ankle and foot (principal)

== ENCOUNTER 2020-04-16 13:39 | Emergency (ER) | payer MEDICARE, MEDICAID ==
[~2020-04-16] VITALS: Ht 172.7 cm; Wt 65.8 kg
[2020-04-16 14:51] LABS: BASO % 0.6 % (0.0-1.0); EOS # 0.6 10*3/uL (0.0-0.4); EOS % 8.5 % (1.0-4.0); HEMATOCRIT 36.4 % (37.0-47.0); LYMPH # 1.3 10*3/uL (1.3-4.4); LYMPH % 18.7 % (27.0-41.0); MEAN CELL VOLUME 105.5 fl (81.0-99.0); MEAN CORPUSCULAR HGB 33.6 pg (27.0-31.0); MEAN CORPUSCULAR HGB CONC 31.9 g/dl (33.0-37.0); MEAN PLATELET VOLUME 9.2 fl (9.6-12.3); MONO # 0.5 10*3/uL (0.1-1.0); MONO % 7.3 % (3.0-9.0); NEUT # 4.4 10*3/uL (2.3-7.9); NEUT % 64.6 % (47.0-73.0); PLATELET COUNT AUTOMATED 266 10*3/uL (130-400); RED BLOOD COUNT 3.45 10*6/uL (4.10-5.10); RED CELL DISTRI WIDTH 13.7 % (0-14.5); WHITE BLOOD COUNT 6.8 10*3/uL (4.8-10.8)
[2020-04-16 15:02] LABS: ACT PARTIAL THROMBO TIME 30.1 SECONDS (20.0-32.1); INTERNATIONAL NORM RATIO 0.9 (2.0-3.5)
[2020-04-16 15:07] LABS: ALBUMIN 2.7 gm/dl (3.1-4.5); ALKALINE PHOSPHATASE 211 U/L (45-117); BUN 6 mg/dl (7-24); CHLORIDE 108 mmol/L (98-107); CREATININE 0.61 mg/dL (0.55-1.02); LIPASE 66 U/L (73-393); SGOT/AST 27 IU/L (3-35); SGPT/ALT 25 U/L (12-78); SODIUM 140 mmol/L (136-145); TOTAL PROTEIN 6.6 gm/dL (6.4-8.2)
[2020-04-16] MEDS ORDERED: Motrin,Rufen800 MG PO (19:19)
== END 2020-04-16 20:10 | disposition home or self-care (01) ==
LOC: ED 13:39
PROVIDERS: Nurse Practitioner Family
DX: L02.211 Cutaneous abscess of abdominal wall (principal); K21.9 Gastro-esophageal reflux disease without esophagitis; Z79.899 Other long term (current) drug therapy

== ENCOUNTER 2020-10-04 17:48 | Inpatient (IN) | payer MEDICARE, MEDICAID ==
[~2020-10-04] VITALS: Ht 172.7 cm; Wt 77.2 kg
[~2020-10-04 17:48] MED LIST changes: +Motrin,Rufen800 MG PO; -NEURONTIN300 MG PO; +NEURONTIN600 MG PO
[2020-10-04 18:02] VITALS: BP 110/75
[2020-10-04 18:32] LABS: BILIRUBIN Negative (Negative); BLOOD Negative (Negative); CLARITY Clear (Clear); COLOR Yellow (Yellow); GLUCOSE Negative (Negative); KETONE Negative (Negative); LEUKO ESTERASE 3+ (Negative); NITRITE Negative (Negative); PH 6.5 (4.5-8.0); UROBILINOGEN 0.2 E.U./dl (0.0-1.0)
[2020-10-04 18:37] LABS: BASO # 0.1 10*3/uL (0.0-0.1); BASO % 0.4 % (0.0-1.0); EOS # 0.3 10*3/uL (0.0-0.4); EOS % 1.8 % (1.0-4.0); HEMATOCRIT 32.5 % (37.0-47.0); LYMPH # 1.3 10*3/uL (1.3-4.4); LYMPH % 9.4 % (27.0-41.0); MEAN CELL VOLUME 100.3 fl (81.0-99.0); MEAN CORPUSCULAR HGB 31.2 pg (27.0-31.0); MEAN CORPUSCULAR HGB CONC 31.1 g/dl (33.0-37.0); MEAN PLATELET VOLUME 9.2 fl (9.6-12.3); MONO # 0.6 10*3/uL (0.1-1.0); MONO % 4.1 % (3.0-9.0); NEUT # 11.9 10*3/uL (2.3-7.9); NEUT % 83.3 % (47.0-73.0); PLATELET COUNT AUTOMATED 360 10*3/uL (130-400); RED BLOOD COUNT 3.24 10*6/uL (4.10-5.10); RED CELL DISTRI WIDTH 13.2 % (0-14.5); WHITE BLOOD COUNT 14.3 10*3/uL (4.8-10.8)
[2020-10-04 18:41] LABS: BACTERIA 3+; RBC 0-2 rbc/hpf (0-2); WBC 21-30 wbc/hpf (0-5); YEAST TRACE
[2020-10-04 18:47] LABS: ABG BASE EXCESS -0.1 mmol/L (-2.0-2.0); ARTERIAL BLOOD GAS PH 7.401 (7.35-7.45)
[2020-10-04 18:53] LABS: ALBUMIN 2.5 gm/dl (3.1-4.5); ALKALINE PHOSPHATASE 178 U/L (45-117); BUN 9 mg/dl (7-24); CHLORIDE 102 mmol/L (98-107); CPK 27 U/L (26-192); CREATININE 0.99 mg/dL (0.55-1.02); LDH 443 U/L (84-246); POTASSIUM 3.7 mmol/L (3.5-5.1); SGOT/AST 38 IU/L (3-35); SGPT/ALT 29 U/L (12-78); SODIUM 134 mmol/L (136-145); TOTAL PROTEIN 7.3 gm/dL (6.4-8.2)
[2020-10-04 18:57] LABS: TROPONIN I < 0.015 ng/ml (<0.045)
[2020-10-04 19:08] LABS: ACT PARTIAL THROMBO TIME 33.8 SECONDS (20.0-32.1); INTERNATIONAL NORM RATIO 0.9 (2.0-3.5)
[2020-10-04 19:32] VITALS: BP 104/65
[2020-10-04 20:36] VITALS: BP 119/52
[2020-10-04 21:11] VITALS: BP 111/67
[2020-10-04 21:27] LABS: ABG BASE EXCESS -0.2 mmol/L (-2.0-2.0); ARTERIAL BLOOD GAS PH 7.424 (7.35-7.45)
[2020-10-04 23:30] VITALS: BP 104/61
[2020-10-05] MEDS ORDERED: LASIX40 MG PO (00:06)
[2020-10-05] MEDS ORDERED: CYMBALTA60 MG PO (00:09)
[2020-10-05] MEDS ORDERED: TOPAMAX25 M3 PO (00:10)
[2020-10-05] MEDS ORDERED: VISTARIL50 MG PO (00:11)
[2020-10-05] MEDS ORDERED: SEROQUEL200 MG PO (00:12)
[2020-10-05] MEDS ORDERED: CAMPRAL (00:12)
[2020-10-05] MEDS ORDERED: CYCLOBENZAPRINE10 MG PO (00:14)
[2020-10-05] MEDS ORDERED: OMEPRAZOLE40 MG PO (02:28)
[2020-10-05] MEDS ORDERED: ANORO ELLIPTA1 EACH INH (02:28)
[2020-10-05] MEDS ORDERED: GOOD NEIGHBOR L10 MG PO (02:29)
[2020-10-05] MEDS ORDERED: THERA-TABS1 EACH PO (02:29)
[2020-10-05 04:00] VITALS: BP 108/70
[2020-10-05 06:07] LABS: CHLORIDE 109 mmol/L (98-107); POTASSIUM 4.3 mmol/L (3.5-5.1); SODIUM 138 mmol/L (136-145)
[2020-10-05 06:19] LABS: MEAN CELL VOLUME 99.7 fl (81.0-99.0); MEAN CORPUSCULAR HGB 32.1 pg (27.0-31.0); MEAN CORPUSCULAR HGB CONC 32.2 g/dl (33.0-37.0); MEAN PLATELET VOLUME 9.6 fl (9.6-12.3); PLATELET COUNT AUTOMATED 377 10*3/uL (130-400); RED BLOOD COUNT 3.21 10*6/uL (4.10-5.10); RED CELL DISTRI WIDTH 13.2 % (0-14.5); WHITE BLOOD COUNT 12.4 10*3/uL (4.8-10.8)
[2020-10-05 06:27] LABS: ALBUMIN 2.2 gm/dl (3.1-4.5); ALKALINE PHOSPHATASE 171 U/L (45-117); BUN 9 mg/dl (7-24); CREATININE 0.78 mg/dL (0.55-1.02); LDH 392 U/L (84-246); SGOT/AST 28 IU/L (3-35); SGPT/ALT 23 U/L (12-78); TOTAL PROTEIN 6.9 gm/dL (6.4-8.2)
[2020-10-05 07:22] LABS: PLATELET SUFFICIENCY NORMAL (NORMAL); TOTAL CELLS COUNTED 100 #CELLS
[2020-10-05 08:00] VITALS: BP 102/59
[2020-10-05 11:44] LABS: ABG BASE EXCESS 0.5 mmol/L (-2.0-2.0); ARTERIAL BLOOD GAS PH 7.405 (7.35-7.45)
[2020-10-05 12:00] VITALS: BP 113/45
[2020-10-05 16:00] VITALS: BP 92/54
[2020-10-05] MEDS ORDERED: ACAMPROSATE CA333 M1 PO (18:48)
[2020-10-05 20:00] VITALS: BP 94/46
[2020-10-06] VITALS: BP 112/61
[2020-10-06 04:00] VITALS: BP 104/54
[2020-10-06 06:08] LABS: ALBUMIN 2.2 gm/dl (3.1-4.5); ALKALINE PHOSPHATASE 150 U/L (45-117); BUN 15 mg/dl (7-24); CHLORIDE 110 mmol/L (98-107); CPK 21 U/L (26-192); CREATININE 0.85 mg/dL (0.55-1.02); LDH 387 U/L (84-246); SGOT/AST 28 IU/L (3-35); SGPT/ALT 20 U/L (12-78); SODIUM 138 mmol/L (136-145); TOTAL PROTEIN 6.8 gm/dL (6.4-8.2)
[2020-10-06 06:27] LABS: HEMATOCRIT 32.6 % (37.0-47.0); MEAN CORPUSCULAR HGB 31.5 pg (27.0-31.0); MEAN CORPUSCULAR HGB CONC 30.7 g/dl (33.0-37.0); MEAN PLATELET VOLUME 9.5 fl (9.6-12.3); PLATELET COUNT AUTOMATED 409 10*3/uL (130-400); RED BLOOD COUNT 3.17 10*6/uL (4.10-5.10); RED CELL DISTRI WIDTH 13.2 % (0-14.5); WHITE BLOOD COUNT 13.9 10*3/uL (4.8-10.8)
[2020-10-06 06:36] LABS: MEAN CELL VOLUME 102.8 fl (81.0-99.0)
[2020-10-06 07:34] LABS: PLATELET SUFFICIENCY HIGH (NORMAL); TOTAL CELLS COUNTED 100 #CELLS
[2020-10-06 07:35] LABS: VACUOLATION OF NEUTROPHILS SLIGHT
[2020-10-06 08:00] VITALS: BP 110/58
[2020-10-06 09:07] LABS: ABG BASE EXCESS -2.5 mmol/L (-2.0-2.0); ARTERIAL BLOOD GAS PH 7.386 (7.35-7.45)
[2020-10-06 12:00] VITALS: BP 124/55
[2020-10-06 16:00] VITALS: BP 123/67
[2020-10-06 20:00] VITALS: BP 114/61
[2020-10-07] VITALS: BP 98/56
[2020-10-07 04:00] VITALS: BP 99/49
[2020-10-07 06:03] LABS: ALBUMIN 2.4 gm/dl (3.1-4.5); ALKALINE PHOSPHATASE 144 U/L (45-117); BUN 15 mg/dl (7-24); CHLORIDE 110 mmol/L (98-107); CPK 17 U/L (26-192); CREATININE 0.75 mg/dL (0.55-1.02); LDH 361 U/L (84-246); POTASSIUM 4.4 mmol/L (3.5-5.1); SGOT/AST 25 IU/L (3-35); SGPT/ALT 22 U/L (12-78); SODIUM 139 mmol/L (136-145); TOTAL PROTEIN 7.1 gm/dL (6.4-8.2)
[2020-10-07 06:41] LABS: BASO % 0.3 % (0.0-1.0); EOS # 0.1 10*3/uL (0.0-0.4); EOS % 0.8 % (1.0-4.0); HEMATOCRIT 35.2 % (37.0-47.0); LYMPH # 1.1 10*3/uL (1.3-4.4); LYMPH % 9.2 % (27.0-41.0); MEAN CELL VOLUME 103.8 fl (81.0-99.0); MEAN CORPUSCULAR HGB 31.3 pg (27.0-31.0); MEAN CORPUSCULAR HGB CONC 30.1 g/dl (33.0-37.0); MEAN PLATELET VOLUME 9.5 fl (9.6-12.3); MONO # 0.4 10*3/uL (0.1-1.0); MONO % 3.6 % (3.0-9.0); NEUT # 9.8 10*3/uL (2.3-7.9); NEUT % 84.7 % (47.0-73.0); PLATELET COUNT AUTOMATED 464 10*3/uL (130-400); RED BLOOD COUNT 3.39 10*6/uL (4.10-5.10); RED CELL DISTRI WIDTH 13.4 % (0-14.5); WHITE BLOOD COUNT 11.5 10*3/uL (4.8-10.8)
[2020-10-07 08:00] VITALS: BP 113/72
[2020-10-07 10:13] LABS: ABG BASE EXCESS -1.4 mmol/L (-2.0-2.0); ARTERIAL BLOOD GAS PH 7.41 (7.35-7.45)
[2020-10-07 12:00] VITALS: BP 120/62
[2020-10-07 16:00] VITALS: BP 123/81
[2020-10-07 20:00] VITALS: BP 102/60
[2020-10-08] VITALS: BP 99/49
[2020-10-08 06:34] LABS: BASO % 0.3 % (0.0-1.0); EOS # 0.1 10*3/uL (0.0-0.4); EOS % 0.9 % (1.0-4.0); HEMATOCRIT 33.3 % (37.0-47.0); LYMPH # 1.4 10*3/uL (1.3-4.4); LYMPH % 14.2 % (27.0-41.0); MEAN CELL VOLUME 100.9 fl (81.0-99.0); MEAN CORPUSCULAR HGB 31.2 pg (27.0-31.0); MEAN CORPUSCULAR HGB CONC 30.9 g/dl (33.0-37.0); MEAN PLATELET VOLUME 9.1 fl (9.6-12.3); MONO # 0.4 10*3/uL (0.1-1.0); NEUT # 7.7 10*3/uL (2.3-7.9); NEUT % 78.7 % (47.0-73.0); PLATELET COUNT AUTOMATED 506 10*3/uL (130-400); RED CELL DISTRI WIDTH 13.2 % (0-14.5); WHITE BLOOD COUNT 9.8 10*3/uL (4.8-10.8)
[2020-10-08 06:50] LABS: ALBUMIN 2.4 gm/dl (3.1-4.5); ALKALINE PHOSPHATASE 131 U/L (45-117); BUN 16 mg/dl (7-24); CHLORIDE 104 mmol/L (98-107); CPK 13 U/L (26-192); CREATININE 0.66 mg/dL (0.55-1.02); POTASSIUM 4.8 mmol/L (3.5-5.1); SGOT/AST 17 IU/L (3-35); SGPT/ALT 20 U/L (12-78); SODIUM 135 mmol/L (136-145); TOTAL PROTEIN 6.7 gm/dL (6.4-8.2)
[2020-10-08 08:00] VITALS: BP 116/75
[2020-10-08 08:30] VITALS: BP 120/62; BP 120/72
[2020-10-08 12:00] VITALS: BP 120/64
== END 2020-10-08 16:06 | disposition left against medical advice (07) | DRG 193 ==
LOC: ED 17:48 → 5E 22:23 → ICCU 22:23 → EDHOLD 22:23 → ICCU 23:39 → 5E 10-07 14:55
PROVIDERS: Emergency Medicine; Internal Medicine Critical Care Medicine; ADMIT Internal Medicine; ATTEND Internal Medicine
PROC: 5A09357 Assistance with Respiratory Ventilation, Less than 24 Consecutive Hours, Continuous Positive Airway Pressure (ICD-10-PCS; principal; 2020-10-04)
PROC: 5A0935A Assistance with Respiratory Ventilation, Less than 24 Consecutive Hours, High Flow/Velocity Cannula (ICD-10-PCS; 2020-10-04)
PROC: 5A09357 Assistance with Respiratory Ventilation, Less than 24 Consecutive Hours, Continuous Positive Airway Pressure (ICD-10-PCS; 2020-10-05)
PROC: 5A0935A Assistance with Respiratory Ventilation, Less than 24 Consecutive Hours, High Flow/Velocity Cannula (ICD-10-PCS; 2020-10-05)
PROC: 5A09357 Assistance with Respiratory Ventilation, Less than 24 Consecutive Hours, Continuous Positive Airway Pressure (ICD-10-PCS; 2020-10-06)
PROC: 5A0935A Assistance with Respiratory Ventilation, Less than 24 Consecutive Hours, High Flow/Velocity Cannula (ICD-10-PCS; 2020-10-06)
PROC: 5A09357 Assistance with Respiratory Ventilation, Less than 24 Consecutive Hours, Continuous Positive Airway Pressure (ICD-10-PCS; 2020-10-07)
DX: J18.9 Pneumonia, unspecified organism (principal); R65.11 Systemic inflammatory response syndrome (SIRS) of non-infectious origin with acute organ dysfunction; J96.21 Acute and chronic respiratory failure with hypoxia; E43 Unspecified severe protein-calorie malnutrition; J44.0 Chronic obstructive pulmonary disease with (acute) lower respiratory infection; F33.9 Major depressive disorder, recurrent, unspecified; J44.1 Chronic obstructive pulmonary disease with (acute) exacerbation; K63.2 Fistula of intestine; G62.9 Polyneuropathy, unspecified; G47.09 Other insomnia; K21.00 Gastro-esophageal reflux disease with esophagitis, without bleeding; Z88.6 Allergy status to analgesic agent; Z88.1 Allergy status to other antibiotic agents; Z88.2 Allergy status to sulfonamides; Z88.8 Allergy status to other drugs, medicaments and biological substances; Z90.710 Acquired absence of both cervix and uterus; Z82.49 Family history of ischemic heart disease and other diseases of the circulatory system; Z82.3 Family history of stroke; Z79.899 Other long term (current) drug therapy; Z68.24 Body mass index [BMI] 24.0-24.9, adult

== ENCOUNTER 2020-11-24 00:10 | Inpatient (IN) | payer MEDICARE, MEDICAID ==
[~2020-11-24] VITALS: Ht 173 cm; Wt 79.6 kg
[2020-11-24] VITALS (7 sets, daily range): BP systolic 109–155; BP diastolic 56–80
[~2020-11-24 00:10] MED LIST changes: +ACAMPROSATE CA333 M1 PO; +ANORO ELLIPTA1 EACH INH; +CAMPRAL; +CYCLOBENZAPRINE10 MG PO; +CYMBALTA60 MG PO; +GOOD NEIGHBOR L10 MG PO; +LASIX40 MG PO; +OMEPRAZOLE40 MG PO; +SEROQUEL200 MG PO; +THERA-TABS1 EACH PO; +TOPAMAX25 M3 PO; +VISTARIL50 MG PO
[2020-11-24 00:33] LABS: BASO # 0.1 10*3/uL (0.0-0.1); BASO % 0.9 % (0.0-1.0); EOS # 0.4 10*3/uL (0.0-0.4); EOS % 5.7 % (1.0-4.0); HEMATOCRIT 35.4 % (37.0-47.0); LYMPH # 1.8 10*3/uL (1.3-4.4); LYMPH % 26.1 % (27.0-41.0); MEAN CELL VOLUME 98.3 fl (81.0-99.0); MEAN CORPUSCULAR HGB 31.7 pg (27.0-31.0); MEAN CORPUSCULAR HGB CONC 32.2 g/dl (33.0-37.0); MEAN PLATELET VOLUME 9.4 fl (9.6-12.3); MONO # 0.6 10*3/uL (0.1-1.0); MONO % 8.5 % (3.0-9.0); NEUT # 4.1 10*3/uL (2.3-7.9); NEUT % 58.5 % (47.0-73.0); PLATELET COUNT AUTOMATED 253 10*3/uL (130-400); RED CELL DISTRI WIDTH 14.7 % (0-14.5)
[2020-11-24 00:50] LABS: ALKALINE PHOSPHATASE 344 U/L (45-117); BUN 12 mg/dl (7-24); CHLORIDE 112 mmol/L (98-107); CREATININE 1.03 mg/dL (0.55-1.02); SGOT/AST 69 IU/L (3-35); SGPT/ALT 55 U/L (12-78); SODIUM 141 mmol/L (136-145); TOTAL PROTEIN 6.9 gm/dL (6.4-8.2)
[2020-11-25] VITALS: BP 127/56
[2020-11-25 06:31] LABS: BASO % 0.6 % (0.0-1.0); EOS # 0.7 10*3/uL (0.0-0.4); EOS % 12.6 % (1.0-4.0); HEMATOCRIT 32.9 % (37.0-47.0); LYMPH # 1.4 10*3/uL (1.3-4.4); LYMPH % 26.5 % (27.0-41.0); MEAN CORPUSCULAR HGB 32.2 pg (27.0-31.0); MEAN CORPUSCULAR HGB CONC 31.6 g/dl (33.0-37.0); MEAN PLATELET VOLUME 9.6 fl (9.6-12.3); MONO # 0.4 10*3/uL (0.1-1.0); MONO % 7.6 % (3.0-9.0); NEUT # 2.8 10*3/uL (2.3-7.9); NEUT % 52.5 % (47.0-73.0); PLATELET COUNT AUTOMATED 183 10*3/uL (130-400); RED BLOOD COUNT 3.23 10*6/uL (4.10-5.10); WHITE BLOOD COUNT 5.4 10*3/uL (4.8-10.8)
[2020-11-25 06:38] LABS: MEAN CELL VOLUME 101.9 fl (81.0-99.0)
[2020-11-25 06:52] LABS: ALBUMIN 2.5 gm/dl (3.1-4.5); ALKALINE PHOSPHATASE 227 U/L (45-117); BUN 4 mg/dl (7-24); CHLORIDE 113 mmol/L (98-107); CREATININE 0.58 mg/dL (0.55-1.02); SGOT/AST 58 IU/L (3-35); SGPT/ALT 40 U/L (12-78); SODIUM 143 mmol/L (136-145)
[2020-11-25 06:54] LABS: POTASSIUM 3.8 mmol/L (3.5-5.1)
[2020-11-25 08:00] VITALS: BP 120/60
== END 2020-11-25 14:25 | disposition left against medical advice (07) | DRG 388 ==
LOC: ED 00:10 → 5E 02:49 → EDHOLD 02:49 → 5E 03:24
PROVIDERS: Internal Medicine; ADMIT Internal Medicine; ATTEND Internal Medicine
DX: K56.609 Unspecified intestinal obstruction, unspecified as to partial versus complete obstruction (principal); J96.01 Acute respiratory failure with hypoxia; N17.9 Acute kidney failure, unspecified; K63.2 Fistula of intestine; E44.1 Mild protein-calorie malnutrition; D64.9 Anemia, unspecified; G62.9 Polyneuropathy, unspecified; K21.9 Gastro-esophageal reflux disease without esophagitis; F17.210 Nicotine dependence, cigarettes, uncomplicated; R74.01 Elevation of levels of liver transaminase levels; G89.29 Other chronic pain; R79.89 Other specified abnormal findings of blood chemistry; N18.31 Chronic kidney disease, stage 3a; Z53.29 Procedure and treatment not carried out because of patient's decision for other reasons; J44.9 Chronic obstructive pulmonary disease, unspecified; Z88.1 Allergy status to other antibiotic agents; Z88.5 Allergy status to narcotic agent; Z88.2 Allergy status to sulfonamides; Z98.84 Bariatric surgery status; Z90.49 Acquired absence of other specified parts of digestive tract; Z90.710 Acquired absence of both cervix and uterus; Z98.891 History of uterine scar from previous surgery; Z82.3 Family history of stroke; Z82.49 Family history of ischemic heart disease and other diseases of the circulatory system; Z80.8 Family history of malignant neoplasm of other organs or systems; Z87.440 Personal history of urinary (tract) infections; Z79.899 Other long term (current) drug therapy; Z91.19 Patient's noncompliance with other medical treatment and regimen; Z68.26 Body mass index [BMI] 26.0-26.9, adult